=== PATIENT | female | born 1935 | race Caucasian/White ===

== ENCOUNTER → 2018-04-09 13:43 | Outpatient (REF) | payer MEDICARE, OTHER, SELFPAY | LOC: LAB 13:43 | PROVIDERS: Visit Provider Otolaryngology Facial Plastic Surgery | DX: J32.4 Chronic pansinusitis (principal); J32.0 Chronic maxillary sinusitis | CPT/HCPCS: 87070; 87077; 87147; 87186; 87205 ==

== ENCOUNTER → 2018-06-09 14:46 | Outpatient (CLI) | payer MEDICARE, OTHER, SELFPAY ==
[2018-06-09 15:33] LABS: Erythrocyte Sedimentation Rate 18 MM/HR (0-20)
[2018-06-09 15:55] LABS: C-Reactive Protein Quant < 0.5 mg/dL (<1.0)
== END ==
PROVIDERS: PCP Physician Assistant Medical; Visit Provider Specialist
DX: M31.6 Other giant cell arteritis (principal)
CPT/HCPCS: 36415; 85651; 86140

== ENCOUNTER → 2018-07-04 17:54 | Outpatient (REF) | payer MEDICARE, OTHER, SELFPAY | LOC: LAB 17:54 | PROVIDERS: PCP Physician Assistant Medical; Visit Provider Otolaryngology Facial Plastic Surgery | DX: R51 Headache (principal); J32.0 Chronic maxillary sinusitis | CPT/HCPCS: 87070; 87075; 87077; 87147; 87186; 87205 ==

== ENCOUNTER → 2019-07-16 15:57 | Outpatient (CLI) | payer MEDICARE, OTHER, SELFPAY ==
--- NOTE | 2019-07-16 15:59 | DI.MG.S_ITS ---
BILATERAL DIGITAL SCREENING MAMMOGRAM 3D/2D WITH CAD: 07/16/2019 CLINICAL: Routine screening. Family history of breast cancer. Comparison is made to exam dated: 08/29/2017 mammogram - [facility]. There are scattered fibroglandular elements in both breasts. Current study was also evaluated with a Computer Aided Detection (CAD) system. There are benign calcifications in both breasts. No significant masses, calcifications, or other findings are seen in either breast. There has been no significant interval change. IMPRESSION: There is no mammographic evidence of malignancy. A 1 year screening mammogram is recommended. This exam was interpreted at Station ID: [id number]. NOTE: For mammograms, a report in lay terms will be sent to the patient. Approximately 15% of breast malignancies will not be visualized mammographically. In the management of a palpable breast mass, a negative mammogram must not discourage biopsy of a clinically suspicious lesion. Electronically Signed By: Vicente Spangler M.D. aty/ami:07/16/2019 16:52:44 letter sent: Normal Exam ACR BI-RADS Category 2: Benign Finding(s) 3342F
== END ==
PROVIDERS: PCP Family Medicine; Visit Provider Family Medicine
DX: Z12.31 Encounter for screening mammogram for malignant neoplasm of breast (principal); Z80.3 Family history of malignant neoplasm of breast
CPT/HCPCS: 77063; 77067

== ENCOUNTER → 2019-08-13 08:16 | Outpatient (CLI) | payer MEDICARE, OTHER, SELFPAY ==
[2019-08-13 09:45] LABS: Alanine Aminotransferase 26 IU/L (9-52); Albumin 3.9 g/dL (3.5-5.0); Albumin Globulin Ratio 1.3 (1.0-2.8); Alkaline Phosphatase 56 U/L (38-126); Aspartate Aminotransferase 23 IU/L (14-36); BUN Creatinine Ratio 28.9 (6-22); Bilirubin Total 0.5 mg/dL (0.2-1.3); Blood Urea Nitrogen 26 mg/dL (7-17); Calcium 9.4 mg/dL (8.4-10.2); Carbon Dioxide 30 mmol/L (22-32); Chloride 100 mmol/L (98-107); Cholesterol 231 mg/dL (140-199); Estimated Glomerular Filt Rate 59.9 mL/min (>60); Glucose 101 mg/dL (80-110); HDL Cholesterol 78 mg/dL (40-60); HEMOLYSIS < 15 (0-50); LDL Cholesterol Calculated 131 mg/dL (<100); Potassium 4.4 mmol/L (3.4-5.1); Sodium 137 mmol/L (137-145); Total Protein 6.9 g/dL (6.3-8.2); Triglycerides 112 mg/dL (35-150)
== END ==
PROVIDERS: PCP Family Medicine; Visit Provider Family Medicine
DX: E78.5 Hyperlipidemia, unspecified (principal); R73.03 Prediabetes
CPT/HCPCS: 36415; 80053; 80061

== ENCOUNTER → 2020-03-28 12:32 | Outpatient (CLI) | payer MEDICARE, OTHER, SELFPAY | PROVIDERS: PCP Family Medicine; Referring Provider Family Medicine; Visit Provider Family Medicine | DX: M81.0 Age-related osteoporosis without current pathological fracture (principal); Z78.0 Asymptomatic menopausal state; Z82.62 Family history of osteoporosis | CPT/HCPCS: 77080 ==

== ENCOUNTER → 2020-04-17 10:25 | Outpatient (CLI) | payer MEDICARE, OTHER, SELFPAY ==
[2020-04-18 08:42] LABS: COVID19 Sendout Not Detected (Not Detect)
== END ==
PROVIDERS: PCP Family Medicine; Visit Provider Nurse Practitioner
DX: Z01.812 Encounter for preprocedural laboratory examination (principal)
CPT/HCPCS: 87635

== ENCOUNTER → 2020-05-16 08:36 | Outpatient (CLI) | payer MEDICARE, OTHER, SELFPAY ==
[2020-05-16 09:44] LABS: Alanine Aminotransferase 16 IU/L (<35); Albumin 4.1 g/dL (3.5-5.0); Albumin Globulin Ratio 1.3 (1.0-2.8); Alkaline Phosphatase 58 U/L (38-126); Aspartate Aminotransferase 29 IU/L (14-36); BUN Creatinine Ratio 25.9 (6-22); Bilirubin Total 0.6 mg/dL (0.2-1.3); Blood Urea Nitrogen 22 mg/dL (7-17); Calcium 9.9 mg/dL (8.4-10.2); Carbon Dioxide 30 mmol/L (22-32); Chloride 102 mmol/L (98-107); Cholesterol 211 mg/dL (140-199); Estimated Glomerular Filt Rate > 60.0 mL/min (>60); Globulin 3.2 g/dL (1.7-4.1); Glucose 119 mg/dL (80-110); HDL Cholesterol 62 mg/dL (40-60); HEMOLYSIS < 15 (0-50); LDL Cholesterol Calculated 130 mg/dL (<100); Potassium 4.6 mmol/L (3.4-5.1); Sodium 137 mmol/L (137-145); Total Protein 7.3 g/dL (6.3-8.2); Triglycerides 94 mg/dL (35-150); Uric Acid 5.7 mg/dL (2.5-6.2)
[2020-05-16 10:11] LABS: Vitamin D 25 Hydroxy (D3) 72.9 ng/mL (30.0-100.0)
== END ==
PROVIDERS: PCP Family Medicine; Referring Provider Family Medicine; Visit Provider Family Medicine
DX: E78.5 Hyperlipidemia, unspecified (principal); M81.0 Age-related osteoporosis without current pathological fracture; M10.9 Gout, unspecified
CPT/HCPCS: 36415; 80053; 80061; 82306; 84550

== ENCOUNTER 2020-05-21 09:32 | Emergency (ER) | payer MEDICARE, OTHER, SELFPAY ==
[2020-05-21 09:37] VITALS: BP 178/85; PULSE 82; RESP 14; TEMP 36.4; O2SAT 98; BMI 23.0
--- NOTE | 2020-05-21 09:40 | DI.RAD.S_ITS ---
PROCEDURE: XR WRIST LT MIN 3V INDICATIONS: wrist injuyr TECHNIQUE: Four views of the wrist were acquired. COMPARISON: None. FINDINGS: Bones: Decreased mineralization. Subtle cortical irregularity along the dorsum of the distal radius indicating an impaction fracture. Normal bone alignment.. No suspicious bony lesions. Scaphoid view: Intact scaphoid. Soft tissues: Mild dorsal soft tissue swelling. No suspicious soft tissue calcifications. IMPRESSION: Nondisplaced impaction fracture oriented transversely across the distal radius. Dictated by: Mildred Toussaint M.D. on 05/21/2020 at 9:10 Approved by: Mildred Toussaint M.D. on 05/21/2020 at 9:11
--- NOTE | 2020-05-21 12:05 | ED_ITS ---
HPI - Extremity Injury (Upper) <Sona WatkinsANUSHA jimenez - Last Filed: 05/21/20 14:02> General Chief Complaint: Extremity Injury, Upper Stated Complaint: GLF, possibly fractured left wrist Time Seen by Provider: 05/21/20 11:26 Source: patient Mode of arrival: Ambulatory Limitations: no limitations History of Present Illness HPI narrative: 84yo female presents to the ED for L wrist pain that started yesterday after a fall. Patient states she was trying to sit on a chair when she missed the chair and fell onto her left hand yesterday. She noticed some pain and later some bruising, she states this morning when she woke up she noticed it was swelling and thought she should have at x-rayed. Patient states she took Tylenol last night which relieved most pain. She states she is not allergic to Tylenol and is unsure why it is on her allergy list. She has taken it frequently in the past without any issues. Patient denies any other injuries such as head injury, elbow pain, shoulder pain , knee pain, hip pain, or any other concerns. She denies any fevers, chills, nausea, vomiting, diarrhea, or any other concerns. Related Data Home Medications Medication Instructions Recorded Confirmed loteprednol etabonate 0.5 % eye EYE-BOTH ONCE ml 02/02/19 05/11/20 drops,suspension Previous Rx's Medication Instructions Recorded ezetimibe 10 mg tablet 10 mg PO Q DAY #30 tab 12/02/19 fluticasone propionate 50 1 spray NASAL BID #6.6 gram 02/05/20 mcg/actuation nasal spray,suspension nadolol 80 mg tablet 80 mg PO DAILY #90 tab 02/05/20 ergotamine 1 mg-caffeine 100 mg 1 tab PO Q30M #30 tab MDD 3 04/06/20 tablet omeprazole 20 mg capsule,delayed 20 mg PO BID #180 cap 04/06/20 release Allergies Allergy/AdvReac Type Severity Reaction Status Date / Time dichloralphenazone Allergy Mild unknown Verified 05/21/20 09:37 [From MIDRIN] erythromycin base Allergy Mild rash Verified 05/21/20 09:37 [From E-MYCIN] isometheptene [From MIDRIN] Allergy Mild unknown Verified 05/21/20 09:37 metronidazole [From FLAGYL] Allergy Mild unknown Verified 05/21/20 09:37 nitrofurantoin Allergy Mild rash Verified 05/21/20 09:37 [From MACRODANTIN] Sulfa (Sulfonamide Allergy Mild RASH/FEVER Verified 05/21/20 09:37 Antibiotics) [SULFA (SULFONAMIDE ANTIBIOTICS)] doxycycline Allergy Unknown Verified 05/21/20 09:37 Review of Systems <ANUSHA Briscoe - Last Filed: 05/21/20 14:02> Review of Systems Narrative: REVIEW OF SYSTEMS: GENERAL: Denies fever or chills. HENT: No head trauma. EYES: No vision changes. CARDIOVASCULAR: No chest pain or syncope. RESPIRATORY: No shortness of breath. GASTROINTESTINAL: No nausea, vomiting, diarrhea, or constipation. MUSCULOSKELETAL: Complains of left wrist pain, see HPI. INTEGUMENTARY: No rash, lesions, or pruritus. NEURO: No numbness, tingling. PSYCH: No behavior or mood changes. Patient History <ANUSHA Briscoe - Last Filed: 05/21/20 14:02> Medical History Actinic keratosis (Chronic) Chronic kidney disease (CKD) stage G3a/A1, moderately decreased glomerular filtration rate (GFR) between 45-59 mL/min/1.73 square meter and albuminuria creatinine ratio less than 30 mg/g (Acute) Endometriosis (Chronic) GERD (gastroesophageal reflux disease) (Chronic) Impaired fasting glucose (Acute) Migraine headache without aura (Chronic) Osteoporosis (Chronic) Recurrent sinusitis (Chronic) Rosacea (Chronic) Seasonal allergies (Chronic) Vertebral compression fracture (Acute) Surgical History Anesthesia (Resolved) History of colonoscopy (Resolved) History of esophagogastroduodenoscopy (EGD) (Resolved) History of sinus surgery (Resolved) Family History Father Cancer Mother Hypertension History of heart disease Brother Cancer Sister Cancer Grandmother Diabetes mellitus Grandmother No problems noted. Social History Smoking Status: Never smoker Smoking Status: Never smoker alcohol intake frequency: holidays/special occasions only Substance Use Type: does not use Exam <ANSUHA Briscoe - Last Filed: 05/21/20 14:02> Initial Vital Signs Initial Vital Signs: Vital Signs Temperature 97.6 F 05/21/20 09:37 Pulse Rate 82 05/21/20 09:37 Respiratory Rate 14 05/21/20 09:37 Blood Pressure 178/85 H 05/21/20 09:37 Pulse Oximetry 98 05/21/20 09:37 PHYSICAL EXAMINATION: GENERAL: Well groomed, alert, and cooperative. Answers questions promptly and appropriately. Vital signs noted. HENT: Normocephalic, atraumatic. EYES: Symmetrical, sclera white, no periorbital swelling. CARDIOVASCULAR: S1 and S2 sounds normal. Regular rate and rhythm, no murmurs, clicks, or bruits. No pedal edema. RESPIRATORY: Normal respiratory rate, trachea midline, airway patent. No stridor, nasal flaring or accessory muscle use. Lungs are clear in all whitaker. MUSCULOSKELETAL: Tenderness to left wrist, minor swelling, and a moderate amount of ecchymosis noted. Patient reports increased pain with supination and pronation. Patient is able to make a fist with her hand without worsening pain, no pain with palpation of hand, fingers, elbow, shoulder, or hip. Normal gait and coordination. Equal tone and mass bilaterally. EXTREMITIES: CMS intact. No pedal edema. Radial pulses 2+ and equal bilaterally. SKIN: Warm, dry, soft, appropriate color for ethnicity. No lesions, rashes, or wounds. NEURO: Alert and Oriented X 3. No sensory deficits. PSYCH: Appropriate affect and mood. <Yann Hoang MD - Last Filed: 05/21/20 17:17> Initial Vital Signs Initial Vital Signs: Vital Signs Temperature 97.6 F 05/21/20 09:37 Pulse Rate 82 05/21/20 09:37 Respiratory Rate 14 05/21/20 09:37 Blood Pressure 178/85 H 05/21/20 09:37 Pulse Oximetry 98 05/21/20 09:37 Procedures <ANUSHA Briscoe - Last Filed: 05/21/20 14:02> Orthopedic Splinting/Casting Injury #1: Side: left Upper Extremity Injury Location: wrist Upper Extremity Immobilizer: sling/shoulder immobilizer and sugar tong splint Post splinting neuro exam: intact Post splinting vascular exam: intact Placed by: Nursing Additional Comments: CMS intact pre and post splint application. Course <ANUSHA Briscoe - Last Filed: 05/21/20 14:02> Course Course Narrative: Patient given Tylenol prior to splinting for comfort. Denies need of any other stronger pain medication. Orders Ordered: ED Orders 05/21/20 09:40 XR wrist LT min 3V Stat Discontinued Medications Acetaminophen (Tylenol) 975 mg PO NOW ONE Stop: 05/21/20 11:53 Last Admin: 05/21/20 12:17 Dose: 975 mg Documented by: LYNNE Consultations Consultation #1: Patient staffed with Dr. Hoang discussed x-ray results and plan of care. Vital Signs Vital signs: Vital Signs - 8 hr 05/21/20 09:37 05/21/20 12:38 Temperature 97.6 F Pulse Rate 82 72 Respiratory Rate 14 16 Blood Pressure 178/85 H 173/78 H Pulse Oximetry 98 99 <Yann Hoang MD - Last Filed: 05/21/20 17:17> Orders Ordered: ED Orders 05/21/20 09:40 XR wrist LT min 3V Stat Discontinued Medications Acetaminophen (Tylenol) 975 mg PO NOW ONE Stop: 05/21/20 11:53 Last Admin: 05/21/20 12:17 Dose: 975 mg Documented by: LYNNE Vital Signs Vital signs: Vital Signs - 8 hr 05/21/20 09:37 05/21/20 12:38 Temperature 97.6 F Pulse Rate 82 72 Respiratory Rate 14 16 Blood Pressure 178/85 H 173/78 H Pulse Oximetry 98 99 MDM - Extremity Injury (Upper) <ANUSHA Briscoe - Last Filed: 05/21/20 14:02> Medical Records Attestation: I reviewed the patient's medical records. Lab Data Attestation: I reviewed the patient's lab results. Imaging Data Extremity x-ray #1: Radiologist's Impression: [address] [address] XRay Report Signed Patient: Emily Mathias MMR#: [id number] : 1936Acct:[id number] Age/Sex: 84 / FDate of Service: 08/08/20 Loc: ED Accession Number: [id number] Procedure: XR wrist LT min 3V Ordering Provider: Yann Hoang MD PROCEDURE: XR WRIST LT MIN 3V INDICATIONS: wrist injuyr TECHNIQUE: Four views of the wrist were acquired. COMPARISON: None. FINDINGS: Bones: Decreased mineralization. Subtle cortical irregularity along the dorsum of the distal radius indicating an impaction fracture. Normal bone alignment.. No suspicious bony lesions. Scaphoid view: Intact scaphoid. Soft tissues: Mild dorsal soft tissue swelling. No suspicious soft tissue calcifications. IMPRESSION: Nondisplaced impaction fracture oriented transversely across the distal radius. Dictated by: Mildred Toussaint M.D. on 05/21/2020 at 9:10 Approved by: Mildred Toussaint M.D. on 05/21/2020 at 9:11 [facility] Narrative Medical decision making narrative: 84-year-old female presents to the emergency department for left wrist pain after fall. Due to history, patient's fall seems clearly mechanical. Patient is alert and awake, no concerns for disorientation. X-ray reveals fracture to left radius, CMS intact, radial pulses equal bilaterally. Splint was applied, CMS intact pre and post splint application. Patient was referred to Ortho. Patient declined stronger pain medication, accepted Tylenol. Return precautions given for new or worsening symptoms. Patient agreed to plan of care verbalized understanding. Discharge Plan Departure Patient Disposition: Home Clinical Impression: Distal radial fracture Qualifiers: Encounter type: initial encounter Fracture type: closed Fracture morphology: o ther fracture Laterality: left Qualified Code(s): S52.592A - Other fractures of lower end of left radius, initial encounter for closed fracture Discharge Date/Time: 05/21/20 13:14 Instructions: DI for Wrist Fracture Activity Restrictions/Additional Instructions: Thank you for entrusting me with your care today. As discussed, your wrist is broken. We have applied a splint, please leave this in place until you are evaluated by an orthopedic. If the Micah wrap feels tight, you may loosen it. Use the sling as needed for comfort. You can take Tylenol as needed for pain. Please call the orthopedic listed below on Saturday to schedule appointment in the next few weeks. Return emergency department for any new or worsening symptoms such as severe pain, dizziness, syncope, numbness in your hand, or any other concerns. Prescriptions: No Action ezetimibe [Zetia] 10 mg tablet 10 mg PO Q DAY Qty: 30 RF: 0 fluticasone propionate 50 mcg/actuation spray,suspension 1 spray NASAL BID Qty: 6.6 RF: 0 nadolol 80 mg tablet 80 mg PO DAILY Qty: 90 RF: 3 ergotamine-caffeine [Cafergot] 1-100 mg tablet 1 tab PO Q30M MDD 3 Qty: 30 RF: 3 omeprazole 20 mg capsule,delayed release(DR/EC) 20 mg PO BID Qty: 180 RF: 0 Lotemax 0.5 % drops,suspension EYE-BOTH ONCE RF: 0 Referrals: Elmo Quezada MD [Physician] - Lin Grady DO [Primary Care Provider] -
[2020-05-21] MEDS: ACETAMINOPHEN 325 MG TABLET 975 MG PO (12:17)
[2020-05-21 12:38] VITALS: BP 173/78; PULSE 72; RESP 16; O2SAT 99
== END 2020-05-21 13:14 | disposition home or self-care (01) ==
PROVIDERS: Emergency Provider Nurse Practitioner; PCP Family Medicine
DX: S52.592A Other fractures of lower end of left radius, initial encounter for closed fracture (principal); W07.XXXA Fall from chair, initial encounter
CPT/HCPCS: 29125; 73110; 99283; 99284

== ENCOUNTER → 2020-07-16 13:11 | Outpatient (CLI) | payer MEDICARE, OTHER, SELFPAY ==
--- NOTE | 2020-07-16 13:59 | DI.MRI.S_ITS ---
PROCEDURE: MR SHOULDER RT WO CON INDICATIONS: right shoulder pain TECHNIQUE: Noncontrast oblique coronal T2 fast spin echo with fat saturation, oblique sagittal T1 spin echo and T2 fast spin echo with fat saturation, axial T1 spin echo and T2 fast spin echo with fat saturation through the shoulder. COMPARISON: None. FINDINGS: Image quality: Excellent. Rotator cuff: There is full-thickness rupture of distal supraspinatus at its insertion on the humeral head with up to 4 centimeter medial retraction of torn tendon fibers to the level of glenoid. Tendinosis and low-grade articular surface partial-thickness tear involving distal infraspinatus is seen. Distal subscapularis tendinosis and low-grade partial-thickness tear is also noted. Sagittal images demonstrate severe supraspinatus muscle atrophy. Bones and bursae: No bone marrow contusions or fractures. Moderate acromioclavicular joint and glenohumeral joint osteoarthritic changes are seen. Slight superior migration of humeral head in relation to glenoid is also noted. There is moderate amount of joint effusion and subacromial subdeltoid bursal fluid. Capsule and soft tissues: In the absence of intra-articular contrast, there is suggestion of superior anterior labral tear at 1 to 2 o'clock position. The glenohumeral ligaments appear intact. The long head of the biceps tendinosis and low-grade partial-thickness tear is seen. The rotator interval appears normal, without fibrosis. The coracohumeral ligament is normal in thickness. IMPRESSION: 1. Full-thickness rupture of distal supraspinatus at its insertion on the humeral head with up to 4 centimeter medial retraction of torn tendon fibers to the level of glenoid. Severe supraspinatus muscle atrophy. 2. Tendinosis and low-grade articular surface partial-thickness tear involving distal infraspinatus. Distal subscapularis tendinosis and low-grade partial-thickness tear. 3. Moderate acromioclavicular joint and glenohumeral joint osteoarthritis. Moderate amount of joint effusion and subacromial subdeltoid bursal fluid. No gross loose body. 4. Suggestion of focal superior anterior labral tear at 1 to 2 o'clock position. 5. Proximal intra-articular portion of long head of biceps tendinosis and low-grade partial-thickness tear. Dictated by: Yannick Valenzuela M.D. on 07/18/2020 at 9:46 Approved by: Yannick Valenzuela M.D. on 07/18/2020 at 9:50
== END ==
PROVIDERS: PCP Family Medicine; Referring Provider Family Medicine; Visit Provider Family Medicine
DX: M25.511 Pain in right shoulder (principal); M75.121 Complete rotator cuff tear or rupture of right shoulder, not specified as traumatic; S46.111A Strain of muscle, fascia and tendon of long head of biceps, right arm, initial encounter; M19.011 Primary osteoarthritis, right shoulder; M25.411 Effusion, right shoulder
CPT/HCPCS: 73221

== ENCOUNTER → 2020-07-19 11:30 | Outpatient (CLI) | payer MEDICARE, OTHER, SELFPAY ==
--- NOTE | 2020-07-19 | DI.MG.S_ITS ---
BILATERAL DIGITAL SCREENING MAMMOGRAM 3D/2D WITH CAD: 07/19/2020 CLINICAL: Routine screening. Family history of breast cancer. Comparison is made to exams dated: 07/16/2019 mammogram - [facility] and 08/29/2017 mammogram - [facility]. There are scattered fibroglandular elements in both breasts. Current study was also evaluated with a Computer Aided Detection (CAD) system. There are benign calcifications in both breasts. No significant masses, calcifications, or other findings are seen in either breast. There has been no significant interval change. IMPRESSION: BENIGN There is no mammographic evidence of malignancy. A 1 year screening mammogram is recommended. This exam was interpreted at Station ID: [id number]. NOTE: For mammograms, a report in lay terms will be sent to the patient. Approximately 15% of breast malignancies will not be visualized mammographically. In the management of a palpable breast mass, a negative mammogram must not discourage biopsy of a clinically suspicious lesion. Electronically Signed By: Robin roman/ami:07/19/2020 14:40:15 letter sent: Normal Exam ACR BI-RADS Category 2: Benign Finding(s) 3342F
== END ==
PROVIDERS: PCP Family Medicine; Referring Provider Family Medicine; Visit Provider Family Medicine
DX: Z12.31 Encounter for screening mammogram for malignant neoplasm of breast (principal); Z80.3 Family history of malignant neoplasm of breast
CPT/HCPCS: 77063; 77067

== ENCOUNTER → 2021-02-27 10:09 | Outpatient (CLI) | payer MEDICARE, OTHER, SELFPAY ==
[2021-02-27 11:06] LABS: Add Manual Diff / Slide Review NO; Basophils Absolute Auto 0 /uL (0-100); Basophils Percent Auto 0.8 % (0-2); Eosinophils Absolute Auto 200 /uL (0-450); Eosinophils Percent Auto 3.7 % (2-4); Hemoglobin 14.8 g/dL (12.0-16.0); Lymphocytes Absolute Auto 1500 /uL (1100-4500); Lymphocytes Percent Auto 27.5 % (25-40); Mean Corpuscular HGB Conc 33.5 % (30-36); Mean Corpuscular Hemoglobin 32.7 PG (26-34); Mean Corpuscular Volume 97.4 fL (80-100); Monocytes Absolute Auto 800 /uL (0-900); Monocytes Percent Auto 14.1 % (3-14); Neutrophils Absolute Auto 3000 /uL (1500-7000); Neutrophils Percent Auto 53.9 % (50-75); Platelet Count 195 X10^3/uL (150-400); Red Blood Cell Count 4.52 X10^6/uL (4.0-5.2); Red Cell Distribution Width 12.9 % (11.6-14.8); White Blood Cell Count 5.6 X10^3/uL (4.5-11.0)
[2021-02-27 12:04] LABS: Vitamin D 25 Hydroxy (D3) 80.6 ng/mL (30.0-100.0)
[2021-02-27 12:14] LABS: TSH w/ Reflex to FT4 0.54 uIU/mL (0.47-4.68)
[2021-02-27 12:35] LABS: Vitamin B12 733 pg/mL (239-931)
[2021-02-28 05:11] LABS: Homocysteine 9.3 umol/L (0.0-21.3)
[2021-03-01 00:08] LABS: Methylmalonic Acid,Serum 212 nmol/L (0-378)
== END ==
PROVIDERS: Family Provider Family Medicine; PCP Family Medicine; Referring Provider Family Medicine; Visit Provider Family Medicine
DX: G31.84 Mild cognitive impairment of uncertain or unknown etiology (principal); M85.80 Other specified disorders of bone density and structure, unspecified site; Z78.0 Asymptomatic menopausal state
CPT/HCPCS: 36415; 82306; 82607; 83090; 83921; 84443; 85025

== ENCOUNTER → 2021-03-27 08:17 | Outpatient (CLI) | payer MEDICARE, OTHER, SELFPAY ==
[2021-03-27 09:37] LABS: Alanine Aminotransferase 17 IU/L (<35); Albumin 3.8 g/dL (3.5-5.0); Albumin Globulin Ratio 1.2 (1.0-2.8); Alkaline Phosphatase 58 U/L (38-126); Aspartate Aminotransferase 29 IU/L (14-36); BUN Creatinine Ratio 23.2 (6-22); Bilirubin Total 0.4 mg/dL (0.2-1.3); Blood Urea Nitrogen 22 mg/dL (7-17); Calcium 9.6 mg/dL (8.4-10.2); Carbon Dioxide 31 mmol/L (22-32); Chloride 103 mmol/L (98-107); Cholesterol 200 mg/dL (140-199); Globulin 3.2 g/dL (1.7-4.1); Glucose 110 mg/dL (80-110); HDL Cholesterol 62 mg/dL (40-60); HEMOLYSIS < 15 (0-50); LDL Cholesterol Calculated 117 mg/dL (<100); Potassium 4.5 mmol/L (3.4-5.1); Sodium 140 mmol/L (137-145); Triglycerides 106 mg/dL (35-150)
== END ==
PROVIDERS: Family Provider Family Medicine; PCP Family Medicine; Referring Provider Family Medicine; Visit Provider Family Medicine
DX: E78.5 Hyperlipidemia, unspecified (principal); R73.01 Impaired fasting glucose
CPT/HCPCS: 36415; 80053; 80061

== ENCOUNTER 2021-04-19 13:30 | Outpatient (RCR) | payer MEDICARE, OTHER, SELFPAY ==
--- NOTE | 2021-02-13 15:36 | ST.OPIE ---
Visit Care Team Role Provider Type Lin Grady DO Attending Provider Physician Family Provider Primary Care Provider Referring Provider Specialty: Family Practice Address: [address] [place] [address], [address], [place], [facility] Email: [email or web address] Speech-Language Pathology Initial Evaluation [employer] Adult Cognitive Linguistic Eval Start: 02/13/21 10:30 Freq: Status: Active Protocol: Document 02/13/21 10:30 RIOS (Rec: 02/13/21 10:52 RIOS [email or web address]) Adult Cognitive Linguistic Evaluation Session Time Visit Start Time 10:30 Visit Stop Time 11:30 Total Visit Minutes 60 Visit Information Visit Number Initial Eval Plan of Care Dates 02/13/21 - 05/16/21 Insurance Information Medicare Referral Referring Provider Dr. Bhatia Reason for Referral Cognitive decline Setting Assessment Location Outpatient Care Visit Type Note Type Initial evaluation Next Note Type Next Note Type Treatment Note Patient Information Identification Type Name,ID Card Medical History The pt is an 85-yr-old right- handed female who c/o memory decline over the last year, primarily since fall 2019. She was evaluated by Dr. Maria Del Rosario Henriquez, Clinical Psychologist , on 01/03/21 with follow-up discussion of evaluation results on 01/25/21. Neuropsychological evaluation revealed minor neurocognitive impairment with deficits in areas of Camden Testing (Camden B), list learning, story recall, visual-spatial abilities, complex visual attention, and non- contextualized verbal learning . She tested at low average/ normal levels in areas of list and figure recall, contextualized verbal learning and recall, and visual recall . Alzheimer's disease in its early stages was unable to be ruled out. The pt c/o WFDs, although none was observed by Dr. Henriquez during evaluation. The pt is (27 yrs) and lives alone. She does not have children but has 2 nephews. She reports memory challenges common to individuals of her age, including WFDs, difficulty tracking dates, forgetting why she came into a room, etc. She has experienced significant decline in social activity since the COVID-19 pandemic. 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 The pt reported forgetting things like yesterday's events, date, and where she gerber. No problem with medication or bill paying. She uses services such as automatic bill payments and organizes physical bill in order of due dates. The pt did report difficulty sleeping well d/t nighttime need to urinate and headaches. Socially, the pt engages with a couple of girlfriends, lunch 1x/wk and daily conversations . Since onset of the pandemic, she has not been meeting with her islam group, playing cards at the [employer], or getting together with another weekly social group. She is, however, reading more and does variety of word puzzles daily. Assessment Oral Motor Examination Completed No Informal Assessment Receptive Language Normal Yes Expressive Language Normal Yes Pragmatic Language Normal Yes Speech Normal Yes Cognition Normal No: Mild impairment in memory and attention Formal Assessment Standardized Test/Screener Type Scales of Cognitive and Communicative Ability (SCCAN) Administration Complete Results Raw Score: 77 Percentile Rank: <1 SCCAN Index: 50 Degree of Severity: Mild Impairment SCCAN Scale Performance: Oral Expression: 95% Orientation: 100% Memory: 53% Speech Comprehension: 85% Reading Comprehension: 92% Writin% Attention: 63% Problem Solvin% Findings/Results Language Function Within normal limits Cognitive Function Mildly impaired Findings The pt presents with mild cognitive impairment likely associated with age and reduced social engagement d/t COVID-19 restrictions. Findings were consistent with the pt's expressed concerns. Cognitive Communication Deficits Self-awareness of Cognitive- Predictive awareness (able to Communication Deficits predict problem; impact of impairments) Concomitant Factors Concomitant Factors Hearing loss Impact on Functioning Activity Limits/Particip.Rest. Mild: General Tasks and Demands Household Tasks Interpersonal Interactions Prognosis Prognosis Good Based on Duration of symptoms/severity, Time since onset Plan of Care Speech-Language Treatment Yes Frequency 1x/wk Duration up to 12 wks Patient/Caregiver Education Described results of evaluation,Patient expressed understanding of evaluation, Patient expressed agreement with goals and treatment plans Short Term Goals 1. The pt will establish environmental modifications and routines to support memory and attention skills. 2. The pt will demonstrate understanding of internal memory strategies by recalling short messages/stories and lists of 5 items with 80% accuracy. 3. The pt will demonstrate ability to perform a variety of games to increase neural stimulation and improve memory , attention, and problem solving skills. Halfway Goals 1. The pt will use external memory supports as needed in 80% of opportunities to increase/maintain highest level of independence. 2. The pt will recall functional information WNL, using memory strategies and external supports as needed. 3. The pt will demonstrate compliance with varied HEP tasks increase cognitive challenge and promote wide transference of skills.
--- NOTE | 2021-02-22 13:11 | ST.OPTN ---
Visit Care Team Role Provider Type Lin Grady DO Attending Provider Physician Family Provider Primary Care Provider Referring Provider Address: [address] [place] [address], [address], [place], [address] BATTER OUT Treatment Note BATTER OUT Treatment Note Start: 02/13/21 10:30 Freq: Status: Active Protocol: Document 02/22/21 13:00 RIOS (Rec: 02/22/21 13:01 RIOS [email or web address]) Speech Pathology Treatment Note Session Time Visit Start Time 09:30 Visit Stop Time 10:20 Total Visit Minutes 50 Visit Information Visit Number 10/[id number] Plan of Care Dates 02/13/21 - 05/16/21 Insurance Information Medicare Setting Treatment Setting Outpatient Care Visit Type Note Type Treatment Note Next Note Type Next Note Type Treatment Note General Information General Information The pt is an 85-yr-old right- handed female who c/o memory decline over the last year, primarily since fall 2019. She was evaluated by Dr. Maria Del Rosario Henriquez, Clinical Psychologist , on 01/03/21 with follow-up discussion of evaluation results on 01/25/21. Neuropsychological evaluation revealed minor neurocognitive impairment with deficits in areas of [place] Testing ([place] B), list learning, story recall, visual-spatial abilities, complex visual attention, and non- contextualized verbal learning . She tested at low average/ normal levels in areas of list and figure recall, contextualized verbal learning and recall, and visual recall . Alzheimer's disease in its early stages was unable to be ruled out. The pt c/o WFDs, although none was observed by Dr. Henriquez during evaluation. The pt is (27 yrs) and lives alone. She does not have children but has 2 nephews. She reports memory challenges common to individuals of her age, including WFDs, difficulty tracking dates, forgetting why she came into a room, etc. She has experienced significant decline in social activity since the COVID-19 pandemic. Subjective Others Present Additional Therapist Observations/Patient Presentation Pt arrived on time. No new complaints. Student BATTER OUT was present throughout the session with the pt's verbal permission. Chief Complaint(s) Language,Cognitive Patient Knowledge/Awareness of BATTER OUT Role Good in Treatment Objective Short Term Goals 1. The pt will establish environmental modifications and routines to support memory and attention skills. 2. The pt will demonstrate understanding of internal memory strategies by recalling short messages/stories and lists of 5 items with 80% accuracy. 3. The pt will demonstrate ability to perform a variety of games to increase neural stimulation and improve memory , attention, and problem solving skills. Integrity Consultant Goals 1. The pt will use external memory supports as needed in 80% of opportunities to increase/maintain highest level of independence. 2. The pt will recall functional information WNL, using memory strategies and external supports as needed. 3. The pt will demonstrate compliance with varied HEP tasks increase cognitive challenge and promote wide transference of skills. Treatment Activities Educated pt on results of assessment. Initiated education RE external and internal memory and attention tools/strategies. Initiated development of external tools based on pt's identification of functional needs, including reusable card used to identify pt's destinations when driving. Instructed pt to observe her functional activities during the coming weeks until next session and choose 3 areas around which to increase attention. Pt verbalized agreement. Instructions provided in writing for recall and carryover. Assessment Patient Response to Treatment Good Rehab Potential Good Impairments Identified Cognitive-Linguistic Skills, Expressive Language,Memory - Short Term,Memory - Working Assessment of Improvement Pt was receptive to education and initial training. She was participatory in identifying trouble areas and developing external memory tools. Asked good questions, demonstrating understanding. Reviewed with Patient Goals,Progress Being Made,Home Exercise Program Patient/Caregiver Understanding Good Plan Amount of Therapy Recommended 2-3 Months Frequency of Treatment Once a Week Length of Session 45 Minutes Treatment Emphasis Next Session External memory tools; target tracking driving around community Therapeutic Contents Client Education,Cognitive- Linguistic Training,Home Exercise Program Provided Patient/Caregiver Instruction Home Exercise Program,Plan of Care,Questions/Concerns Therapy Recommendations Continue with Current Program
--- NOTE | 2021-03-06 16:05 | ST.OPTN ---
Visit Care Team Role Provider Type Lin Grady DO Attending Provider Physician Family Provider Primary Care Provider Referring Provider Address: [address] [place] [address], [address], [place], [address] CRIMINAL PSYCHOLOGIST Treatment Note CRIMINAL PSYCHOLOGIST Treatment Note Start: 02/13/21 10:30 Freq: Status: Active Protocol: Document 03/06/21 14:18 RIOS (Rec: 03/06/21 14:27 RIOS [email or web address]) Speech Pathology Treatment Note Session Time Visit Start Time 10:30 Visit Stop Time 11:20 Total Visit Minutes 50 Visit Information Visit Number 11/23 Plan of Care Dates 02/13/21 - 05/16/21 Insurance Information Medicare Setting Treatment Setting Outpatient Care Visit Type Note Type Treatment Note Next Note Type Next Note Type Treatment Note General Information General Information The pt is an 85-yr-old right- handed female who c/o memory decline over the last year, primarily since fall 2019. She was evaluated by Dr. Maria Del Rosario Henriquez, Clinical Psychologist , on 01/03/21 with follow-up discussion of evaluation results on 01/25/21. Neuropsychological evaluation revealed minor neurocognitive impairment with deficits in areas of [place] Testing ([place] B), list learning, story recall, visual-spatial abilities, complex visual attention, and non- contextualized verbal learning . She tested at low average/ normal levels in areas of list and figure recall, contextualized verbal learning and recall, and visual recall . Alzheimer's disease in its early stages was unable to be ruled out. The pt c/o WFDs, although none was observed by Dr. Henriquez during evaluation. The pt is (27 yrs) and lives alone. She does not have children but has 2 nephews. She reports memory challenges common to individuals of her age, including WFDs, difficulty tracking dates, forgetting why she came into a room, etc. She has experienced significant decline in social activity since the COVID-19 pandemic. Subjective Others Present Additional Therapist Observations/Patient Presentation Pt arrived on time. No new complaints. Pt reported repeating destinations to herself frequently when driving around town, which eliminated episodes of disorientation or memory lapses. Chief Complaint(s) Language,Cognitive Patient Knowledge/Awareness of CRIMINAL PSYCHOLOGIST Role Good in Treatment Patient/Caregiver Compliance with Home Excellent Exercise Program Objective Short Term Goals 1. The pt will establish environmental modifications and routines to support memory and attention skills. 2. The pt will demonstrate understanding of internal memory strategies by recalling short messages/stories and lists of 5 items with 80% accuracy. 3. The pt will demonstrate ability to perform a variety of games to increase neural stimulation and improve memory , attention, and problem solving skills. Trust Administrative Assistant Goals 1. The pt will use external memory supports as needed in 80% of opportunities to increase/maintain highest level of independence. 2. The pt will recall functional information WNL, using memory strategies and external supports as needed. 3. The pt will demonstrate compliance with varied HEP tasks increase cognitive challenge and promote wide transference of skills. Treatment Activities Provided pt with external memory tool to be posted in her car to assist in recall of destinations when driving. Pt was appreciative. Continued training pt in internal memory strategies around recalling daily events, word/information recall when under pressure, and recalling names. Pt agreed to establish new routine of checking the calendar every morning and evening to review daily events . At the end of the day, will note abdi words that indicate primary activities accomplished during the day and review these notes the following morning. Educated and trained pt to pause and take a deep breath when she feels pressure in conversation ([id number] feelings) in order to reduce pressure/stress and to give herself time to think before responding. Recommended use of a go-to statement, such as, That's a good question. Let me think about that... to further reduce pressure and provide additional time that will promote language flow. Educated and trained pt in use of association strategies for name recall. The pt identified persons in her functional environment and, with clinician assistance, identified useful associations to assist in recalling their names. The pt was highly participatory and receptive to all education and training. Recommendations were provided in writing to promote home practice and carryover. Assessment Patient Response to Treatment Good Rehab Potential Good Impairments Identified Cognitive-Linguistic Skills, Expressive Language,Memory - Short Term,Memory - Working Progress Towards Goals Good Progress Assessment of Overall Progress Improving Assessment of Improvement Pt was receptive to education and initial training. She was participatory in identifying associations between target items, demonstrating understanding. She has made good progress implementing targets from last session and experienced improvement as a result. Reviewed with Patient Goals,Progress Being Made,Home Exercise Program Patient/Caregiver Understanding Good Plan Amount of Therapy Recommended 2-3 Months Frequency of Treatment Once a Week Length of Session 45 Minutes Treatment Emphasis Next Session External memory tools; target tracking driving around community Therapeutic Contents Client Education,Cognitive- Linguistic Training,Home Exercise Program Provided Patient/Caregiver Instruction Home Exercise Program,Plan of Care,Questions/Concerns Therapy Recommendations Continue with Current Program
--- NOTE | 2021-03-14 15:14 | ST.OPTN ---
Visit Care Team Role Provider Type Lin Grady DO Attending Provider Physician Family Provider Primary Care Provider Referring Provider Address: [address] [place] [address], [address], [place], [address] NEEDLE LOOM OPERATOR HELPER Treatment Note NEEDLE LOOM OPERATOR HELPER Treatment Note Start: 02/13/21 10:30 Freq: Status: Active Protocol: Document 03/14/21 15:04 RIOS (Rec: 03/14/21 15:14 RIOS [email or web address]) Speech Pathology Treatment Note Session Time Visit Start Time 13:30 Visit Stop Time 14:15 Total Visit Minutes 45 Visit Information Visit Number 12/21 Plan of Care Dates 02/13/21 - 05/16/21 Insurance Information Medicare Setting Treatment Setting Outpatient Care Visit Type Note Type Treatment Note Next Note Type Next Note Type Treatment Note General Information General Information The pt is an 85-yr-old right- handed female who c/o memory decline over the last year, primarily since fall 2019. She was evaluated by Dr. Maria Del Rosario Henriquez, Clinical Psychologist , on 01/03/21 with follow-up discussion of evaluation results on 01/25/21. Neuropsychological evaluation revealed minor neurocognitive impairment with deficits in areas of [place] Testing ([place] B), list learning, story recall, visual-spatial abilities, complex visual attention, and non- contextualized verbal learning . She tested at low average/ normal levels in areas of list and figure recall, contextualized verbal learning and recall, and visual recall . Alzheimer's disease in its early stages was unable to be ruled out. The pt c/o WFDs, although none was observed by Dr. Henriquez during evaluation. The pt is (27 yrs) and lives alone. She does not have children but has 2 nephews. She reports memory challenges common to individuals of her age, including WFDs, difficulty tracking dates, forgetting why she came into a room, etc. She has experienced significant decline in social activity since the COVID-19 pandemic. Subjective Others Present Additional Therapist Observations/Patient Presentation Pt arrived on time. No new complaints. Pt reported repeating use of written destinations list in car is a helpful reminder. Pt has been employing routine of recording daily events in calendar and reviewing calendar at morning and evening, which she reported is helpful in tracking daily events. Chief Complaint(s) Language,Cognitive Patient Knowledge/Awareness of NEEDLE LOOM OPERATOR HELPER Role Good in Treatment Patient/Caregiver Compliance with Home Excellent Exercise Program Objective Short Term Goals 1. The pt will establish environmental modifications and routines to support memory and attention skills. 2. The pt will demonstrate understanding of internal memory strategies by recalling short messages/stories and lists of 5 items with 80% accuracy. 3. The pt will demonstrate ability to perform a variety of games to increase neural stimulation and improve memory , attention, and problem solving skills. Power Shear Operator Goals 1. The pt will use external memory supports as needed in 80% of opportunities to increase/maintain highest level of independence. 2. The pt will recall functional information WNL, using memory strategies and external supports as needed. 3. The pt will demonstrate compliance with varied HEP tasks increase cognitive challenge and promote wide transference of skills. Treatment Activities Continued training pt in internal memory strategies around recalling daily events, word/information recall when under pressure, and recalling names. Pt recalled 2 names and the strategies trained last week to recall them. Continued training name recall strategies using pictures/ names unfamiliar to the pt. Pt collaborated with NEEDLE LOOM OPERATOR HELPER to identify strategies for recall . Given pictures without names , the pt identified 1/5 names independently, 3 additional names with prompts, and she was unable to name 1 person. Skilled feedback provided RE strength and nature of strategies. HEP tasks provided for additional practice. Continued training of strategies to reduce stress and WFDs resulting from feeling pressure to respond in the moment. Examples provided . Needs reinforcement. Assessment Patient Response to Treatment Good Rehab Potential Good Impairments Identified Cognitive-Linguistic Skills, Expressive Language,Memory - Short Term,Memory - Working Progress Towards Goals Good Progress Assessment of Overall Progress Improving Assessment of Improvement Pt was receptive to education and training. She was participatory in identifying associations between target items, demonstrating understanding of strategies. Several of the pt's associations for names were repetitive (i.e., I went to school with someone with that name), which reduced name recall. The pt was receptive to feedback and provided home practice task for reinforcement. She has made good progress implementing targets from last session and experienced improvement as a result. Reviewed with Patient Goals,Progress Being Made,Home Exercise Program Patient/Caregiver Understanding Good Plan Amount of Therapy Recommended 2-3 Months Frequency of Treatment Once a Week Length of Session 45 Minutes Treatment Emphasis Next Session Internal memory strategies for name recall Therapeutic Contents Client Education,Cognitive- Linguistic Training,Home Exercise Program Provided Patient/Caregiver Instruction Home Exercise Program,Plan of Care,Questions/Concerns Therapy Recommendations Continue with Current Program
--- NOTE | 2021-03-20 12:17 | ST.OPTN ---
Visit Care Team Role Provider Type Lin Grady DO Attending Provider Physician Family Provider Primary Care Provider Referring Provider Address: [address] [place] [address], [address], [place], [address] PEGGER DOBBY LOOMS Treatment Note PEGGER DOBBY LOOMS Treatment Note Start: 02/13/21 10:30 Freq: Status: Active Protocol: Document 03/20/21 12:10 RIOS (Rec: 03/20/21 12:17 RIOS [email or web address]) Speech Pathology Treatment Note Session Time Visit Start Time 10:35 Visit Stop Time 11:20 Total Visit Minutes 45 Visit Information Visit Number 01/21 Plan of Care Dates 02/13/21 - 05/16/21 Insurance Information Medicare Setting Treatment Setting Outpatient Care Visit Type Note Type Treatment Note Next Note Type Next Note Type Treatment Note General Information General Information The pt is an 85-yr-old right- handed female who c/o memory decline over the last year, primarily since fall 2019. She was evaluated by Dr. Maria Del Rosario Henriquez, Clinical Psychologist , on 01/03/21 with follow-up discussion of evaluation results on 01/25/21. Neuropsychological evaluation revealed minor neurocognitive impairment with deficits in areas of [place] Testing ([place] B), list learning, story recall, visual-spatial abilities, complex visual attention, and non- contextualized verbal learning . She tested at low average/ normal levels in areas of list and figure recall, contextualized verbal learning and recall, and visual recall . Alzheimer's disease in its early stages was unable to be ruled out. The pt c/o WFDs, although none was observed by Dr. Henriquez during evaluation. The pt is (27 yrs) and lives alone. She does not have children but has 2 nephews. She reports memory challenges common to individuals of her age, including WFDs, difficulty tracking dates, forgetting why she came into a room, etc. She has experienced significant decline in social activity since the COVID-19 pandemic. Subjective Others Present Additional Therapist Observations/Patient Presentation Pt arrived on time. No new complaints. Has been compliant with HEP. Chief Complaint(s) Language,Cognitive Patient Knowledge/Awareness of PEGGER DOBBY LOOMS Role Good in Treatment Patient/Caregiver Compliance with Home Excellent Exercise Program Objective Short Term Goals 1. The pt will establish environmental modifications and routines to support memory and attention skills. 2. The pt will demonstrate understanding of internal memory strategies by recalling short messages/stories and lists of 5 items with 80% accuracy. 3. The pt will demonstrate ability to perform a variety of games to increase neural stimulation and improve memory , attention, and problem solving skills. Heel Turner Goals 1. The pt will use external memory supports as needed in 80% of opportunities to increase/maintain highest level of independence. 2. The pt will recall functional information WNL, using memory strategies and external supports as needed. 3. The pt will demonstrate compliance with varied HEP tasks increase cognitive challenge and promote wide transference of skills. Treatment Activities Continued training pt in internal memory strategies around recalling names and making associations between various items. Initiated training in word recall strategies. Memory: Pt recalled names of persons introduced in last week's session indendently at start of session (pt had been rehearsing prior to start) and again with 90% accuracy at end of session, 1 name was incorrect and when asked again , the pt correctly named the person. Given 5 people/object pairs, the pt recalled 3/5 pairs independently + 2 when given item presented visually. At end of session, the pt demonstrated 100% recall. Word Recall: Initiated training using semantic features analysis. Given a target object and verbal instruction, the pt identified category, usage, location, properties, etc., about objects across 2 trials and restated instructions, demonstrating understanding of task. Discussed POC and agreen to continue with weekly sessions for 4 more weeks to continue word recall training. Assessment Patient Response to Treatment Excellent Rehab Potential Excellent Impairments Identified Cognitive-Linguistic Skills, Expressive Language,Memory - Short Term,Memory - Working Progress Towards Goals Good Progress Assessment of Overall Progress Improving Assessment of Improvement Pt is making excellent progress toward goals. She is highly compliant with HEP and is applying strategies in functional tasks with positive results. Reviewed with Patient Goals,Progress Being Made,Home Exercise Program Patient/Caregiver Understanding Good Plan Amount of Therapy Recommended 2-3 Months Frequency of Treatment Once a Week Length of Session 45 Minutes Treatment Emphasis Next Session Compensatory strategies for word recall Therapeutic Contents Client Education,Cognitive- Linguistic Training,Home Exercise Program Provided Patient/Caregiver Instruction Home Exercise Program,Plan of Care,Questions/Concerns Therapy Recommendations Continue with Current Program
--- NOTE | 2021-03-29 16:10 | ST.OPTN ---
Visit Care Team Role Provider Type Lin Grady DO Attending Provider Physician Family Provider Primary Care Provider Referring Provider Address: [address] [place] [address], [address], [place], [address] PACKING AND FINAL ASSEMBLY SUPERVISOR Treatment Note PACKING AND FINAL ASSEMBLY SUPERVISOR Treatment Note Start: 02/13/21 10:30 Freq: Status: Active Protocol: Document 03/29/21 16:03 RIOS (Rec: 03/29/21 16:10 RIOS [email or web address]) Speech Pathology Treatment Note Session Time Visit Start Time 08:30 Visit Stop Time 09:20 Total Visit Minutes 50 Visit Information Visit Number 02/20 Plan of Care Dates 02/13/21 - 05/16/21 Insurance Information Medicare Setting Treatment Setting Outpatient Care Visit Type Note Type Treatment Note Next Note Type Next Note Type Treatment Note General Information General Information The pt is an 85-yr-old right- handed female who c/o memory decline over the last year, primarily since fall 2019. She was evaluated by Dr. Maria Del Rosario Henriquez, Clinical Psychologist , on 01/03/21 with follow-up discussion of evaluation results on 01/25/21. Neuropsychological evaluation revealed minor neurocognitive impairment with deficits in areas of [place] Testing ([place] B), list learning, story recall, visual-spatial abilities, complex visual attention, and non- contextualized verbal learning . She tested at low average/ normal levels in areas of list and figure recall, contextualized verbal learning and recall, and visual recall . Alzheimer's disease in its early stages was unable to be ruled out. The pt c/o WFDs, although none was observed by Dr. Henriquez during evaluation. The pt is (27 yrs) and lives alone. She does not have children but has 2 nephews. She reports memory challenges common to individuals of her age, including WFDs, difficulty tracking dates, forgetting why she came into a room, etc. She has experienced significant decline in social activity since the COVID-19 pandemic. Subjective Others Present Additional Therapist Observations/Patient Presentation Pt arrived on time. No new complaints. Has been compliant with HEP. Reported incident of WFD that was resolved using semantic features strategy, resulting in pt's conversation partner identifying the lost word. Chief Complaint(s) Language,Cognitive Patient Knowledge/Awareness of PACKING AND FINAL ASSEMBLY SUPERVISOR Role Good in Treatment Patient/Caregiver Compliance with Home Excellent Exercise Program Objective Short Term Goals 1. The pt will establish environmental modifications and routines to support memory and attention skills. 2. The pt will demonstrate understanding of internal memory strategies by recalling short messages/stories and lists of 5 items with 80% accuracy. 3. The pt will demonstrate ability to perform a variety of games to increase neural stimulation and improve memory , attention, and problem solving skills. Staffing Consultant Goals 1. The pt will use external memory supports as needed in 80% of opportunities to increase/maintain highest level of independence. 2. The pt will recall functional information WNL, using memory strategies and external supports as needed. 3. The pt will demonstrate compliance with varied HEP tasks increase cognitive challenge and promote wide transference of skills. Treatment Activities Ongoing education and feedback was provided RE use of semantic features strategy for word recall, as well as neuroplasticity and impacts of aging and increased isolation on memory and general cognitive function. The pt had many quesitons related to this, all of which were answered to the best of the PACKING AND FINAL ASSEMBLY SUPERVISOR's ability. Pt completed semantic features analysis task, providing descriptions of known target words, then describing objects hidden from clinician's view. The pt provided appropriate descriptions sufficient for the clinician to guess each object correctly. Assessment Patient Response to Treatment Excellent Rehab Potential Excellent Impairments Identified Cognitive-Linguistic Skills, Expressive Language,Memory - Short Term,Memory - Working Progress Towards Goals Good Progress Assessment of Overall Progress Improving Assessment of Improvement The pt continues to make good progress toward goals and to implement both external tools and internal strategies successfully in her functional activities. She continues to ask excellent questions and be highly invested in and proactive about rehab. Reviewed with Patient Goals,Progress Being Made,Home Exercise Program Patient/Caregiver Understanding Good Plan Amount of Therapy Recommended 2-3 Months Frequency of Treatment Once a Week Length of Session 45 Minutes Treatment Emphasis Next Session Compensatory strategies for word recall Therapeutic Contents Client Education,Cognitive- Linguistic Training,Home Exercise Program Provided Patient/Caregiver Instruction Home Exercise Program,Plan of Care,Questions/Concerns Therapy Recommendations Continue with Current Program
--- NOTE | 2021-04-05 15:54 | ST.OPTN ---
Visit Care Team Role Provider Type Lin Grady DO Attending Provider Physician Family Provider Primary Care Provider Referring Provider Address: [address] [place] [address], [address], [place], [address] TELEMARKETING SUPERVISOR Treatment Note TELEMARKETING SUPERVISOR Treatment Note Start: 02/13/21 10:30 Freq: Status: Active Protocol: Document 04/05/21 15:49 RIOS (Rec: 04/05/21 15:54 RIOS [email or web address]) Speech Pathology Treatment Note Session Time Visit Start Time 13:30 Visit Stop Time 14:20 Total Visit Minutes 50 Visit Information Visit Number 03/23 Plan of Care Dates 02/13/21 - 05/16/21 Insurance Information Medicare Setting Treatment Setting Outpatient Care Visit Type Note Type Treatment Note Next Note Type Next Note Type Treatment Note General Information General Information The pt is an 85-yr-old right- handed female who c/o memory decline over the last year, primarily since fall 2019. She was evaluated by Dr. Maria Del Rosario Henriquez, Clinical Psychologist , on 01/03/21 with follow-up discussion of evaluation results on 01/25/21. Neuropsychological evaluation revealed minor neurocognitive impairment with deficits in areas of [place] Testing ([place] B), list learning, story recall, visual-spatial abilities, complex visual attention, and non- contextualized verbal learning . She tested at low average/ normal levels in areas of list and figure recall, contextualized verbal learning and recall, and visual recall . Alzheimer's disease in its early stages was unable to be ruled out. The pt c/o WFDs, although none was observed by Dr. Henriquez during evaluation. The pt is (27 yrs) and lives alone. She does not have children but has 2 nephews. She reports memory challenges common to individuals of her age, including WFDs, difficulty tracking dates, forgetting why she came into a room, etc. She has experienced significant decline in social activity since the COVID-19 pandemic. Subjective Others Present Additional Therapist Observations/Patient Presentation Pt arrived on time. No new complaints. Has been compliant with HEP. Chief Complaint(s) Language,Cognitive Patient Knowledge/Awareness of TELEMARKETING SUPERVISOR Role Good in Treatment Patient/Caregiver Compliance with Home Excellent Exercise Program Objective Short Term Goals 1. The pt will establish environmental modifications and routines to support memory and attention skills. 2. The pt will demonstrate understanding of internal memory strategies by recalling short messages/stories and lists of 5 items with 80% accuracy. 3. The pt will demonstrate ability to perform a variety of games to increase neural stimulation and improve memory , attention, and problem solving skills. Cuff Setter Goals 1. The pt will use external memory supports as needed in 80% of opportunities to increase/maintain highest level of independence. 2. The pt will recall functional information WNL, using memory strategies and external supports as needed. 3. The pt will demonstrate compliance with varied HEP tasks increase cognitive challenge and promote wide transference of skills. Treatment Activities Ongoing education and feedback was provided RE use of semantic features strategy for word recall. Targeted instruction on describing properties of items, as the pt stated this was the hardest aspect of the strategy for her . With demonstration and verbal prompts, the pt described physical features including similarities and differences when objects were compared to others. Pt both described and named objects from description through use of Password game. The pt independently followed semantic features cuing sequence, beginning with naming categories of item for increased specificity. No WFDs were observed during structured tasks or spontaneous conversation. Assessment Patient Response to Treatment Excellent Rehab Potential Excellent Impairments Identified Cognitive-Linguistic Skills, Expressive Language,Memory - Short Term,Memory - Working Progress Towards Goals Good Progress Assessment of Overall Progress Improving Assessment of Improvement The pt continues to make good progress toward goals and to implement both external tools and internal strategies successfully in her functional activities. She continues to ask excellent questions and be highly invested in and proactive about rehab. Reviewed with Patient Goals,Progress Being Made,Home Exercise Program Patient/Caregiver Understanding Good Plan Amount of Therapy Recommended 2-3 Months Frequency of Treatment Once a Week Length of Session 45 Minutes Treatment Emphasis Next Session Compensatory strategies for word recall Therapeutic Contents Client Education,Cognitive- Linguistic Training,Home Exercise Program Provided Patient/Caregiver Instruction Home Exercise Program,Plan of Care,Questions/Concerns Therapy Recommendations Continue with Current Program
--- NOTE | 2021-04-10 17:33 | ST.OPTN ---
Visit Care Team Role Provider Type Lin Grady DO Attending Provider Physician Family Provider Primary Care Provider Referring Provider Address: [address] [place] [address], [address], [place], [address] COBBLER APPRENTICE Treatment Note COBBLER APPRENTICE Treatment Note Start: 02/13/21 10:30 Freq: Status: Active Protocol: Document 04/10/21 17:27 RIOS (Rec: 04/10/21 17:31 RIOS [email or web address]) Speech Pathology Treatment Note Session Time Visit Start Time 15:30 Visit Stop Time 16:15 Total Visit Minutes 45 Visit Information Visit Number 04/22 Plan of Care Dates 02/13/21 - 05/16/21 Insurance Information Medicare Setting Treatment Setting Outpatient Care Visit Type Note Type Treatment Note Next Note Type Next Note Type Discharge Summary General Information General Information The pt is an 85-yr-old right- handed female who c/o memory decline over the last year, primarily since fall 2019. She was evaluated by Dr. Maria Del Rosario Henriquez, Clinical Psychologist , on 01/03/21 with follow-up discussion of evaluation results on 01/25/21. Neuropsychological evaluation revealed minor neurocognitive impairment with deficits in areas of Waves Testing (Waves B), list learning, story recall, visual-spatial abilities, complex visual attention, and non- contextualized verbal learning . She tested at low average/ normal levels in areas of list and figure recall, contextualized verbal learning and recall, and visual recall . Alzheimer's disease in its early stages was unable to be ruled out. The pt c/o WFDs, although none was observed by Dr. Henriquez during evaluation. The pt is (27 yrs) and lives alone. She does not have children but has 2 nephews. She reports memory challenges common to individuals of her age, including WFDs, difficulty tracking dates, forgetting why she came into a room, etc. She has experienced significant decline in social activity since the COVID-19 pandemic. Subjective Others Present Additional Therapist Observations/Patient Presentation Pt arrived on time. No new complaints. Has been compliant with HEP. Expressed difficulty remembering names of restaurants and other businesses in her home town. Chief Complaint(s) Language,Cognitive Patient Knowledge/Awareness of COBBLER APPRENTICE Role Good in Treatment Patient/Caregiver Compliance with Home Excellent Exercise Program Objective Short Term Goals 1. The pt will establish environmental modifications and routines to support memory and attention skills. 2. The pt will demonstrate understanding of internal memory strategies by recalling short messages/stories and lists of 5 items with 80% accuracy. 3. The pt will demonstrate ability to perform a variety of games to increase neural stimulation and improve memory , attention, and problem solving skills. Correction Goals 1. The pt will use external memory supports as needed in 80% of opportunities to increase/maintain highest level of independence. 2. The pt will recall functional information WNL, using memory strategies and external supports as needed. 3. The pt will demonstrate compliance with varied HEP tasks increase cognitive challenge and promote wide transference of skills. Treatment Activities Continued training of internal memory skills targeting recall of local businesses. The pt exhibited recall difficulties in naming a business. Upon describing the location and describing the place (semantic features strategy), she recalled the name. The pt generated a list of 9 local businesses and collaborated with COBBLER APPRENTICE to determine associations that would enhance recall. At the end of the session, the pt was able to name 8/9 businesses independently. Assessment Patient Response to Treatment Excellent Rehab Potential Excellent Impairments Identified Cognitive-Linguistic Skills, Expressive Language,Memory - Short Term,Memory - Working Progress Towards Goals Good Progress Assessment of Overall Progress Improving Assessment of Improvement The pt continues to make good progress toward goals and to implement both external tools and internal strategies successfully in her functional activities. She continues to ask excellent questions and be highly invested in and proactive about rehab. Reviewed with Patient Goals,Progress Being Made,Home Exercise Program Patient/Caregiver Understanding Good Plan Frequency of Treatment Once a Week Length of Session 45 Minutes Treatment Emphasis Next Session Review of all strategies & POC . Anticipate D/C at next session Therapeutic Contents Client Education,Cognitive- Linguistic Training,Home Exercise Program Provided Patient/Caregiver Instruction Home Exercise Program,Plan of Care,Questions/Concerns Therapy Recommendations Continue with Current Program
--- NOTE | 2021-04-19 14:32 | ST.OPDS ---
Visit Care Team Role Provider Type Lin Grady DO Attending Provider Physician Family Provider Primary Care Provider Referring Provider Address: [address] [place] [address], [address], [place], [address] TRACK LAYING EQUIPMENT OPERATOR Treatment Note TRACK LAYING EQUIPMENT OPERATOR Treatment Note Start: 02/13/21 10:30 Freq: Status: Active Protocol: Document 04/19/21 17:51 RIOS (Rec: 04/19/21 17:53 RIOS [email or web address]) Speech Pathology Treatment Note Session Time Visit Start Time 13:30 Visit Stop Time 14:15 Total Visit Minutes 45 Visit Information Visit Number 05/23 Plan of Care Dates 02/13/21 - 05/16/21 Insurance Information Medicare Setting Treatment Setting Outpatient Care Visit Type Note Type Discharge Summary General Information General Information The pt is an 85-yr-old right- handed female who c/o memory decline over the last year, primarily since fall 2019. She was evaluated by Dr. Maria Del Rosario Henriquez, Clinical Psychologist , on 01/03/21 with follow-up discussion of evaluation results on 01/25/21. Neuropsychological evaluation revealed minor neurocognitive impairment with deficits in areas of [place] Testing ([place] B), list learning, story recall, visual-spatial abilities, complex visual attention, and non- contextualized verbal learning . She tested at low average/ normal levels in areas of list and figure recall, contextualized verbal learning and recall, and visual recall . Alzheimer's disease in its early stages was unable to be ruled out. The pt c/o WFDs, although none was observed by Dr. Henriquez during evaluation. The pt is (27 yrs) and lives alone. She does not have children but has 2 nephews. She reports memory challenges common to individuals of her age, including WFDs, difficulty tracking dates, forgetting why she came into a room, etc. She has experienced significant decline in social activity since the COVID-19 pandemic. Subjective Others Present Additional Therapist Observations/Patient Presentation Pt arrived on time. No new complaints. Has been compliant with HEP and use of strategies. Chief Complaint(s) Language,Cognitive Patient Knowledge/Awareness of TRACK LAYING EQUIPMENT OPERATOR Role Good in Treatment Patient/Caregiver Compliance with Home Excellent Exercise Program Objective Short Term Goals ALL GOALS MET 1. The pt will establish environmental modifications and routines to support memory and attention skills. 2. The pt will demonstrate understanding of internal memory strategies by recalling short messages/stories and lists of 5 items with 80% accuracy. 3. The pt will demonstrate ability to perform a variety of games to increase neural stimulation and improve memory , attention, and problem solving skills. Senior Care Goals ALL GOALS MET 1. The pt will use external memory supports as needed in 80% of opportunities to increase/maintain highest level of independence. 2. The pt will recall functional information WNL, using memory strategies and external supports as needed. 3. The pt will demonstrate compliance with varied HEP tasks increase cognitive challenge and promote wide transference of skills. Treatment Activities Continued training of internal memory strategies using associations, visualization, and repetition and targeting street name recall. Pt collaborated in making associations between street names on a route within her town. After development of associations and repetition, the pt independently recalled list of [address] across 4 trials. Discussed progress to date and POC. Agreed to discharge at this time. Assessment Patient Response to Treatment Excellent Rehab Potential Excellent Impairments Identified Cognitive-Linguistic Skills, Expressive Language,Memory - Short Term,Memory - Working Progress Towards Goals Good Progress Assessment of Overall Progress Rehabilitated Assessment of Improvement The pt has met all goals of therapy, has demonstrated consistent use of external memory tools and internal memory strategies, and reports improved ability to track functional information and complete tasks with improved recall in ADLs. She is appropriate for discharge at this time. Reviewed with Patient Goals,Progress Being Made,Home Exercise Program Patient/Caregiver Understanding Excellent Plan Frequency of Treatment No Further Therapy Therapeutic Contents Client Education,Cognitive- Linguistic Training,Home Exercise Program Provided Patient/Caregiver Instruction Home Exercise Program,Plan of Care,Questions/Concerns Therapy Recommendations Discharge from Speech Therapy
== END 2021-04-24 08:17 | disposition home or self-care (01) ==
LOC: SP 13:30
PROVIDERS: Family Provider Family Medicine; PCP Family Medicine; Referring Provider Family Medicine; Visit Provider Family Medicine
DX: R41.89 Other symptoms and signs involving cognitive functions and awareness (principal)
CPT/HCPCS: 92507; 96125; 97129; 97130

== ENCOUNTER → 2021-06-02 09:33 | Outpatient (CLI) | payer MEDICARE, OTHER, SELFPAY ==
[2021-06-02 11:36] LABS: COVID19 -Nasal RAPID Negative (Negative)
== END ==
PROVIDERS: Family Provider Family Medicine; PCP Family Medicine; Visit Provider Surgery
DX: Z20.822 Contact with and (suspected) exposure to COVID-19 (principal); Z01.812 Encounter for preprocedural laboratory examination
CPT/HCPCS: 87635; C9803

== ENCOUNTER 2021-06-05 07:24 | Day surgery (SDC) | payer MEDICARE, OTHER, SELFPAY ==
[2021-06-05] VITALS (8 sets, daily range): BP systolic 126–152; BP diastolic 64–119; PULSE 62–67; RESP 11–19; TEMP 36.2–36.7; O2SAT 94–99; BMI 22.4
--- NOTE | 2021-06-05 | PATH_ITS ---
[facility] Accession Number: [id number] . 01 Material submitted: . esophagus, E-G Junction - GE JUNCTION . 02 Diagnosis: GE Junction: Squamocolumnar junctional mucosa with no diagnostic abnormality. Negative for intestinal metaplasia by alcian blue stain. Negative for dysplasia and malignancy. . MRV 06/08/2021 1412 Local . 02 Electronically signed: . Ramonita Mejia MD, Pathologist NPI- [id number] . 01 Gross description: . GE JUNCTION: Received in formalin are multiple fragment(s) of lindsay, soft tissue measuring 2.1 x 0.3 x 0.1 cm in aggregate submitted entirely in 1 cassette(s) /HORTENSIA 06/06/2021 0449 Local . 02 Pathologist provided ICD-10: R13.10 . 02 CPT . 599890, [id number] Performed at: 01 [facility] [address] Suite [facility], [place], [place] [id number] MD Alejo Hopkins MD Phone: [phone] Performed at: [address] [facility] [address] [place], [place] [id number] MD Nupur Alex MD Phone: [phone]
[2021-06-05] MEDS: LACTATED RINGERS 1,000 ML 200 ML IV (08:04)
--- NOTE | 2021-06-05 08:23 | PM.HP.1 ---
History of Present Illness History of Present Illness Date Patient Seen: 06/05/21 Time Patient Seen: 08: Chief complaint: EGD Narrative: 85-year-old woman with history of GERD and new esophageal dysphagia here for diagnostic esophagoduodenoscopy. Please refer to the H& P from April 2021 for further detail. No interval changes in health. Patient History Medical History Actinic keratosis Chronic kidney disease (CKD) stage G3a/A1, moderately decreased glomerular filtration rate (GFR) between 45-59 mL/min/1.73 square meter and albuminuria creatinine ratio less than 30 mg/g Endometriosis GERD (gastroesophageal reflux disease) House dust mite allergy Impaired fasting glucose Migraine headache without aura Mild cognitive impairment Osteoporosis Recurrent sinusitis Rosacea Seasonal allergies Supraspinatus tendon tear Vertebral compression fracture Surgical History Anesthesia History of colonoscopy History of esophagogastroduodenoscopy (EGD) History of sinus surgery Family & Social History Family History Father Cancer Mother Hypertension History of heart disease Brother Cancer Sister Cancer Grandmother Diabetes mellitus Grandmother No problems noted. Social History: household members friend(s) Tobacco & Substance use: Smoking Status Never smoker alcohol intake frequency holiday/special occasion Substance Use Type does not use Meds Home Medications and Allergies Home Medications Medication Instructions Recorded Confirmed Type loteprednol etabonate 0.5 % eye EYE-BOTH ONCE ml 02/02/19 05/04/21 History drops,suspension (Lotemax) ezetimibe 10 mg tablet (Zetia) 10 mg PO Q DAY #90 tab 08/15/20 05/04/21 Rx nadolol 80 mg tablet See Rx Instructions .ROUTE 01/30/21 05/04/21 Rx .COMPLEX #90 tab ergotamine 1 mg-caffeine 100 mg 1 tab PO Q30M #15 tab MDD 3 03/08/21 06/05/21 Rx tablet (Cafergot) fluticasone propionate 50 1 spray NASAL BID #19.2 g 03/29/21 06/05/21 Rx mcg/actuation nasal spray,suspension omeprazole 20 mg capsule,delayed 20 mg PO DAILY #90 cap 03/29/21 05/04/21 Rx release calcium PO 05/04/21 05/04/21 History cholecalciferol (vitamin D3) 10 10 mcg PO DAILY 05/04/21 05/04/21 History mcg (400 unit) capsule coenzyme Q10 100 mg capsule (Co 100 mg PO DAILY 05/04/21 05/04/21 History Q-10) multivitamin (One-A-Day Essential) 1 tab PO DAILY 05/04/21 05/04/21 History Allergies Allergy/AdvReac Type Severity Reaction Status Date / Time dichloralphenazone Allergy Mild unknown Verified 06/05/21 07:46 [From MIDRIN] erythromycin base Allergy Mild rash Verified 06/05/21 07:46 [From E-MYCIN] isometheptene [From MIDRIN] Allergy Mild unknown Verified 06/05/21 07:46 metronidazole [From FLAGYL] Allergy Mild unknown Verified 06/05/21 07:46 nitrofurantoin Allergy Mild rash Verified 06/05/21 07:46 [From MACRODANTIN] Sulfa (Sulfonamide Allergy Mild RASH/FEVER Verified 06/05/21 07:46 Antibiotics) [SULFA (SULFONAMIDE ANTIBIOTICS)] doxycycline Allergy Unknown Verified 06/05/21 07:46 fexofenadine [From Nerga] AdvReac Intermediate worsens Verified 06/05/21 07:46 migraine loratadine [From Claritin] AdvReac Intermediate worsens Verified 06/05/21 07:46 migraine aspirin AdvReac upset Verified 06/05/21 07:46 stomach Review of Systems Review of Systems ROS: Yes All systems reviewed with the patient and are negative except as otherwise documented Exam Vital Signs (past 8 hours): - 06/05/21 08:05 Temperature 97.5 F L Pulse Rate 65 Respiratory Rate 16 Blood Pressure 149/81 H Pulse Oximetry 99 Oxygen Delivery Method Room Air Narrative Exam Narrative: Constitutional-She is oriented to person, place and time. No apparent distress Cardiovascular- regular rate, no peripheral edema Pulmonary-unlabored respiratory effort, no audible wheezing Abdominal-soft, non-tender, non-distended Musculoskeletal-no cyanosis or clubbing Neurological-nonfocal, normal strength throughout, normal gait. Skin-warm and dry Assessment & Plan Assessment and plan (1) Esophageal dysphagia: Status: Acute Assessment & Plan narrative: 85-year-old woman with GERD and new esophageal dysphagia here for diagnostic esophagoduodenoscopy. Procedure again discussed with the patient. Possible dilation and biopsy. Procedural risks discussed again including perioperative complications, bleeding, infection, esophageal perforation. Her questions been answered and she is in agreement with this plan.
[2021-06-05] MEDS: MIDAZOLAM 5 MG/5 ML VIAL IV (08:32)
[2021-06-05] MEDS: LIDOCAINE 4% SOLN 50 ML 20 ML TOP (08:32)
[2021-06-05] MEDS: fentaNYL 250 MCG/5 ML INJ IV (08:32)
--- NOTE | 2021-06-05 08:47 | PM.OP.ENDO ---
Operative Date/Time/Diagnoses Date of procedure: 06/05/21 Time of procedure: 08:47 Pre-op diagnosis: Esophageal dysphagia Post-op diagnosis: other (Esophagitis) Procedure & Clinicians Study performed: Esophagoduodenoscopy Same procedure as scheduled: Yes Indications: Esophageal dysphagia Surgeon: Fei López Procedure Notes Procedure in detail: Patient placed in left lateral decubitus position. Time out was performed. Procedural sedation was administered with Versed and Fentanyl. A bite block was placed. the scope was inserted into the mouth and advanced through the esophagus and into the stomach which was notable for mild gastritis. The pylorus was intubated and the duodenum was normal to the 2nd portion. The scope was retroflexed within the stomach and there was a moderate-size hiatal hernia. The scope was withdrawn into the esophagus the Z line was seen at 40 cm from the incisions. There was no esophageal stricture there was esophagitis without hemorrhage. Biopsies of the GE junction were performed with the biopsy forceps.. Stomach was desufflated and scope removed. Patient tolerated procedure well. Specimen(s): other (GE junction) Complications: none Impression: Esophagitis and gastritis Post-procedure Plan for aftercare: Increase omeprazole to 20 mg twice daily Disposition: same day surgery
--- NOTE | 2021-06-05 08:55 | SUR.PHASEI ---
0897 Pt to PACU with Arelis MANCILLA after conscious sedation. Pt able to open eye to voice and touch. Back to sleep. Reg respirations.
== END 2021-06-05 09:27 | disposition home or self-care (01) ==
PROVIDERS: Family Provider Family Medicine; PCP Family Medicine; Referring Provider Surgery; Visit Provider Surgery
PROC: 0DJ08ZZ Inspection of Upper Intestinal Tract, Via Natural or Artificial Opening Endoscopic (ICD-10-PCS; CPT 43235; principal; 2021-06-05 08:30)
DX: K21.00 Gastro-esophageal reflux disease with esophagitis, without bleeding (principal); N18.31 Chronic kidney disease, stage 3a; K44.9 Diaphragmatic hernia without obstruction or gangrene; K29.70 Gastritis, unspecified, without bleeding
CPT/HCPCS: 43239; J2250; J3010

== ENCOUNTER → 2021-08-02 14:52 | Outpatient (CLI) | payer MEDICARE, OTHER, SELFPAY ==
--- NOTE | 2021-08-02 14:53 | DI.MG.S_ITS ---
BILATERAL DIGITAL SCREENING MAMMOGRAM 3D/2D WITH CAD: 08/02/2021 CLINICAL: Routine screening. Family history of breast cancer. Comparison is made to exams dated: 07/19/2020 mammogram, 07/16/2019 mammogram - [facility], and 08/29/2017 mammogram - [facility]. There are scattered fibroglandular elements in both breasts. Current study was also evaluated with a Computer Aided Detection (CAD) system. There are benign calcifications in both breasts. No significant masses, calcifications, or other findings are seen in either breast. There has been no significant interval change. IMPRESSION: BENIGN There is no mammographic evidence of malignancy. A 1 year screening mammogram is recommended. This exam was interpreted at Station ID: [id number]. NOTE: For mammograms, a report in lay terms will be sent to the patient. Approximately 15% of breast malignancies will not be visualized mammographically. In the management of a palpable breast mass, a negative mammogram must not discourage biopsy of a clinically suspicious lesion. Electronically Signed By: Avila Anne acr/penrad:08/02/2021 16:33:36 letter sent: Normal Exam ACR BI-RADS Category 2: Benign Finding(s) [id number]
== END ==
PROVIDERS: Family Provider Family Medicine; PCP Family Medicine; Referring Provider Family Medicine; Visit Provider Family Medicine
DX: Z12.31 Encounter for screening mammogram for malignant neoplasm of breast (principal); Z80.3 Family history of malignant neoplasm of breast
CPT/HCPCS: 77063; 77067

== ENCOUNTER → 2022-02-20 07:45 | Outpatient (CLI) | payer MEDICARE, OTHER, SELFPAY ==
[2022-02-20 13:48] LABS: Thyroid Stimulating Hormone 1.27 uIU/mL (0.47-4.68)
[2022-02-23 13:17] LABS: Acetylcholine Blocking AB 13 % (0-25); Acetylcholine Receptor Bind AB <0.03 nmol/L (0.00-0.24)
[2022-02-24 22:36] LABS: MuSK Antibodies <1.0 U/mL (.)
== END ==
PROVIDERS: Family Provider Family Medicine; PCP Family Medicine; Referring Provider Ophthalmology; Visit Provider Ophthalmology
DX: H16.201 Unspecified keratoconjunctivitis, right eye (principal)
CPT/HCPCS: 36415; 83519; 84443; 87070; 87205

== ENCOUNTER → 2022-02-26 14:12 | Outpatient (CLI) | payer MEDICARE, OTHER, SELFPAY ==
[2022-02-26 14:45] LABS: Add Manual Diff / Slide Review NO; Basophils Absolute Auto 100 /uL (0-100); Basophils Percent Auto 0.9 % (0-2); Eosinophils Absolute Auto 200 /uL (0-450); Eosinophils Percent Auto 2.7 % (2-4); Hematocrit 42.3 % (36-46); Hemoglobin 14.3 g/dL (12.0-16.0); Lymphocytes Absolute Auto 1700 /uL (1100-4500); Lymphocytes Percent Auto 23.7 % (25-40); Mean Corpuscular HGB Conc 33.9 % (30-36); Mean Corpuscular Hemoglobin 32.1 PG (26-34); Mean Corpuscular Volume 94.5 fL (80-100); Monocytes Absolute Auto 1000 /uL (0-900); Monocytes Percent Auto 13.5 % (3-14); Neutrophils Absolute Auto 4200 /uL (1500-7000); Neutrophils Percent Auto 59.2 % (50-75); Platelet Count 218 X10^3/uL (150-400); Red Blood Cell Count 4.47 X10^6/uL (4.0-5.2); Red Cell Distribution Width 14.2 % (11.6-14.8)
[2022-02-26 15:05] LABS: Erythrocyte Sedimentation Rate 19 MM/HR (0-20)
[2022-02-26 15:13] LABS: Alanine Aminotransferase 19 IU/L (<35); Albumin 3.9 g/dL (3.5-5.0); Albumin Globulin Ratio 1.1 (1.0-2.8); Alkaline Phosphatase 94 U/L (38-126); Aspartate Aminotransferase 27 IU/L (14-36); BUN Creatinine Ratio 55.4 (6-22); Bilirubin Total 0.2 mg/dL (0.2-1.3); Blood Urea Nitrogen 46 mg/dL (7-17); Calcium 9.6 mg/dL (8.4-10.2); Carbon Dioxide 26 mmol/L (22-32); Chloride 106 mmol/L (98-107); Estimated Glomerular Filt Rate > 60 mL/min (>60); Globulin 3.6 g/dL (1.7-4.1); Glucose 114 mg/dL (80-110); HEMOLYSIS < 15 (0-50); Potassium 4.4 mmol/L (3.4-5.1); Sodium 139 mmol/L (137-145); Total Protein 7.5 g/dL (6.3-8.2)
[2022-02-26 15:17] LABS: High Sensitivity CRP - Cardiac 2.6 mg/L (1.0-3.0)
[2022-02-26 15:18] LABS: Rheumatoid Factor < 8.6 IU/mL (<12.0)
[2022-02-27 17:31] LABS: SS A Ro Sjogrens Antibody < 0.2 AI (0.0-0.9); SS B La Sjogrens Antibody < 0.2 AI (0.0-0.9)
[2022-02-28 18:42] LABS: ANA Screen, IFA Positive (.)
== END ==
PROVIDERS: Family Provider Family Medicine; PCP Family Medicine; Referring Provider Ophthalmology; Visit Provider Ophthalmology
DX: M35.00 Sjogren syndrome, unspecified (principal)
CPT/HCPCS: 36415; 80053; 84550; 85025; 85651; 86038; 86140; 86235; 86430

== ENCOUNTER → 2022-03-01 11:50 | Outpatient (CLI) | payer MEDICARE, OTHER, SELFPAY ==
--- NOTE | 2022-03-01 11:54 | DI.CT.S_ITS ---
PROCEDURE: CT HEAD/BRAIN WO CON INDICATIONS: Ocular pain, right eye Other acute sinusitis TECHNIQUE: Noncontrast 4.5 mm thick angled axial sections acquired from the foramen magnum to the vertex, with coronal and sagittal reformats. For radiation dose reduction, the following was used: automated exposure control, adjustment of mA and/or kV according to patient size. COMPARISON: [facility], CT, SINUS W/O CONTRAST, 02/01/2012, 14:17. FINDINGS: Image quality: Excellent. CSF spaces: Basal cisterns are patent. No extra-axial fluid collections. The ventricles are symmetric in size and shape. Brain: No intracranial bleeds or masses. Possible 9 millimeter aneurysm involving the terminal right internal carotid artery. There is cerebral volume loss for age, with resultant ventricular and sulcal prominence. There are periventricular and deep white matter chronic small vessel ischemic changes. There is intracranial internal carotid artery atherosclerosis. Skull and face: Calvarium and visualized facial bones appear intact, without suspicious lesions. Sinuses: Visualized sinuses and mastoids are clear. Postsurgical changes compatible functional endoscopic sinus surgery. IMPRESSION: 1. No acute intracranial disease process. 2. 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 Recommend CT angiogram of the head for additional evaluation. Findings discussed with Dr. Moses who was covering for the ordering physician Dr. Arellano on March 01, 2022 at 2:59 p.m.. Dictated by: Janneth Bardales MD, PhD on 03/01/2022 at 14:53 Approved by: Janneth Bardales MD, PhD on 03/01/2022 at 15:00
--- NOTE | 2022-03-01 11:55 | DI.CT.S_ITS ---
PROCEDURE: CT SINUS SCREEN WO CON INDICATIONS: Ocular pain, right eye Other acute sinusitis TECHNIQUE: Noncontrast 3.0 mm axial images acquired from the frontal sinuses to the mid-sella, with coronal and sagittal reformats. For radiation dose reduction, the following was used: automated exposure control, adjustment of mA and/or kV according to patient size. COMPARISON: None. FINDINGS: Image quality: Excellent. Postsurgical changes compatible with prior functional endoscopic sinus surgery. 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 Jupf-ys-tqyohgzv mucosal thickening noted in the maxillary sinuses. Nasal septum is midline. Diffuse osseous thickening noted in the maxillary sinus mcgee. No osseous remodeling or osseous erosive changes. Possible 9-10 millimeter cerebral aneurysm involving the terminal right internal carotid artery. IMPRESSION: 1. Prior functional Skopic sinus surgery. 2. Ighe-qy-qndgtluw chronic bilateral maxillary sinusitis. 3. 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 Findings of cerebral aneurysm discussed with Dr. Moses (please see dedicated CT scan of the head). Dictated by: Janneth Bardales MD, PhD on 03/01/2022 at 15:39 Approved by: Janneth Bardales MD, PhD on 03/01/2022 at 15:42
== END ==
PROVIDERS: Family Provider Family Medicine; PCP Family Medicine; Referring Provider Ophthalmology; Visit Provider Ophthalmology
DX: H57.11 Ocular pain, right eye (principal); J01.80 Other acute sinusitis; J32.0 Chronic maxillary sinusitis
CPT/HCPCS: 70450; 70486

== ENCOUNTER 2022-03-01 15:50 | Emergency (ER) | payer MEDICARE, OTHER, SELFPAY ==
[2022-03-01] VITALS (16 sets, daily range): BP systolic 134–204; BP diastolic 63–110; PULSE 69–92; RESP 16; TEMP 36.6; O2SAT 94–99; BMI 21.2
[2022-03-01 19:03] LABS: INR 1.1 (0.9-1.3); Prothrombin Time 11.9 SECONDS (10.1-12.7)
[2022-03-01 19:06] LABS: Add Manual Diff / Slide Review NO; Basophils Absolute Auto 100 /uL (0-100); Eosinophils Absolute Auto 100 /uL (0-450); Eosinophils Percent Auto 2.1 % (2-4); Hematocrit 42.4 % (36-46); Hemoglobin 14.4 g/dL (12.0-16.0); Lymphocytes Absolute Auto 1700 /uL (1100-4500); Lymphocytes Percent Auto 24.2 % (25-40); Mean Corpuscular Hemoglobin 32.3 PG (26-34); Mean Corpuscular Volume 94.8 fL (80-100); Monocytes Absolute Auto 800 /uL (0-900); Monocytes Percent Auto 12.3 % (3-14); Neutrophils Absolute Auto 4100 /uL (1500-7000); Neutrophils Percent Auto 60.4 % (50-75); PTT Partial Thromboplastin Tim 34 SECONDS (26.4-36.2); Platelet Count 225 X10^3/uL (150-400); Red Blood Cell Count 4.48 X10^6/uL (4.0-5.2); White Blood Cell Count 6.8 X10^3/uL (4.5-11.0)
[2022-03-01 19:07] LABS: BUN Creatinine Ratio 45.2 (6-22); Blood Urea Nitrogen 38 mg/dL (7-17); Calcium 9.7 mg/dL (8.4-10.2); Carbon Dioxide 30 mmol/L (22-32); Chloride 103 mmol/L (98-107); Estimated Glomerular Filt Rate > 60 mL/min (>60); Glucose 119 mg/dL (80-110); HEMOLYSIS < 15 (0-50); Potassium 4.4 mmol/L (3.4-5.1); Sodium 138 mmol/L (137-145)
[2022-03-01 19:20] LABS: COVID19 -Nasal RAPID Negative (Negative)
--- NOTE | 2022-03-01 19:31 | DI.CT.S_ITS ---
PROCEDURE: CT ANGIO HEAD AND NECK INDICATIONS: 9mm terminal right internal carotid artery TECHNIQUE: After the administration of intravenous contrast, 1 mm thick sections acquired from the aortic arch through the [place] of [place]. Post-contrast 4.5 mm thick sections then re-acquired from the foramen magnum to the vertex. 3-dimensional louefbx-hhsjhupfh-ymdqyqdjpi (MIP) and/or volume rendering reformats were acquired of the central intracranial vasculature and neck separately. For radiation dose reduction, the following was used: automated exposure control, adjustment of mA and/or kV according to patient size. COMPARISON: [facility], CT, CT HEAD/BRAIN WO CON, 03/01/2022, 12:08. FINDINGS: Image quality: Excellent. BRAIN: CSF spaces: Basal cisterns are patent. No extra-axial fluid collections. Ventricles are normal in size and shape. Brain: No intracranial hemorrhage, mass, or mass effect. Angela-white matter interface appears preserved. There are few subcortical and periventricular white matter hypodensities consistent with mild chronic small vessel ischemic changes. No abnormal intracranial enhancement. Skull and face: Calvarium and facial bones appear intact, without suspicious lesions. Orbits appear normal. Sinuses: There is evidence of prior sinus surgery. Mild mucosal thickening demonstrated within the ethmoid, maxillary, and sphenoid sinuses with small air-fluid levels in the maxillary and sphenoid sinuses suggestive of mild acute sinusitis. Mastoid air cells are clear. HEAD CT ANGIOGRAPHY: Anterior circulation: Intracranial internal carotid arteries appear patent bilaterally. There is mild atherosclerotic calcification along the cavernous segments of the internal carotid arteries. There is a saccular aneurysm arising superiorly from the supraclinoid ophthalmic segment of the right internal carotid artery approximately 0.2 cm distal to the ophthalmic artery. This measures up to 1.0 x 0.9 x 0.8 cm in dimension and the aneurysm neck measures up to 0.6 x 0.5 cm in dimension. This demonstrates mass effect on the right aspect of the optic chiasm. The paired anterior cerebral arteries appear patent bilaterally. The anterior communicating artery also appears patent. The middle cerebral arteries appear patent bilaterally. No high-grade stenosis, occlusion, or filling defects. Posterior circulation: The visualized portions of the vertebral arteries demonstrate a left dominant vertebrobasilar system . The vertebral arteries join to form a patent basilar artery. The posterior cerebral arteries appears patent bilaterally. No high-grade stenosis, occlusion, or filling defects. No cerebral aneurysms identified in the posterior circulation. NECK CT ANGIOGRAPHY: Carotid system: The great vessels demonstrate a conventional anatomy as they arise from the aortic arch. The origins of the common carotid arteries appear patent. The common carotid arteries demonstrate normal caliber and courses. The bifurcation regions are both widely patent. The internal carotid arteries demonstrate normal calibers and courses. Posterior circulation: The origins of the vertebral arteries both appear patent. The more superior extracranial portions of both vertebral arteries also demonstrate normal courses and calibers. They join to form a patent basilar artery. Soft tissues: Visualized neck soft tissues demonstrate multiple small hypoattenuating nodules within the thyroid bilaterally, measuring up to 0.6 cm in the left lobe. There is scarring within the visualized lung apices. Bones: No suspicious bony lesions. Visualized cervical spine demonstrates mild to moderate multilevel degenerative disc disease in the mid and lower cervical spine. There is also moderate multilevel facet arthropathy.. IMPRESSION: 1. 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 There is associated mass effect on the right aspect of the optic chiasm. 2. No definite evidence of intracranial hemorrhage on the recent CT or evidence of hematoma collections on the current study. 3. No high-grade stenosis or occlusion of the central intracranial arteries or head and neck arteries. Any quantitative measurements of stenosis were performed using NASCET criteria. Dictated by: Alejo Jenkins M.D. on 03/01/2022 at 20:06 Approved by: Alejo Jenkins M.D. on 03/01/2022 at 20:24
--- NOTE | 2022-03-01 19:31 | ED.HA ---
HPI - Headache General Chief Complaint: Headache Stated Complaint: sent for anneurysm rt eye Time Seen by Provider: 03/01/22 17:55 Mode of arrival: Ambulatory History of Present Illness HPI Narrative: 86-year-old woman with history of hypertension, migraine headaches, hyperlipidemia and reflux disease was seen by ophthalmology for headache and CT of the sinuses and head were ordered. 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 She notes that over the last number of weeks she has been having increasing migraine headaches, migraine headaches have been a lifelong problem for her. She describes him as affecting both eyes and going from side to side. She typically uses ergotamine. 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 She has had chronic sinus problems was recently on prednisone eyedrops for irritation in the right eye and is continuing to take Sudafed most recent dose around noon today. She does not note acute visual changes, she has not noticed any cognitive dysfunction, no dysarthria or word-finding difficulties, no weakness or paresthesias otherwise. Comes to the emergency room for further evaluation. CT scans ordered by the [employer] truck driver do show [id number] chronic bilateral maxillary sinusitis and the internal carotid aneurysm as described above. Related Data Home Medications Medication Instructions Recorded Confirmed loteprednol etabonate 0.5 % eye EYE-BOTH ONCE ml 02/02/19 01/15/22 drops,suspension (Lotemax) calcium PO 05/04/21 01/15/22 cholecalciferol (vitamin D3) 10 10 mcg PO DAILY 05/04/21 01/15/22 mcg (400 unit) capsule coenzyme Q10 100 mg capsule (Co 100 mg PO DAILY 05/04/21 01/15/22 Q-10) multivitamin (One-A-Day Essential) 1 tab PO DAILY 05/04/21 01/15/22 Previous Rx's Medication Instructions Recorded ezetimibe 10 mg tablet (Zetia) 10 mg PO Q DAY #90 tab 08/10/21 fluticasone propionate 50 1 spray NASAL BID #19.2 g 09/14/21 mcg/actuation nasal spray,suspension omeprazole 20 mg capsule,delayed 20 mg PO BID #180 cap 12/21/21 release nadolol 80 mg tablet See Rx Instructions .ROUTE 01/25/22 .COMPLEX #90 tab ergotamine 1 mg-caffeine 100 mg 1 tab PO Q30M #15 tab MDD 3 01/30/22 tablet Allergies Allergy/AdvReac Type Severity Reaction Status Date / Time dichloralphenazone Allergy Mild unknown Verified 03/01/22 16:09 [From MIDRIN] erythromycin base Allergy Mild rash Verified 03/01/22 16:09 [From E-MYCIN] isometheptene [From MIDRIN] Allergy Mild unknown Verified 03/01/22 16:09 metronidazole [From FLAGYL] Allergy Mild unknown Verified 03/01/22 16:09 nitrofurantoin Allergy Mild rash Verified 03/01/22 16:09 [From MACRODANTIN] Sulfa (Sulfonamide Allergy Mild RASH/FEVER Verified 03/01/22 16:09 Antibiotics) [SULFA (SULFONAMIDE ANTIBIOTICS)] doxycycline Allergy Unknown Verified 03/01/22 16:09 fexofenadine [From Negra] AdvReac Intermediate worsens Verified 03/01/22 16:09 migraine loratadine [From Claritin] AdvReac Intermediate worsens Verified 03/01/22 16:09 migraine aspirin AdvReac upset Verified 03/01/22 16:09 stomach Review of Systems Review of Systems Narrative: Remainder of complete review of systems is otherwise unremarkable except for that included in the HPI. Patient History Medical History Actinic keratosis Chronic kidney disease (CKD) stage G3a/A1, moderately decreased glomerular filtration rate (GFR) between 45-59 mL/min/1.73 square meter and albuminuria creatinine ratio less than 30 mg/g Endometriosis GERD (gastroesophageal reflux disease) Hip fracture (~11/07/21) House dust mite allergy Impaired fasting glucose Lactose intolerance Migraine headache without aura Mild cognitive impairment Osteoporosis Recurrent sinusitis Rosacea Seasonal allergies Supraspinatus tendon tear Vertebral compression fracture Surgical History Anesthesia History of colonoscopy History of esophagogastroduodenoscopy (EGD) History of sinus surgery Family History Father Cancer Mother Hypertension History of heart disease Brother Cancer Sister Cancer Grandmother Diabetes mellitus Grandmother No problems noted. Social History household members: friend(s) Smoking Status: Never smoker Smoking Status: Never smoker alcohol intake frequency: holidays/special occasions only Substance Use Type: does not use Exam Initial Vital Signs Initial Vital Signs: Vital Signs Temperature 97.9 F 03/01/22 16:05 Pulse Rate 81 03/01/22 16:05 Respiratory Rate 16 03/01/22 16:05 Blood Pressure 185/88 H 03/01/22 16:05 Pulse Oximetry 97 03/01/22 16:05 General: Healthy appearing, in no acute distress. Able to give a complete and coherent history. Well-nourished well-developed HEENT: Moist mucous membranes, normal sclera with reactive pupils, mild scleral injection to the right eye. Extraocular eye movement is intact. Neck: No JVD, supple, no carotid bruits are appreciated Respiratory: Lungs are clear to auscultation, no wheezing no rales no rhonchi. Full and symmetrical air movement Cardiac: Regular rate and rhythm no murmurs no bruits Abdomen: Soft, nontender, good bowel tones, no flank pain Skin: Warm and dry, no rashes Neurologic: Grossly neurologically intact with no obvious asymmetries or abnormalities, no visual acuity changes, NIH score is 0 Extremities: No trauma, well perfused Psych: Cooperative, appropriate insight and affect Course Orders Ordered: ED Orders 03/01/22 18:30 BMP [Basic Metabolic Panel] Stat CBC Auto Diff [Complete Blood Count AUTO DIFF] Stat COVID19 -Nasal RAPID/Pre-Proc Stat PTT [Partial Thromboplastin Time] Stat Prothrombin Time INR Stat 03/01/22 19:31 CT angio head and neck Stat Discontinued Medications Dexamethasone (Dexamethasone 10 Mg/Ml Vial) 10 mg IV NOW ONE Stop: 03/01/22 19:45 Last Admin: 03/01/22 20:21 Dose: 10 mg Documented by: SONIA Metoclopramide HCl (Metoclopramide 10 Mg/2 Ml Inj) 10 mg IV NOW ONE Stop: 03/01/22 19:45 Last Admin: 03/01/22 20:21 Dose: 10 mg Documented by: SONIA Vital Signs Vital signs: Vital Signs - 8 hr 03/01/22 18:39 03/01/22 18:40 03/01/22 19:00 Pulse Rate 69 69 70 Blood Pressure 176/79 H 167/110 H Pulse Oximetry 98 98 99 03/01/22 19:06 03/01/22 19:30 03/01/22 20:02 Pulse Rate 75 80 83 Blood Pressure 204/98 H 171/90 H Pulse Oximetry 97 99 94 03/01/22 20:30 03/01/22 21:00 03/01/22 21:30 Pulse Rate 79 78 92 H Blood Pressure 149/68 H 142/73 H Pulse Oximetry 99 97 97 03/01/22 21:31 03/01/22 22:00 03/01/22 22:30 Pulse Rate 85 76 75 Blood Pressure 202/88 H 144/67 H 134/63 Pulse Oximetry 96 94 94 03/01/22 23:00 03/01/22 23:49 03/01/22 23:51 Pulse Rate 78 84 82 Blood Pressure 178/84 H Pulse Oximetry 95 97 96 03/02/22 00:00 03/02/22 00:30 03/02/22 01:00 Pulse Rate 77 73 76 Blood Pressure Pulse Oximetry 94 94 94 MDM - Headache Lab Data Result diagrams: 03/01/22 18:30 03/01/22 18:30 Labs: Lab Results 03/01/22 03/01/22 03/01/22 Range/Units 18:30 18:30 18:30 WBC 6.8 (4.5-11.0) X10^3/uL RBC 4.48 (4.0-5.2) X10^6/uL Hgb 14.4 (12.0-16.0) g/dL Hct 42.4 (36-46) % MCV 94.8 (80-100) fL MCH 32.3 (26-34) PG MCHC 34.0 (30-36) % RDW 14.0 (11.6-14.8) % Plt Count 225 (150-400) X10^3/uL Neut % (Auto) 60.4 (50-75) % Lymph % (Auto) 24.2 L (25-40) % [place] % (Auto) 12.3 (3-14) % Eos % (Auto) 2.1 (2-4) % Baso % (Auto) 1.0 (0-2) % Neut # (Auto) 4100 (6938-3747) /uL Lymph # (Auto) 1700 (8444-2437) /uL [place] # (Auto) 800 (0-900) /uL Eos # (Auto) 100 (0-450) /uL Baso # (Auto) 100 (0-100) /uL PT 11.9 (10.1-12.7) SECONDS INR 1.1 (0.9-1.3) APTT 34 (26.4-36.2) SECONDS Sodium 138 (137-145) mmol/L Potassium 4.4 (3.4-5.1) mmol/L Chloride 103 (98-107) mmol/L Carbon Dioxide 30 (22-32) mmol/L BUN 38 H (7-17) mg/dL Creatinine 0.84 (0.52-1.04) mg/dL Estimated GFR > 60 (>60) mL/min BUN/Creatinine Ratio 45.2 H (6-22) Glucose 119 H (80-110) mg/dL Calcium 9.7 (8.4-10.2) mg/dL SARS-CoV-2 (PCR) (Negative) 03/01/22 Range/Units 18:30 WBC (4.5-11.0) X10^3/uL RBC (4.0-5.2) X10^6/uL Hgb (12.0-16.0) g/dL Hct (36-46) % MCV (80-100) fL MCH (26-34) PG MCHC (30-36) % RDW (11.6-14.8) % Plt Count (150-400) X10^3/uL Neut % (Auto) (50-75) % Lymph % (Auto) (25-40) % [place] % (Auto) (3-14) % Eos % (Auto) (2-4) % Baso % (Auto) (0-2) % Neut # (Auto) (7595-7591) /uL Lymph # (Auto) (7644-1289) /uL Seneca # (Auto) (0-900) /uL Eos # (Auto) (0-450) /uL Baso # (Auto) (0-100) /uL PT (10.1-12.7) SECONDS INR (0.9-1.3) APTT (26.4-36.2) SECONDS Sodium (137-145) mmol/L Potassium (3.4-5.1) mmol/L Chloride (98-107) mmol/L Carbon Dioxide (22-32) mmol/L BUN (7-17) mg/dL Creatinine (0.52-1.04) mg/dL Estimated GFR (>60) mL/min BUN/Creatinine Ratio (6-22) Glucose (80-110) mg/dL Calcium (8.4-10.2) mg/dL SARS-CoV-2 (PCR) Negative (Negative) Imaging Data CT scan - head: Radiologist's Impression: FINDINGS:? Image quality:? Excellent.? ? CSF spaces:? Basal cisterns are patent.? No extra-axial fluid collections.? The ventricles are symmetric in size and shape.? ? Brain:? No intracranial bleeds or masses.? Possible 9 millimeter aneurysm involving the terminal right internal carotid artery.? There is cerebral volume loss for age, with resultant ventricular and sulcal prominence.? There are periventricular and deep white matter chronic small vessel ischemic changes.? There is intracranial internal carotid artery atherosclerosis.? ? Skull and face:? Calvarium and visualized facial bones appear intact, without suspicious lesions.? ? Sinuses:? Visualized sinuses and mastoids are clear.? Postsurgical changes compatible functional endoscopic sinus surgery.? ? IMPRESSION:? ? 1. No acute intracranial disease process. ? 2. 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 Recommend CT angiogram of the head for additional evaluation. ? Findings discussed with Dr. Moses who was covering for the ordering physician Dr. Arellano on March 01, 2022 at 2:59 p.m..? ? ? Dictated by: Janneth Bardales MD, PhD on 03/01/2022 at 14:53? ?? sinus Ct: Radiologist's Impression: FINDINGS:? Image quality:? Excellent.? ? Postsurgical changes compatible with prior functional endoscopic sinus surgery.? 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 Rcjv-bl-zlcinvjo mucosal thickening noted in the maxillary sinuses.? Nasal septum is midline.? Diffuse osseous thickening noted in the maxillary sinus mcgee.? No osseous remodeling or osseous erosive changes.? Possible 9-10 millimeter cerebral aneurysm involving the terminal right internal carotid artery. ? ? IMPRESSION:? ? 1. Prior functional Skopic sinus surgery.? ? 2. [id number]-[id number] chronic bilateral maxillary sinusitis. ? 3. 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 ? Findings of cerebral aneurysm discussed with Dr. Moses (please see dedicated CT scan of the head).? Dictated by: Janneth Bardales MD, PhD on 03/01/2022 at 15:39? ?? CT angio head/brain: Radiologist's Impression: FINDINGS:? Image quality:? Excellent.? ? BRAIN:? CSF spaces:? Basal cisterns are patent.? No extra-axial fluid collections.? Ventricles are normal in size and shape.? ? Brain:? No intracranial hemorrhage, mass, or mass effect.? Angela-white matter interface appears preserved.? There are few subcortical and periventricular white matter hypodensities consistent with mild chronic small vessel ischemic changes.? No abnormal intracranial enhancement.? ? Skull and face:? Calvarium and facial bones appear intact, without suspicious lesions.? Orbits appear normal.? ? Sinuses:? There is evidence of prior sinus surgery.? Mild mucosal thickening demonstrated within the ethmoid, maxillary, and sphenoid sinuses with small air-fluid levels in the maxillary and sphenoid sinuses suggestive of mild acute sinusitis.? Mastoid air cells are clear. ? HEAD CT ANGIOGRAPHY:? Anterior circulation:? Intracranial internal carotid arteries appear patent bilaterally.? There is mild atherosclerotic calcification along the cavernous segments of the internal carotid arteries.? There is a saccular aneurysm arising superiorly from the supraclinoid ophthalmic segment of the right internal carotid artery approximately 0.2 cm distal to the ophthalmic artery.? This measures up to 1.0 x 0.9 x 0.8 cm in dimension and the aneurysm neck measures up to 0.6 x 0.5 cm in dimension.? This demonstrates mass effect on the right aspect of the optic chiasm.? ? The paired anterior cerebral arteries appear patent bilaterally.? The anterior communicating artery also appears patent. The middle cerebral arteries appear patent bilaterally.? No high-grade stenosis, occlusion, or filling defects.? ? Posterior circulation:? The visualized portions of the vertebral arteries demonstrate a left dominant vertebrobasilar system .? The vertebral arteries join to form a patent basilar artery.? The posterior cerebral arteries appears patent bilaterally.? No high-grade stenosis, occlusion, or filling defects.? No cerebral aneurysms identified in the posterior circulation. ? NECK CT ANGIOGRAPHY:? Carotid system:? The great vessels demonstrate a conventional anatomy as they arise from the aortic arch.? The origins of the common carotid arteries appear patent.? The common carotid arteries demonstrate normal caliber and courses.? The bifurcation regions are both widely patent.? The internal carotid arteries demonstrate normal calibers and courses.? ? Posterior circulation:? The origins of the vertebral arteries both appear patent.? The more superior extracranial portions of both vertebral arteries also demonstrate normal courses and calibers.? They join to form a patent basilar artery.? ? Soft tissues:? Visualized neck soft tissues demonstrate multiple small hypoattenuating nodules within the thyroid bilaterally, measuring up to 0.6 cm in the left lobe.? There is scarring within the visualized lung apices. ? Bones:? No suspicious bony lesions.? Visualized cervical spine demonstrates mild to moderate multilevel degenerative disc disease in the mid and lower cervical spine.? There is also moderate multilevel facet arthropathy..? ? IMPRESSION:? ? 1. 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 There is associated mass effect on the right aspect of the optic chiasm. ? 2. No definite evidence of intracranial hemorrhage on the recent CT or evidence of hematoma collections on the current study. ? 3. No high-grade stenosis or occlusion of the central intracranial arteries or head and neck arteries.? ? Any quantitative measurements of stenosis were performed using NASCET criteria.? ? ? Dictated by: Alejo Jenkins M.D. on 03/01/2022 at 20:06? ?? [facility] Narrative Medical decision making narrative: 86-year-old woman with chronic migraines intermittent eye abnormalities incidental aneurysm appreciated on CT scan ordered by Ophthalmology. 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 There is associated mass effect on the right aspect of the optic chiasm. With her main complaint tonight being eye pain, CT findings will be reviewed with neurosurgery. Images have been pushed to [facility]. Pain since headache has resolved nicely and she is not currently complaining of ophthalmic abnormalities 115am extensive difficulty in getting of a neurosurgeon to see if her aneurysm needs urgent follow-up or outpatient care. [facility] currently has no beds and their neurosurgeons are not talking to outside providers for new patients. We have contacted [facility] and have had over a 43 minute wait with no on answering the phone. Will try the [facility] group directly. 1:30 am [facility] message left with clincial details Neurosurgeon at [facility] has suggested contacting neurovascular surgery at [facility]. Images are pushed and phone call to transfer center is made. 2:[address] care [address] Dr Aguillon, neurosurgeon. He suggested that she did need urgent outpatient follow-up but does not need further hospitalization or urgent inpatient transfer. Her name and contact information are given to him in his office will contact her tomorrow by phone and set up an appointment for early next week for consultation and discussion of treatment for her aneurysm. She is safe for home discharge Discharge Plan Departure Patient Disposition: Home Clinical Impression: Aneurysm, carotid artery, internal, Chronic sinusitis of both maxillary sinuses Instructions: DI for Brain Aneurysm Activity Restrictions/Additional Instructions: Thank you for coming in today I know it is been along day for you and it took a long time to get to the correct answers but I think we have a good plan in place at this point. You do have an aneurysm behind your right eye. It likely will need to be fixed but you do not need to be admitted to the hospital this evening or transferred to a facility where this can be done emergently. I spoke with Dr. Aguillon, your surgeon with [facility] in [place]. His office will contact you tomorrow to schedule urgent appointment with him early next week for full consultation and discussion of treatment from that point forward. If you have worsening eye pain, visual changes or developed severe headache beyond your usual baseline sinus or migraine headache please make sure you turn to the emergency department. I wish you the best Prescriptions: No Action ezetimibe [Zetia] 10 mg tablet 10 mg PO Q DAY Qty: 90 3RF fluticasone propionate 50 mcg/actuation spray,suspension 1 spray NASAL BID Qty: 19.2 3RF omeprazole 20 mg capsule,delayed release(DR/EC) 20 mg PO BID Qty: 180 0RF nadolol 80 mg tablet See Rx Instructions .ROUTE .COMPLEX Qty: 90 0RF Dose Instruction: TAKE 1 TABLET DAILY Rx Instructions: TAKE 1 TABLET DAILY ergotamine-caffeine 1-100 mg tablet 1 tab PO Q30M MDD 3 Qty: 15 0RF Rx Instructions: do not exceed 3 mg per day or 5 mg per wk Lotemax 0.5 % drops,suspension EYE-BOTH ONCE 0RF cholecalciferol (vitamin D3) 10 mcg (400 unit) capsule 10 mcg PO DAILY 0RF multivitamin [One-A-Day Essential] Tablet 1 tab PO DAILY 0RF coenzyme Q10 [Co Q-10] 100 mg capsule 100 mg PO DAILY 0RF calcium PO 0RF Referrals: Ginny Arellano MD [Physician] - Marlin Godwin MD [Primary Care Provider] -
[2022-03-01] MEDS: METOCLOPRAMIDE 10 MG/2 ML INJ IV (20:21)
[2022-03-01] MEDS: DEXAMETHASONE 10 MG/ML VIAL IV (20:21)
[2022-03-02] VITALS (7 sets, daily range): BP systolic 135; BP diastolic 73; PULSE 73–84; O2SAT 92–95
== END 2022-03-02 03:00 | disposition home or self-care (01) ==
PROVIDERS: Emergency Medicine; Emergency Provider Emergency Medicine; Family Provider Family Medicine; PCP Family Medicine
DX: I67.1 Cerebral aneurysm, nonruptured (principal); J32.0 Chronic maxillary sinusitis; Z20.822 Contact with and (suspected) exposure to COVID-19; H57.11 Ocular pain, right eye; J01.80 Other acute sinusitis
CPT/HCPCS: 36415; 70450; 70486; 70496; 70498; 80048; 85025; 85610; 85730; 87635; 96374; 96375; 99284; C9803; J1100; J2765; Q9967

== ENCOUNTER → 2022-03-09 09:22 | Outpatient (CLI) | payer MEDICARE, OTHER, SELFPAY ==
[2022-03-09 11:22] LABS: Erythrocyte Sedimentation Rate 16 MM/HR (0-20)
== END ==
PROVIDERS: Family Provider Family Medicine; PCP Family Medicine
DX: I67.1 Cerebral aneurysm, nonruptured (principal)
CPT/HCPCS: 36415; 85651

== ENCOUNTER → 2022-04-03 07:51 | Outpatient (CLI) | payer MEDICARE, OTHER, SELFPAY ==
--- NOTE | 2022-04-03 07:54 | DI.RAD.S_ITS ---
PROCEDURE: XR CHEST 2V INDICATIONS: Preoperative risk assessment and clearance TECHNIQUE: 2 views of the chest were acquired. COMPARISON: None. FINDINGS: Surgical changes and devices: None. Lungs and pleura: Lungs are clear. No pleural effusions or pneumothorax. Mediastinum: Mediastinal contours are normal. Heart size is normal. Bones and chest wall: Remote right posterolateral rib fractures. Remote midthoracic wedge compression deformity. No suspicious bony abnormalities. Soft tissues appear unremarkable. IMPRESSION: No acute cardiopulmonary process demonstrated radiographically. Dictated by: Ryan Carmona M.D. on 04/03/2022 at 9:05 Approved by: Ryan Carmona M.D. on 04/03/2022 at 9:06
[2022-04-03 09:21] LABS: Add Manual Diff / Slide Review NO; Basophils Absolute Auto 100 /uL (0-100); Basophils Percent Auto 1.8 % (0-2); Eosinophils Absolute Auto 200 /uL (0-450); Eosinophils Percent Auto 3.5 % (2-4); Hematocrit 43.8 % (36-46); Hemoglobin 14.6 g/dL (12.0-16.0); Lymphocytes Absolute Auto 1600 /uL (1100-4500); Lymphocytes Percent Auto 31.6 % (25-40); Mean Corpuscular HGB Conc 33.3 % (30-36); Mean Corpuscular Hemoglobin 32.3 PG (26-34); Mean Corpuscular Volume 96.8 fL (80-100); Monocytes Absolute Auto 600 /uL (0-900); Monocytes Percent Auto 12.4 % (3-14); Neutrophils Absolute Auto 2600 /uL (1500-7000); Neutrophils Percent Auto 50.7 % (50-75); Platelet Count 192 X10^3/uL (150-400); Red Blood Cell Count 4.53 X10^6/uL (4.0-5.2); White Blood Cell Count 5.1 X10^3/uL (4.5-11.0)
[2022-04-03 09:27] LABS: Appearance Urine UA CLEAR; Bilirubin Urine UA NEGATIVE (NEGATIVE); Color Urine UA YELLOW; Glucose Urine UA NEGATIVE (Negative); Ketones Urine UA NEGATIVE (NEGATIVE); Leukocyte Esterase Urine UA NEGATIVE (NEGATIVE); Nitrite Urine UA NEGATIVE (Negative); Occult Blood Urine UA TRACE-INTACT (Negative); Protein Urine UA NEGATIVE (Negative); Specific Gravity Urine UA 1.015 (1.000-1.035); Urobilinogen Urine UA 0.2 E.U./dL (0.2)
[2022-04-03 09:30] LABS: Prothrombin Time 10.8 SECONDS (10.1-12.7)
[2022-04-03 09:32] LABS: Hemoglobin A1C% w Est Avg Glu 6.3 % (4.0-6.0)
[2022-04-03 09:33] LABS: Amorphous Sediment Urine 2+; Bacteria Urine None Seen; Culture Indicated Urine Cult Not Indicated; RBC Urine 1-5/HPF (0-5/HPF); WBC Urine None Seen (0-5/HPF)
[2022-04-03 09:56] LABS: Blood Urea Nitrogen 32 mg/dL (7-17); Calcium 8.9 mg/dL (8.4-10.2); Carbon Dioxide 29 mmol/L (22-32); Chloride 103 mmol/L (98-107); Estimated Glomerular Filt Rate 59 mL/min (>60); Glucose 110 mg/dL (80-110); HEMOLYSIS < 15 (0-50); Potassium 4.3 mmol/L (3.4-5.1); Sodium 141 mmol/L (137-145)
== END ==
PROVIDERS: Family Provider Family Medicine; PCP Pediatrics; Referring Provider Pediatrics; Visit Provider Pediatrics
DX: E78.2 Mixed hyperlipidemia (principal); I71.9 Aortic aneurysm of unspecified site, without rupture; N18.31 Chronic kidney disease, stage 3a; R76.8 Other specified abnormal immunological findings in serum; Z01.810 Encounter for preprocedural cardiovascular examination; Z01.812 Encounter for preprocedural laboratory examination
CPT/HCPCS: 36415; 71046; 80048; 81001; 82040; 83036; 85025; 85610

== ENCOUNTER → 2022-04-06 14:02 | Outpatient (CLI) | payer MEDICARE, OTHER, SELFPAY | PROVIDERS: Family Provider Family Medicine; PCP Pediatrics; Visit Provider Pediatrics | DX: Z01.812 Encounter for preprocedural laboratory examination (principal) | CPT/HCPCS: 87797 ==

== ENCOUNTER → 2022-04-10 09:51 | Outpatient (CLI) | payer MEDICARE, OTHER, SELFPAY | PROVIDERS: Family Provider Family Medicine; PCP Pediatrics; Referring Provider Pediatrics; Visit Provider Pediatrics | DX: Z01.812 Encounter for preprocedural laboratory examination (principal); Z01.810 Encounter for preprocedural cardiovascular examination | CPT/HCPCS: 93005; 93010 ==

== ENCOUNTER 2022-05-02 13:30 | Emergency (ER) | payer MEDICARE, OTHER, SELFPAY ==
[2022-05-02 14:00] VITALS: BP 169/77; PULSE 71; RESP 16; TEMP 36.6; O2SAT 98; BMI 20.9
[2022-05-02 14:29] VITALS: PULSE 71; RESP 19; O2SAT 98
[2022-05-02 14:30] VITALS: PULSE 71; O2SAT 98
[2022-05-02 14:33] LABS: Add Manual Diff / Slide Review NO; Basophils Absolute Auto 100 /uL (0-100); Basophils Percent Auto 0.9 % (0-2); Eosinophils Absolute Auto 200 /uL (0-450); Eosinophils Percent Auto 2.2 % (2-4); Hematocrit 44.2 % (36-46); Hemoglobin 15.2 g/dL (12.0-16.0); Lymphocytes Absolute Auto 1600 /uL (1100-4500); Lymphocytes Percent Auto 21.6 % (25-40); Mean Corpuscular HGB Conc 34.4 % (30-36); Monocytes Absolute Auto 900 /uL (0-900); Monocytes Percent Auto 11.7 % (3-14); Neutrophils Absolute Auto 4800 /uL (1500-7000); Neutrophils Percent Auto 63.6 % (50-75); Platelet Count 206 X10^3/uL (150-400); Red Blood Cell Count 4.61 X10^6/uL (4.0-5.2); Red Cell Distribution Width 13.4 % (11.6-14.8); White Blood Cell Count 7.5 X10^3/uL (4.5-11.0)
[2022-05-02 14:34] LABS: Prothrombin Time 10.9 SECONDS (10.1-12.7)
--- NOTE | 2022-05-02 14:35 | PC.NURSE ---
Pt reports tarry stool that began a couple weeks ago with increasing darkness in stool and abdominal cramping. Tender to palpation in URQ. Pt reports stopping plavix 2 weeks ago and stopping brilinta this morning. Pt reports hx of migraines and enlarged blood vessels behind my right eye. Pt denies SOB, chest pain, dizziness. Call light within reach. Encouraged to call for any new or worsening symptoms.
[2022-05-02 14:41] LABS: Alanine Aminotransferase 19 IU/L (<35); Albumin 4.1 g/dL (3.5-5.0); Albumin Globulin Ratio 1.2 (1.0-2.8); Alkaline Phosphatase 77 U/L (38-126); Aspartate Aminotransferase 30 IU/L (14-36); BUN Creatinine Ratio 38.5 (6-22); Bilirubin Total 0.3 mg/dL (0.2-1.3); Blood Urea Nitrogen 35 mg/dL (7-17); Calcium 9.2 mg/dL (8.4-10.2); Carbon Dioxide 26 mmol/L (22-32); Chloride 105 mmol/L (98-107); Estimated Glomerular Filt Rate > 60 mL/min (>60); Globulin 3.4 g/dL (1.7-4.1); Glucose 136 mg/dL (80-110); HEMOLYSIS 26 (0-50); Potassium 4.5 mmol/L (3.4-5.1); Sodium 137 mmol/L (137-145); Total Protein 7.5 g/dL (6.3-8.2)
[2022-05-02 15:00] VITALS: BP 140/73; PULSE 67; O2SAT 97
--- NOTE | 2022-05-02 15:07 | ED.GIBLEED ---
HPI - GI Bleed General Chief complaint: GI Bleed Stated complaint: Bleeding ulcer Time Seen by Provider: 05/02/22 14:26 Mode of arrival: Family Vehicle History of Present Illness HPI Narrative: 86-year-old woman with history of hypertension, migraine headaches, hyperlipidemia and reflux disease, presenting today with 2 weeks of black tarry stools. She says that she was previously on Plavix and then started on Brilinta. 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 There is associated mass effect on the right aspect of the optic chiasm.She is being followed at [facility] for this. Today she said she had 1 very large black bowel movement which scared her. She has chronic diffuse all-over abdominal cramping no nausea vomiting. She denies any chest pain shortness of breath dizziness or lightheadedness. Related Data Home Medications Medication Instructions Recorded Confirmed loteprednol etabonate 0.5 % eye EYE-BOTH ONCE 02/02/19 01/15/22 drops,suspension (Lotemax) calcium PO 05/04/21 01/15/22 cholecalciferol (vitamin D3) 10 10 mcg PO DAILY 05/04/21 01/15/22 mcg (400 unit) capsule coenzyme Q10 100 mg capsule (Co 100 mg PO DAILY 05/04/21 01/15/22 Q-10) multivitamin (One-A-Day Essential 1 tab PO DAILY 05/04/21 01/15/22 tablet) Previous Rx's Medication Instructions Recorded ezetimibe 10 mg tablet (Zetia) 10 mg PO Q DAY #90 tabs 08/10/21 omeprazole 20 mg capsule,delayed See Rx Instructions .Route 03/06/22 release .COMPLEX #180 caps ergotamine 1 mg-caffeine 100 mg 1 tab PO Q30M #15 tabs 03/15/22 tablet fluticasone propionate 50 1 spray intranasal BID #19.2 grams 03/24/22 mcg/actuation nasal spray,suspension nadolol 80 mg tablet See Rx Instructions .Route 04/26/22 .COMPLEX #90 tabs Allergies Allergy/AdvReac Type Severity Reaction Status Date / Time dichloralphenazone Allergy Mild unknown Verified 05/02/22 14:02 [From MIDRIN] erythromycin base Allergy Mild rash Verified 05/02/22 14:02 [From E-MYCIN] isometheptene [From MIDRIN] Allergy Mild unknown Verified 05/02/22 14:02 metronidazole [From FLAGYL] Allergy Mild unknown Verified 05/02/22 14:02 nitrofurantoin Allergy Mild rash Verified 05/02/22 14:02 [From MACRODANTIN] Sulfa (Sulfonamide Allergy Mild RASH/FEVER Verified 05/02/22 14:02 Antibiotics) [SULFA (SULFONAMIDE ANTIBIOTICS)] doxycycline Allergy Unknown Verified 05/02/22 14:02 fexofenadine [From Negra] AdvReac Intermediate worsens Verified 05/02/22 14:02 migraine loratadine [From Claritin] AdvReac Intermediate worsens Verified 05/02/22 14:02 migraine aspirin AdvReac upset Verified 05/02/22 14:02 stomach Review of Systems Review of Systems Narrative: GENERAL: Denies chills, fatigue, malaise, fever, sweats, travel HEENT: Denies sinus pain, ear pain, sore throat, difficulty swallowing, neck pain RESPIRATORY: Denies dyspnea, cough, wheezing, hemoptysis, sputum. CARDIOVASCULAR: Denies chest pain, palpitations, orthopnea, edema GASTROINTESTINAL: See HPI : Denies dysuria, frequency, incontinence, hematuria, urinary retention, flank pain. MUSCULOSKELETAL: Denies weakness, joint pain, or bony pain SKIN: No rash, no erythema, no pruritus NEUROLOGIC: Denies weakness, dizziness, headache, numbness, change in speech, confusion PSYCHIATRIC: No concerning psychosocial issues. 12 point review of systems is negative except for those stated above and HPI Patient History Medical History Actinic keratosis Chronic kidney disease (CKD) stage G3a/A1, moderately decreased glomerular filtration rate (GFR) between 45-59 mL/min/1.73 square meter and albuminuria creatinine ratio less than 30 mg/g Endometriosis GERD (gastroesophageal reflux disease) Hip fracture (~11/07/21) House dust mite allergy Impaired fasting glucose Lactose intolerance Migraine headache without aura Mild cognitive impairment Osteoporosis Recurrent sinusitis Rosacea Seasonal allergies Supraspinatus tendon tear Vertebral compression fracture Surgical History Anesthesia History of colonoscopy History of esophagogastroduodenoscopy (EGD) History of sinus surgery Family History Father Cancer Mother Hypertension History of heart disease Brother Cancer Sister Cancer Grandmother Diabetes mellitus Grandmother No problems noted. Social History household members: friend(s) Smoking Status: Never smoker Smoking Status: Never smoker alcohol intake frequency: holidays/special occasions only Substance Use Type: does not use Exam Initial Vital Signs Initial Vital Signs: Vital Signs Temperature 98 F 05/02/22 14:00 Pulse Rate 71 05/02/22 14:00 Respiratory Rate 16 05/02/22 14:00 Blood Pressure 169/77 H 05/02/22 14:00 Pulse Oximetry 98 05/02/22 14:00 Oxygen Delivery Method 05/02/22 14:00 GENERAL: Alert pleasant 86-year-old female and in no acute distress. HEENT: Head atraumatic,EOMI, pupils reactive, face symmetric, moist mucous membranes CARDIOVASCULAR: Regular rate and rhythm without murmurs, rubs or gallops. RESPIRATORY: Breath sounds equal bilaterally, no wheezes rales or rhonchi. ABDOMEN: Soft, nontender. Normoactive bowel sounds all 4 quadrants. No guarding or rebound. RECTAL: Hemoccult-negative, no hemorrhoids, nontender : No CVA tenderness EXTREMITIES: Normal range of motion, no clubbing or edema. Neurovascularly intact NEUROLOGICAL: Alert and oriented x4.Normal gait and speech. SKIN: Warm, dry, no laceration, no petechiae, no rashes or lesions. Course Orders Ordered: ED Orders 05/02/22 14:15 Complete Blood Count AUTO DIFF Stat Comprehensive Metabolic Panel Stat Lactate (Lactic Acid) Stat Prothrombin Time INR Stat 05/02/22 14:46 EKG-12 Lead Stat Discontinued Medications Pantoprazole Sodium (Pantoprazole 40 Mg Vial) 40 mg IV NOW ONE Stop: 05/02/22 15:19 Last Admin: 05/02/22 15:31 Dose: 40 mg Documented By: SB Vital Signs Vital signs: Vital Signs - 8 hr 05/02/22 14:00 05/02/22 15:45 05/02/22 14:29 Temperature 98 F Pulse Rate 71 66 71 Respiratory Rate 16 20 19 Blood Pressure 169/77 H 139/67 Pulse Oximetry 98 98 98 Oxygen Delivery Method Room Air Room Air 05/02/22 14:30 05/02/22 15:00 05/02/22 15:00 Temperature Pulse Rate 71 67 Respiratory Rate Blood Pressure 140/73 Pulse Oximetry 98 97 Oxygen Delivery Method 05/02/22 15:30 05/02/22 15:30 Temperature Pulse Rate 67 Respiratory Rate 20 Blood Pressure 139/67 Pulse Oximetry 99 Oxygen Delivery Method MDM - GI Bleed Lab Data Result diagrams: 05/02/22 14:15 05/02/22 14:15 Labs: Lab Results 05/02/22 05/02/22 05/02/22 Range/Units 14:15 14:15 14:15 WBC 7.5 (4.5-11.0) X10^3/uL RBC 4.61 (4.0-5.2) X10^6/uL Hgb 15.2 (12.0-16.0) g/dL Hct 44.2 (36-46) % MCV 96.0 (80-100) fL MCH 33.0 (26-34) PG MCHC 34.4 (30-36) % RDW 13.4 (11.6-14.8) % Plt Count 206 (150-400) X10^3/uL Neut % (Auto) 63.6 (50-75) % Lymph % (Auto) 21.6 L (25-40) % [place] % (Auto) 11.7 (3-14) % Eos % (Auto) 2.2 (2-4) % Baso % (Auto) 0.9 (0-2) % Neut # (Auto) 4800 (9592-4663) /uL Lymph # (Auto) 1600 (2870-8370) /uL [place] # (Auto) 900 (0-900) /uL Eos # (Auto) 200 (0-450) /uL Baso # (Auto) 100 (0-100) /uL PT 10.9 (10.1-12.7) SECONDS INR 1.0 (0.9-1.3) Sodium 137 (137-145) mmol/L Potassium 4.5 (3.4-5.1) mmol/L Chloride 105 (98-107) mmol/L Carbon Dioxide 26 (22-32) mmol/L BUN 35 H (7-17) mg/dL Creatinine 0.91 (0.52-1.04) mg/dL Estimated GFR > 60 (>60) mL/min BUN/Creatinine Ratio 38.5 H (6-22) Glucose 136 H (80-110) mg/dL Lactate (0.7-2.1) mmol/L Calcium 9.2 (8.4-10.2) mg/dL Total Bilirubin 0.3 (0.2-1.3) mg/dL AST 30 (14-36) IU/L ALT 19 (<35) IU/L Alkaline Phosphatase 77 (38-126) U/L Total Protein 7.5 (6.3-8.2) g/dL Albumin 4.1 (3.5-5.0) g/dL Globulin 3.4 (1.7-4.1) g/dL Albumin/Globulin Ratio 1.2 (1.0-2.8) / Range/Units 14:15 WBC (4.5-11.0) X10^3/uL RBC (4.0-5.2) X10^6/uL Hgb (12.0-16.0) g/dL Hct (36-46) % MCV (80-100) fL MCH (26-34) PG MCHC (30-36) % RDW (11.6-14.8) % Plt Count (150-400) X10^3/uL Neut % (Auto) (50-75) % Lymph % (Auto) (25-40) % [place] % (Auto) (3-14) % Eos % (Auto) (2-4) % Baso % (Auto) (0-2) % Neut # (Auto) (7265-1534) /uL Lymph # (Auto) (4015-9859) /uL [place] # (Auto) (0-900) /uL Eos # (Auto) (0-450) /uL Baso # (Auto) (0-100) /uL PT (10.1-12.7) SECONDS INR (0.9-1.3) Sodium (137-145) mmol/L Potassium (3.4-5.1) mmol/L Chloride (98-107) mmol/L Carbon Dioxide (22-32) mmol/L BUN (7-17) mg/dL Creatinine (0.52-1.04) mg/dL Estimated GFR (>60) mL/min BUN/Creatinine Ratio (6-22) Glucose (80-110) mg/dL Lactate 1.0 (0.7-2.1) mmol/L Calcium (8.4-10.2) mg/dL Total Bilirubin (0.2-1.3) mg/dL AST (14-36) IU/L ALT (<35) IU/L Alkaline Phosphatase (38-126) U/L Total Protein (6.3-8.2) g/dL Albumin (3.5-5.0) g/dL Globulin (1.7-4.1) g/dL Albumin/Globulin Ratio (1.0-2.8) ECG Data Interpretation: Sinus rhythm rate 69 [place] interval 156 QRS [address] changes or T-wave inversions MDM Narrative Medical decision making narrative: The patient has had black tarry stools ongoing for a number of weeks. She is not anemic hemoccult is negative. She is not taking Pepto-Bismol. She in fact is taking omeprazole 40 mg twice a day. She had an EGD all 1 year ago for esophageal dysphagia. She has spoken to [place] she was going to do her surgery and she is to stop her Brilinta. At this time I recommend outpatient follow-up. Blood work today is overall reassuring. Guaiac is in fact negative. No need for admission transfusion or any further workup today. Discharge Plan Departure Patient Disposition: Home Clinical Impression: Gastritis Instructions: DI for Gastric Ulcer, Gastrointestinal Bleeding Activity Restrictions/Additional Instructions: *You have been diagnosed with gastritis, ulcer *What to do: At this time I agree with [place] in stopping your medication. Please follow their instructions. *Continue to take medications as directed *Follow up with your primary care provider in 2-3 days or call [phone] López for outpatient follow-up, call this week *Return to ER if you should have increasing abdominal pain nausea vomiting bright red stool weakness dizziness, [or] any new, worsening or concerning symptoms Prescriptions: No Action ezetimibe [Zetia] 10 mg tablet 10 mg PO Q DAY Qty: 90 3RF omeprazole 20 mg capsule,delayed release(DR/EC) See Rx Instructions .ROUTE .COMPLEX Qty: 180 3RF Dose Instruction: TAKE 1 CAPSULE TWICE A DAY Rx Instructions: TAKE 1 CAPSULE TWICE A DAY ergotamine-caffeine 1-100 mg tablet 1 tab PO Q30M MDD 3 Qty: 15 0RF Rx Instructions: do not exceed 3 mg per day or 5 mg per wk fluticasone propionate 50 mcg/actuation spray,suspension 1 spray NASAL BID Qty: 19.2 3RF nadolol 80 mg tablet See Rx Instructions .ROUTE .COMPLEX Qty: 90 0RF Dose Instruction: TAKE 1 TABLET DAILY Rx Instructions: TAKE 1 TABLET DAILY Lotemax 0.5 % drops,suspension EYE-BOTH ONCE cholecalciferol (vitamin D3) 10 mcg (400 unit) capsule 10 mcg PO DAILY multivitamin [One-A-Day Essential] Tablet 1 tab PO DAILY coenzyme Q10 [Co Q-10] 100 mg capsule 100 mg PO DAILY calcium PO Referrals: Ilir Baez MD [Primary Care Provider] - Visit Report Forms: Patient Portal/API
[2022-05-02 15:30] VITALS: BP 139/67; PULSE 67; RESP 20; O2SAT 99
[2022-05-02] MEDS: PANTOPRAZOLE 40 MG VIAL IV (15:31)
[2022-05-02 15:45] VITALS: BP 139/67; PULSE 66; RESP 20; O2SAT 98
== END 2022-05-02 15:50 | disposition home or self-care (01) ==
PROVIDERS: Emergency Provider Emergency Medicine; Family Provider Family Medicine; PCP Pediatrics
DX: K29.01 Acute gastritis with bleeding (principal); I10 Essential (primary) hypertension
CPT/HCPCS: 36415; 80053; 83605; 85025; 85610; 93005; 93010; 96374; 99284; C9113

== ENCOUNTER → 2022-05-21 09:12 | Outpatient (CLI) | payer MEDICARE, OTHER, SELFPAY ==
[2022-05-21 11:29] LABS: COVID19 -Nasal RAPID Negative (Negative)
== END ==
PROVIDERS: Family Provider Family Medicine; PCP Pediatrics; Visit Provider Surgery
DX: Z20.822 Contact with and (suspected) exposure to COVID-19 (principal); Z01.812 Encounter for preprocedural laboratory examination
CPT/HCPCS: 87635; C9803

== ENCOUNTER 2022-05-22 11:07 | Day surgery (SDC) | payer MEDICARE, OTHER, SELFPAY ==
[2022-05-22] VITALS (7 sets, daily range): BP systolic 140–164; BP diastolic 72–79; PULSE 62–78; RESP 12–21; TEMP 36–37; O2SAT 95–100; BMI 20.2
--- NOTE | 2022-05-22 | PATH_ITS ---
[facility] [place] Accession Number: [id number] . 01 Material submitted: . gastrointestinal site - GASTRIC BIOPSIES . 01 Clinical history: . EGD . 01 Diagnosis: Stomach, Biopsies: Gastric body mucosa with minimal chronic inflammtion and proton pump inhibitor-like effect. Negative for Helicobacter organisms by immunohistochemistry. Negative for intestinal metaplasia. Negative for dysplasia or malignancy. MRV 05/25/2022 1351 Local . 01 Electronically signed: . Garrett Villeda MD, PhD, Pathologist NPI- [id number] . 01 Gross description: . GASTRIC BIOPSIES: Received in formalin are minute fragment(s) of lindsay, soft tissue measuring 0.2 x 0.2 x 0.1 cm in aggregate submitted entirely in 1 cassette(s) /CPE 05/23/2022 0853 Local . 01 Microscopic: . An immunohistochemical stain was performed to evaluate for Helicobacter organisms and is negative. The control stain showed appropriate reactivity. . * This test was developed and its performance characteristics determined by [employer]. It has not been cleared or approved by the U.S. Food and Drug Administration. The FDA has determined that such clearance or approval is not necessary. This test is used for clinical purposes. It should not be regarded as investigational or for research. . 01 Pathologist provided ICD-10: R13.10, K29.70 . 01 CPT . 727667, L90888 Specimen Comment: A courtesy copy of this report has been sent to [phone] Performed at: 01 [facility] [address] [place] [address], [place], [place] [id number] MD Alejo Hopkins MD Phone: [phone]
[2022-05-22] MEDS: LACTATED RINGERS 1,000 ML 200 ML IV (11:39)
--- NOTE | 2022-05-22 11:54 | PM.PREOP ---
Pre-operative Note Interval Note History & Physical reviewed/Exam performed by Physician: Yes Changes to H&P: No
--- NOTE | 2022-05-22 12:17 | PM.OP.EGD ---
Operative Date/Time/Diagnoses Date of procedure: 05/22/22 Time of procedure: 12:17 Pre-op diagnosis: Esophageal dysphagia Post-op diagnosis: other (Gastritis) Procedure & Clinicians Study performed: Esophagoduodenoscopy Same procedure as scheduled: Yes Indications: Esophageal dysphagia Surgeon: Fei López Procedure Notes Procedure in detail: Patient placed in left lateral decubitus position. Time out was performed. Procedural sedation was administered with Versed and Fentanyl. A bite block was placed. the scope was inserted into the mouth and advanced through the esophagus and into the stomach. There were no esophageal strictures in the scope easily passed into the stomach. Upon entry into the stomach there was noted flecks of clot within the stomach. No distinct ulceration although there was generalized gastritis. Biopsy of the gastritis was performed with the biopsy forceps. The pylorus was intubated and the duodenum was normal to the 2nd portion. The scope was retroflexed within the stomach and there was a moderate-sized hiatal hernia. The scope was withdrawn into the esophagus the Z line was seen at 40 cm from the incisions. There was no Barber's esophagitis or masses or strictures. Stomach was desufflated and scope removed. Patient tolerated procedure well. Specimen(s): other (Gastric biopsy) Complications: none Impression: Gastritis Post-procedure Recommendations: Start medication(s) (Pepcid) Plan for aftercare: Start famotidine in addition to chronic home omeprazole Disposition: same day surgery
[2022-05-22] MEDS: MIDAZOLAM 5 MG/5 ML VIAL IV (12:18)
[2022-05-22] MEDS: LIDOCAINE 4% SOLN 50 ML 20 ML TOP (12:18)
[2022-05-22] MEDS: fentaNYL 250 MCG/5 ML INJ IV (12:19)
--- NOTE | 2022-05-22 13:29 | SUR.PHASEII ---
1248 report from [place] MANCILLA. Pt alert, oriented. Complained of gas and stomach distention. Pt turned on left side. Expelled large amt of gas. Pt stated it made her feel better. Pt ride not available until at least 1:30pm.
== END 2022-05-22 13:48 | disposition home or self-care (01) ==
PROVIDERS: Family Provider Family Medicine; PCP Pediatrics; Referring Provider Surgery; Visit Provider Surgery
PROC: 0DJ08ZZ Inspection of Upper Intestinal Tract, Via Natural or Artificial Opening Endoscopic (ICD-10-PCS; CPT 43235; principal; 2022-05-22 12:30)
DX: R13.19 Other dysphagia (principal); K44.9 Diaphragmatic hernia without obstruction or gangrene; K29.50 Unspecified chronic gastritis without bleeding
CPT/HCPCS: 43239; J2250; J3010

== ENCOUNTER → 2022-08-06 09:05 | Outpatient (CLI) | payer MEDICARE, OTHER, SELFPAY ==
--- NOTE | 2022-08-06 | DI.MG.S_ITS ---
BILATERAL DIGITAL SCREENING MAMMOGRAM 3D/2D WITH CAD: 08/06/2022 CLINICAL: Routine screening. Family history of breast cancer. Comparison is made to exams dated: 08/02/2021 mammogram, 07/19/2020 mammogram, and 07/16/2019 mammogram - [facility]. There are scattered areas of fibroglandular density in both breasts (category b / 25%-50% glandular tissue). Current study was also evaluated with a Computer Aided Detection (CAD) system. There are benign calcifications in both breasts. No significant masses, calcifications, or other findings are seen in either breast. There has been no significant interval change. IMPRESSION: BENIGN There is no mammographic evidence of malignancy. A 1 year screening mammogram is recommended. This exam was interpreted at Station ID: [id number]. NOTE: For mammograms, a report in lay terms will be sent to the patient. Approximately 15% of breast malignancies will not be visualized mammographically. In the management of a palpable breast mass, a negative mammogram must not discourage biopsy of a clinically suspicious lesion. Electronically Signed By: Vicente salcedo/ami:08/06/2022 12:36:23 letter sent: Normal Exam ACR BI-RADS Category 2: Benign Finding(s) 3342F
== END ==
PROVIDERS: Family Provider Family Medicine; PCP Family Medicine; Referring Provider Pediatrics; Visit Provider Pediatrics
DX: Z12.31 Encounter for screening mammogram for malignant neoplasm of breast (principal); Z80.3 Family history of malignant neoplasm of breast
CPT/HCPCS: 77063; 77067

== ENCOUNTER → 2023-04-01 13:47 | Outpatient (CLI) | payer MEDICARE, OTHER, SELFPAY ==
[2023-04-01 16:56] LABS: Alanine Aminotransferase 21 IU/L (<35); Albumin 3.8 g/dL (3.5-5.0); Alkaline Phosphatase 74 U/L (38-126); Aspartate Aminotransferase 29 IU/L (14-36); BUN Creatinine Ratio 30.9 (6-22); Bilirubin Total 0.2 mg/dL (0.2-1.3); Blood Urea Nitrogen 30 mg/dL (7-17); Calcium 9.3 mg/dL (8.4-10.2); Carbon Dioxide 31 mmol/L (22-32); Chloride 98 mmol/L (98-107); Estimated Glomerular Filt Rate 57 mL/min (>60); Globulin 3.7 g/dL (1.7-4.1); Glucose 108 mg/dL (80-110); HEMOLYSIS < 15 (0-50); Potassium 4.1 mmol/L (3.4-5.1); Sodium 135 mmol/L (137-145); Total Protein 7.5 g/dL (6.3-8.2)
== END ==
PROVIDERS: Family Provider Family Medicine; PCP Family Medicine; Referring Provider Family Medicine; Visit Provider Family Medicine
DX: N18.31 Chronic kidney disease, stage 3a (principal)
CPT/HCPCS: 36415; 80053

== ENCOUNTER → 2023-04-02 14:07 | Outpatient (CLI) | payer MEDICARE, OTHER, SELFPAY ==
--- NOTE | 2023-04-02 14:08 | DI.CT.S_ITS ---
PROCEDURE: CT ANGIO HEAD AND NECK INDICATIONS: monitor right internal carotid aneurysm and optic chiasm TECHNIQUE: Pre-contrast 4.5 mm thick sections acquired from the foramen magnum to the vertex. After the administration of intravenous contrast, 1 mm thick sections acquired from the aortic arch through the [place] of [place]. Post-contrast 4.5 mm thick sections then re-acquired from the foramen magnum to the vertex. 3-dimensional ethznxc-lrkkcgpas-fgzdxizxmv (MIP) and/or volume rendering reformats were acquired of the central intracranial vasculature and neck separately. For radiation dose reduction, the following was used: automated exposure control, adjustment of mA and/or kV according to patient size. COMPARISON: [facility], CT, CT ANGIO HEAD AND NECK, 03/01/2022, 19:35. [facility], CT, CT HEAD/BRAIN WO CON, 03/01/2022, 12:08. FINDINGS: Image quality: Mild streak artifact can be seen through the skull base. BRAIN: CSF spaces: Ventricles are normal in size and shape. Basal cisterns are patent. No extra-axial fluid collections. Brain: No midline shift. No intracranial bleeds or masses. Angela-white matter interface appears intact. Skull and face: Calvarium and facial bones appear intact, without suspicious lesions. Orbits appear normal. Sinuses: Postoperative change can be seen, with removal of the medial mcgee of the maxillary sinuses and portions of the ethmoid air cells. The left inferior turbinate has been removed. Moderate mucosal thickening is seen within the left maxillary sinus. No significant underlying paranasal sinus disease can be seen elsewhere. HEAD CT ANGIOGRAPHY: Anterior circulation: Emanating from the right supraclinoid internal carotid artery, there is a focal aneurysm seen that measures 9 mm craniocaudal, with a greatest axial extent of 9 x 10 mm. The aneurysm neck is relatively wide mouth at 5 mm. Mild mass effect can be seen upon the adjacent right ventral forebrain and the right optic nerve, yet without mass effect upon the optic chiasm. Intracranial internal carotid arteries are normal in size and flow. The flow within the paired anterior cerebral arteries is normal and symmetric. The flow within the middle cerebral arteries is normal and symmetric. The anterior communicating artery is seen. Posterior circulation: Visualized portions of the vertebral arteries demonstrate normal caliber, and join to form a normal appearing basilar artery. Flow within the posterior cerebral arteries is normal and symmetric. No aneurysms are seen. NECK CT ANGIOGRAPHY: Carotid system: The great vessels demonstrate a conventional anatomy as they arise from the aortic arch. The origins of the common carotid arteries appear patent. The common carotid arteries demonstrate normal caliber and courses. The bifurcation regions are both widely patent. The internal carotid arteries demonstrate normal calibers and courses. Posterior circulation: The origins of the vertebral arteries both appear widely patent. The more superior extracranial portions of both vertebral arteries also demonstrate normal courses and calibers. They join to form a normal appearing basilar artery. Soft tissues: Visualized neck soft tissues demonstrate no suspicious abnormalities. Bones: No suspicious bony lesions. Visualized cervical spine appears normally aligned. Mseg-wd-youxeizf mucosal thickening is seen within the cervical spine. IMPRESSION: There is a stable right supraclinoid aneurysm emanating from the right internal auditory canal. No significant change in size can be seen compared to the prior. There is mass effect upon the optic nerve, as before. No hemodynamically significant stenosis can be seen within the intracranial circulation or within the arteries of the neck. Additional findings: Paranasal sinus surgery Focal moderate mucosal thickening within the left maxillary sinus Rmla-vf-fkpgxzns cervical spine degenerative change Any quantitative measurements of stenosis were performed using NASCET criteria. Dictated by: Maximo Coates M.D. on 04/02/2023 at 13:43 Approved by: Maximo Coates M.D. on 04/02/2023 at 13:50
== END ==
PROVIDERS: Family Provider Family Medicine; PCP Family Medicine; Referring Provider Family Medicine; Visit Provider Family Medicine
DX: I72.0 Aneurysm of carotid artery (principal); H53.141 Visual discomfort, right eye; M47.812 Spondylosis without myelopathy or radiculopathy, cervical region
CPT/HCPCS: 70496; 70498; Q9967

== ENCOUNTER 2023-07-24 08:20 | Day surgery (SDC) | payer MEDICARE, OTHER, SELFPAY ==
--- NOTE | 2023-07-24 | PATH_ITS ---
[facility] Accession Number: [id number] No. of containers..03 Tissue . 01 Material submitted: . PART A: stomach - ANTRAL PART B: stomach - FUNDUS POLYP PART C: esophagus - ESOPHAGUS . 01 Diagnosis: A. Gastric Antrum, Biopsy: Gastric antral mucosa with minimal chronic inflammation. Negative for Helicobacter organisms by immunohistochemistry. Negative for intestinal metaplasia. Negative for dysplasia or malignancy. . B. Gastric Fundus Polyp, Biopsy: Fundic gland polyp. No evidence of Helicobacter organisms on H/E stain. Negative for intestinal metaplasia. Negative for dysplasia and malignancy. . C. Esophagus, Biopsy: Squamous epithelium with no diagnostic abnormality. Intraepithelial eosinophils are not increased. Negative for dysplasia and malignancy. MRV 07/30/2023 1224 Local . 01 Electronically signed: . Garrett Villeda MD, PhD, Pathologist NPI- [id number] . 01 Gross description: . Part A: ANTRAL: Received in formalin is 2 fragment(s) of lindsay, soft tissue measuring 0.6 x 0.3 x 0.2 cm to 0.3 x 0.2 x 0.1 cm submitted entirely in 1 cassette(s) Part B: FUNDUS POLYP: Received in formalin is 1 fragment(s) of lindsay, soft tissue measuring 0.3 x 0.3 x 0.2 cm submitted entirely in 1 cassette(s) Part C: ESOPHAGUS: Received in formalin is 1 fragment(s) of lindsay, soft tissue measuring 0.3 x 0.2 x 0.1 cm submitted entirely in 1 cassette(s) /AA 07/26/2023 0228 Local . 01 Microscopic: . A. An immunohistochemical stain was performed to evaluate for Helicobacter organisms and is negative. The control stain showed appropriate reactivity. . * This test was developed and its performance characteristics determined by [employer]. It has not been cleared or approved by the U.S. Food and Drug Administration. The FDA has determined that such clearance or approval is not necessary. This test is used for clinical purposes. It should not be regarded as investigational or for research. . 01 Pathologist provided ICD-10: K29.70, K31.7, R13.10 . 01 CPT . 435947, 210689, 612479, B46016 Specimen Comment: A courtesy copy of this report has been sent to [phone] Performed at: 01 [facility] [address] [place] [address], [place], [place] [id number] MD Alejo Hopkins MD Phone: [phone]
[2023-07-24 08:30] VITALS: BP 142/77; PULSE 71; RESP 17; TEMP 36.6; O2SAT 97; BMI 21.0
[2023-07-24] MEDS: LACTATED RINGERS 1,000 ML 150 ML IV (08:46)
--- NOTE | 2023-07-24 09:04 | P.HP_ITS ---
History of Present Illness History of Present Illness Date Patient Seen: 07/24/23 Chief complaint: EGD Narrative: Cervical dysphagia and symptoms of reflux/dyspepsia. 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 Hip fracture (~11/07/21) Lactose intolerance Mild cognitive impairment House dust mite allergy Supraspinatus tendon tear Left wrist fracture Right shoulder pain Chronic kidney disease (CKD) stage G3a/A1, moderately decreased glomerular filtration rate (GFR) between 45-59 mL/min/1.73 square meter and albuminuria creatinine ratio less than 30 mg/g Impaired fasting glucose Rosacea Actinic keratosis Seasonal allergies Recurrent sinusitis Endometriosis GERD (gastroesophageal reflux disease) Osteoporosis Vertebral compression fracture Migraine headache without aura Surgical History Anesthesia History of esophagogastroduodenoscopy (EGD) History of colonoscopy History of sinus surgery Family History Father Cancer Mother Hypertension History of heart disease Brother Cancer Sister Cancer Grandmother Diabetes mellitus Grandmother No problems noted. Social History household members: none Smoking Status: Never smoker alcohol intake: current Meds Home Medications and Allergies Home Medications Medication Instructions Recorded Confirmed Type loteprednol etabonate 0.5 % eye See Rx Instructions .Route .COMPLEX 02/02/19 07/24/23 History drops,suspension (Lotemax) cholecalciferol (vitamin D3) 10 10 mcg PO DAILY 05/04/21 07/24/23 History mcg (400 unit) capsule coenzyme Q10 100 mg capsule (Co 100 mg PO DAILY 05/04/21 07/24/23 History Q-10) multivitamin (One-A-Day Essential 1 tab PO DAILY 05/04/21 07/24/23 History tablet) ezetimibe 10 mg tablet See Rx Instructions .Route 08/09/22 07/24/23 Rx .COMPLEX #90 tabs calcium acetate PO 01/21/23 01/21/23 History nadolol 40 mg tablet 40 mg PO DAILY #90 tabs 01/21/23 07/24/23 Rx ergotamine 1 mg-caffeine 100 mg See Rx Instructions .Route 02/27/23 07/24/23 Rx tablet .COMPLEX #15 tabs omeprazole 20 mg capsule,delayed See Rx Instructions .Route 03/15/23 07/24/23 Rx release .COMPLEX #180 caps fluticasone propionate 50 1 spray intranasal BID #19.2 grams 04/01/23 07/24/23 Rx mcg/actuation nasal spray,suspension Allergies Allergy/AdvReac Type Severity Reaction Status Date / Time dichloralphenazone Allergy Mild unknown Verified 01/21/23 10:56 [From MIDRIN] erythromycin base Allergy Mild rash Verified 01/21/23 10:56 [From E-MYCIN] isometheptene [From MIDRIN] Allergy Mild unknown Verified 01/21/23 10:56 metronidazole [From FLAGYL] Allergy Mild unknown Verified 01/21/23 10:56 nitrofurantoin Allergy Mild rash Verified 01/21/23 10:56 [From MACRODANTIN] Sulfa (Sulfonamide Allergy Mild RASH/FEVER Verified 01/21/23 10:56 Antibiotics) [SULFA (SULFONAMIDE ANTIBIOTICS)] doxycycline Allergy Unknown Verified 01/21/23 10:56 fexofenadine [From Negra] AdvReac Intermediate worsens Verified 01/21/23 10:56 migraine loratadine [From Claritin] AdvReac Intermediate worsens Verified 01/21/23 10:56 migraine aspirin AdvReac upset Verified 01/21/23 10:56 stomach Exam Vital Signs (past 8 hours): - 07/24/23 08:30 Temperature 97.8 F Pulse Rate 71 Respiratory Rate 17 Blood Pressure 142/77 H Pulse Oximetry 97 Oxygen Delivery Method Room Air Oxygen Delivery Method Room Air Narrative Exam Narrative: Oropharynx free of lesions Chest clear to auscultation percussion Cardiac exam reveals no S3 or murmur Assessment & Plan Assessment & Plan narrative: Cervical dysphagia and symptoms of reflux need for follow-up endoscopy. Risks, benefits, alternatives have been explained.
--- NOTE | 2023-07-24 09:05 | PM.OP.EGD ---
Operative Date/Time/Diagnoses Date of procedure: 07/24/23 Pre-op diagnosis: See indication and findings Procedure & Clinicians Study performed: EGD Indications: Cervical dysphagia and GE reflux Surgeon: Anju Rossi Procedure Notes Procedure in detail: After informed consent was obtained the patient was placed in left lateral decubitus position. The video upper scope was placed into the oropharynx and with the patient's help swallowed into the esophagus. The esophagus stomach and duodenum were carefully examined. On withdrawal, retroflexed view the GE junction was performed. The scope was removed. The patient tolerated the procedure well. Blood loss none Complications none Sedation mac Findings 1. Normal esophagus. Biopsies taken to rule out eosinophilic esophagitis 2. Three diminutive polyps in the fundus biopsy taken to rule out adenoma 3. Striped gastric erythema distally in the antrum and pre-pyloric regions. Biopsies taken to rule out Helicobacter 4. Normal duodenal bulb and sweep Will be in touch regarding biopsies. She will not need any routine follow-up unless adenomas are shown.
[2023-07-24 09:55] VITALS: BP 146/79; PULSE 67; RESP 20; TEMP 36.4; O2SAT 98
[2023-07-24 10:00] VITALS: BP 137/67; PULSE 68; RESP 19; TEMP 36.4; O2SAT 98
[2023-07-24 10:07] VITALS: BP 147/65; PULSE 66; RESP 17; O2SAT 98
[2023-07-24 10:17] VITALS: BP 143/69; PULSE 69; RESP 17; TEMP 36.3; O2SAT 98
== END 2023-07-24 10:24 | disposition home or self-care (01) ==
PROVIDERS: Family Provider Family Medicine; PCP Family Medicine; Referring Provider Internal Medicine Gastroenterology; Visit Provider Internal Medicine Gastroenterology
PROC: 0DJ08ZZ Inspection of Upper Intestinal Tract, Via Natural or Artificial Opening Endoscopic (ICD-10-PCS; CPT 43235; principal; 2023-07-24 09:30)
DX: R13.10 Dysphagia, unspecified (principal); K21.9 Gastro-esophageal reflux disease without esophagitis; K31.7 Polyp of stomach and duodenum; K29.50 Unspecified chronic gastritis without bleeding
CPT/HCPCS: 43239; J2704

== ENCOUNTER 2023-08-26 08:53 | Emergency (ER) | payer MEDICARE, OTHER, SELFPAY ==
[2023-08-26 09:13] VITALS: BP 133/73; PULSE 76; RESP 16; TEMP 37; O2SAT 98; BMI 21.0
--- NOTE | 2023-08-26 09:21 | DI.CT.S_ITS ---
PROCEDURE: CT ANGIO HEAD AND NECK INDICATIONS: Recent aneurysm surgery TECHNIQUE: After the administration of intravenous contrast, 1 mm thick sections acquired from the aortic arch through the [place] of [place]. 3-dimensional nrvkhsm-hzkiveric-pkokghzfoi (MIP) and/or volume rendering reformats were acquired of the central intracranial vasculature and neck separately. For radiation dose reduction, the following was used: automated exposure control, adjustment of mA and/or kV according to patient size. COMPARISON: [facility], CT, CT ANGIO HEAD AND NECK, 04/02/2023, 14:22. FINDINGS: Image quality: Diagnostic. BRAIN: CSF spaces: Ventricles are normal in size and shape. Basal cisterns are patent. No extra-axial fluid collections. Brain: No significant abnormality of the brain can be seen. Skull and face: Calvarium and facial bones appear intact, without suspicious lesions. Orbits appear normal. Sinuses: Prior sinus surgery as described on separate head CT. Mucosal thickening in both maxillary sinuses, left worse than right. HEAD CT ANGIOGRAPHY: Anterior circulation: Intracranial internal carotid arteries are normal in size and flow. There has been interval coiling of a prominent right supraclinoid ICA aneurysm. No new aneurysm. The flow within the paired anterior cerebral arteries is normal and symmetric. The flow within the middle cerebral arteries is normal and symmetric. The anterior communicating artery is seen. No aneurysms are seen. Posterior circulation: Visualized portions of the vertebral arteries demonstrate normal caliber, and join to form a normal appearing basilar artery. Right posterior communicating arteries patent. Flow within the posterior cerebral arteries is normal and symmetric. No aneurysms are seen. NECK CT ANGIOGRAPHY: Carotid system: The great vessels demonstrate a conventional anatomy as they arise from the aortic arch. The origins of the common carotid arteries appear patent. The common carotid arteries demonstrate normal caliber and courses. The bifurcation regions are both widely patent. The internal carotid arteries demonstrate normal calibers and courses. Posterior circulation: The origins of the vertebral arteries both appear widely patent. The more superior extracranial portions of both vertebral arteries also demonstrate normal courses and calibers. They join to form a normal appearing basilar artery. Soft tissues: Heterogeneous and mildly enlarged thyroid gland with a few left lobe punctate calcifications and hypodensities. Bones: No suspicious bony lesions. Mild multilevel degenerative disc changes in the cervical spine. Visualized cervical spine appears normally aligned. IMPRESSION: 1. 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 2. No evidence of acute arterial occlusion or new aneurysm. 3. No hemodynamically significant stenosis in carotid or vertebral arterial system in the neck. Any quantitative measurements of stenosis were performed using NASCET criteria. Dictated by: Mildred Toussaint M.D. on 08/26/2023 at 10:04 Approved by: Mildred Toussaint M.D. on 08/26/2023 at 10:14
--- NOTE | 2023-08-26 09:21 | DI.CT.S_ITS ---
PROCEDURE: CT HEAD/BRAIN WO CON INDICATIONS: recent aneurysm surgery TECHNIQUE: Noncontrast 4.5 mm thick angled axial sections acquired from the foramen magnum to the vertex, with coronal and sagittal reformats. For radiation dose reduction, the following was used: automated exposure control, adjustment of mA and/or kV according to patient size. COMPARISON: [facility], CT, CT HEAD/BRAIN WO CON, 03/01/2022, 12:08. FINDINGS: Image quality: Excellent. CSF spaces: Basal cisterns are patent. No extra-axial fluid collections. The ventricles are symmetric in size and shape. Brain: No intracranial bleeds or masses. There is cerebral volume loss for age, with resultant ventricular and sulcal prominence. Hyperdensity in beam hardening artifact in the right [id number]-[id number] from recent aneurysm coiling. There are periventricular and deep white matter chronic small vessel ischemic changes. There is intracranial internal carotid artery atherosclerosis. Skull and face: Calvarium and visualized facial bones appear intact, without suspicious lesions. Sinuses: Bilateral mastoid antrostomies and ethmoidectomy. Mild mucosal thickening in the bilateral maxillary sinuses. IMPRESSION: No CT evidence of acute intracranial process. Age-appropriate cerebral cortical volume loss and chronic microvascular ischemic changes. Surgical changes of aneurysm clipping without visible complication. Dictated by: Mildred Toussaint M.D. on 08/26/2023 at 9:54 Approved by: Mildred Toussaint M.D. on 08/26/2023 at 9:57
[2023-08-26 09:40] LABS: Add Manual Diff / Slide Review NO; Basophils Absolute Auto 0 /uL (0-100); Eosinophils Absolute Auto 200 /uL (0-450); Eosinophils Percent Auto 3.1 % (2-4); Hematocrit 42.4 % (36-46); Hemoglobin 14.3 g/dL (12.0-16.0); Lymphocytes Absolute Auto 1200 /uL (1100-4500); Lymphocytes Percent Auto 23.4 % (25-40); Mean Corpuscular HGB Conc 33.8 % (30-36); Mean Corpuscular Hemoglobin 33.6 PG (26-34); Mean Corpuscular Volume 99.6 fL (80-100); Monocytes Absolute Auto 600 /uL (0-900); Monocytes Percent Auto 12.6 % (3-14); Neutrophils Absolute Auto 2900 /uL (1500-7000); Neutrophils Percent Auto 59.9 % (50-75); Platelet Count 202 X10^3/uL (150-400); Red Blood Cell Count 4.26 X10^6/uL (4.0-5.2); Red Cell Distribution Width 13.1 % (11.6-14.8); White Blood Cell Count 4.9 X10^3/uL (4.5-11.0)
[2023-08-26 09:57] LABS: Alanine Aminotransferase 17 IU/L (<35); Albumin Globulin Ratio 1.1 (1.0-2.8); Alkaline Phosphatase 56 U/L (38-126); Aspartate Aminotransferase 30 IU/L (14-36); BUN Creatinine Ratio 37.8 (6-22); Bilirubin Total 0.6 mg/dL (0.2-1.3); Blood Urea Nitrogen 31 mg/dL (7-17); Calcium 9.8 mg/dL (8.4-10.2); Carbon Dioxide 28 mmol/L (22-32); Chloride 103 mmol/L (98-107); Estimated Glomerular Filt Rate > 60 mL/min (>60); Globulin 3.5 g/dL (1.7-4.1); Glucose 88 mg/dL (80-110); HEMOLYSIS 39 (0-50); Potassium 4.3 mmol/L (3.4-5.1); Sodium 138 mmol/L (137-145); Total Protein 7.5 g/dL (6.3-8.2)
[2023-08-26 12:50] VITALS: BP 177/81; PULSE 66; O2SAT 100
[2023-08-26 14:04] VITALS: BP 132/78; PULSE 64; RESP 16; O2SAT 99
--- NOTE | 2023-08-26 14:33 | ED.HA ---
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 presents to the ED with continued headaches. Patient states that she is experiencing almost daily headaches which seem to come on at about 4:00 p.m., she takes Cafergot with minimal relief. Patient also does take some Tylenol with no relief at all. Patient contacted her doctor who performed the aneurysm repair at [facility], he recommended she be evaluated in the ED and obtain CT scans. Patient states that her headaches are similar to the prior headaches she has had in the past. Patient denies any nausea or vomiting. Patient denies any vision changes. Related Data Home Medications Medication Instructions Recorded Confirmed loteprednol etabonate 0.5 % eye See Rx Instructions .Route .COMPLEX 02/02/19 07/24/23 drops,suspension (Lotemax) cholecalciferol (vitamin D3) 10 10 mcg PO DAILY 05/04/21 07/24/23 mcg (400 unit) capsule coenzyme Q10 100 mg capsule (Co 100 mg PO DAILY 05/04/21 07/24/23 Q-10) multivitamin (One-A-Day Essential 1 tab PO DAILY 05/04/21 07/24/23 tablet) calcium acetate PO 01/21/23 01/21/23 Previous Rx's Medication Instructions Recorded nadolol 40 mg tablet 40 mg PO DAILY #90 tabs 01/21/23 omeprazole 20 mg capsule,delayed See Rx Instructions .Route 03/15/23 release .COMPLEX #180 caps fluticasone propionate 50 1 spray intranasal BID #19.2 grams 04/01/23 mcg/actuation nasal spray,suspension ezetimibe 10 mg tablet See Rx Instructions .Route 07/31/23 .COMPLEX #90 tabs ergotamine 1 mg-caffeine 100 mg See Rx Instructions .Route 08/08/23 tablet .COMPLEX #15 tabs Allergies Allergy/AdvReac Type Severity Reaction Status Date / Time dichloralphenazone Allergy Mild unknown Verified 08/26/23 09:20 [From MIDRIN] erythromycin base Allergy Mild rash Verified 08/26/23 09:20 [From E-MYCIN] isometheptene [From MIDRIN] Allergy Mild unknown Verified 08/26/23 09:20 metronidazole [From FLAGYL] Allergy Mild unknown Verified 08/26/23 09:20 nitrofurantoin Allergy Mild rash Verified 08/26/23 09:20 [From MACRODANTIN] Sulfa (Sulfonamide Allergy Mild RASH/FEVER Verified 08/26/23 09:20 Antibiotics) [SULFA (SULFONAMIDE ANTIBIOTICS)] doxycycline Allergy Unknown Verified 08/26/23 09:20 fexofenadine [From Negra] AdvReac Intermediate worsens Verified 08/26/23 09:20 migraine loratadine [From Claritin] AdvReac Intermediate worsens Verified 08/26/23 09:20 migraine aspirin AdvReac upset Verified 08/26/23 09:20 stomach Review of Systems <Connie Crystal PA-C - Last Filed: 08/26/23 14:40> Constitutional Constitutional: Denies chills, Denies fatigue, Denies fever(s), Denies frequent falls, Reports headache(s), Denies lethargy and Denies weakness Eyes Eyes: Denies change in vision, Denies eye discharge, Denies irritation and Denies loss of vision ENT Ears, Nose, Mouth, and Throat: Denies change in voice, Denies dizziness, Reports headache(s), Denies neck pain, Denies sore throat and Denies throat swelling Cardiovascular Cardiovascular: Denies chest pain, Denies irregular heart rhythm, Denies lightheadedness, Denies palpitations, Denies dyspnea, Denies dyspnea on exertion and Denies orthopnea Respiratory Respiratory: Denies cough, Denies dyspnea, Denies dyspnea on exertion and Denies wheezing Gastrointestinal Gastrointestinal: Denies abdominal pain, Denies change in bowel habits, Denies diarrhea, Denies nausea and Denies vomiting Musculoskeletal Musculoskeletal: Denies neck pain and Denies numbness Integumentary/Breasts Skin/Breast: Denies pruritus, Denies erythema, Denies rash and Denies wounds Neurologic Neurologic: Denies behavioral changes, Denies confusion, Denies dizziness, Denies frequent falls, Reports headache(s), Denies loss of vision, Denies numbness and Denies weakness Psychiatric Psychiatric: Denies anxiety, Denies behavioral changes, Denies confusion, Denies depression, Denies homicidal ideation and Denies suicidal ideation Endocrine Endocrine: Denies fatigue, Denies flushing and Denies palpitations Hematologic/Lymphatic Hematologic/Lymphatic: Denies easy bruising Allergic/Immunologic Allergic/Immunologic: Denies urticaria, Denies throat swelling and Denies wheezing Patient History <Connie Crystal PA-C - Last Filed: 08/26/23 14:40> Medical History (Updated 08/26/23 @ 15:28 by Margarita Sinclair RN) Hypertension Positive BRAULIO (antinuclear antibody) 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 Hip fracture (~11/07/21) Lactose intolerance Mild cognitive impairment House dust mite allergy Supraspinatus tendon tear Left wrist fracture Right shoulder pain Chronic kidney disease (CKD) stage G3a/A1, moderately decreased glomerular filtration rate (GFR) between 45-59 mL/min/1.73 square meter and albuminuria creatinine ratio less than 30 mg/g Impaired fasting glucose Rosacea Actinic keratosis Seasonal allergies Recurrent sinusitis Endometriosis GERD (gastroesophageal reflux disease) Osteoporosis Vertebral compression fracture Migraine headache without aura Surgical History Anesthesia History of esophagogastroduodenoscopy (EGD) History of colonoscopy History of sinus surgery Family History Father Cancer Mother Hypertension History of heart disease Brother Cancer Sister Cancer Grandmother Diabetes mellitus Grandmother No problems noted. Social History household members: none Smoking Status: Never smoker alcohol intake: current Smoking Status: Never smoker alcohol intake frequency: holidays/special occasions only Substance Use Type: does not use Exam <Connie Crystal PA-C - Last Filed: 08/26/23 14:40> Narrative Exam Narrative: Const General:?cooperative, healthy appearing and comfortable [facility] Head:?normal to inspection Ears:?hearing grossly normal bilaterally Nose:?external nose normal Face and sinus:?normal facial exam and sinuses nontender Mouth:?oral mucosae normal Throat:?posterior oropharynx normal Eyes General:?appearance normal, both eyes and all related structures Neck Neck:?normal visual inspection and no lymphadenopathy noted Resp Effort & Inspection:?normal respiratory effort Auscultation:?clear to auscultation bilaterally Cardio Rate:?regular rate Rhythm:?regular rhythm Neuro General:?patient alert, patient awake and patient oriented x3; PERRLA; CN 1 through 12 intact bilaterally; gait normal Initial Vital Signs Initial Vital Signs: Vital Signs Temperature 98.6 F 08/26/23 09:13 Pulse Rate 76 08/26/23 09:13 Respiratory Rate 16 08/26/23 09:13 Blood Pressure 133/73 08/26/23 09:13 Pulse Oximetry 98 08/26/23 09:13 Oxygen Delivery Method Room Air 08/26/23 09:13 <Aliyah Bruner DO - Last Filed: 08/26/23 18:50> Initial Vital Signs Initial Vital Signs: Vital Signs Temperature 98.6 F 08/26/23 09:13 Pulse Rate 76 08/26/23 09:13 Respiratory Rate 16 08/26/23 09:13 Blood Pressure 133/73 08/26/23 09:13 Pulse Oximetry 98 08/26/23 09:13 Oxygen Delivery Method Room Air 08/26/23 09:13 Course <Connie Crystal PA-C - Last Filed: 08/26/23 14:40> Orders Ordered: ED Orders 08/26/23 09:21 CT angio head and neck Stat CT head/brain wo con Stat 08/26/23 09:30 CBC Auto Diff [Complete Blood Count AUTO DIFF] Stat CMP [Comprehensive Metabolic Panel] Stat Vital Signs Vital signs: Vital Signs - 8 hr 08/26/23 12:50 08/26/23 14:04 Pulse Rate 66 64 Respiratory Rate 16 Blood Pressure 177/81 H 132/78 Pulse Oximetry 100 99 Oxygen Delivery Method Room Air Room Air <Aliyah Bruner DO - Last Filed: 08/26/23 18:50> Orders Ordered: ED Orders 08/26/23 09:21 CT angio head and neck Stat CT head/brain wo con Stat 08/26/23 09:30 CBC Auto Diff [Complete Blood Count AUTO DIFF] Stat CMP [Comprehensive Metabolic Panel] Stat Vital Signs Vital signs: Vital Signs - 8 hr 08/26/23 12:50 08/26/23 14:04 Pulse Rate 66 64 Respiratory Rate 16 Blood Pressure 177/81 H 132/78 Pulse Oximetry 100 99 Oxygen Delivery Method Room Air Room Air MDM - Headache <Connie Crystal PA-C - Last Filed: 08/26/23 14:40> Lab Data 08/26/23 09:30 08/26/23 09:30 Labs: Lab Results 08/26/23 Range/Units 09:30 WBC 4.9 (4.5-11.0) X10^3/uL RBC 4.26 (4.0-5.2) X10^6/uL Hgb 14.3 (12.0-16.0) g/dL Hct 42.4 (36-46) % MCV 99.6 (80-100) fL MCH 33.6 (26-34) PG MCHC 33.8 (30-36) % RDW 13.1 (11.6-14.8) % Plt Count 202 (150-400) X10^3/uL Neut % (Auto) 59.9 (50-75) % Lymph % (Auto) 23.4 L (25-40) % [place] % (Auto) 12.6 (3-14) % Eos % (Auto) 3.1 (2-4) % Baso % (Auto) 1.0 (0-2) % Neut # (Auto) 2900 (3422-5615) /uL Lymph # (Auto) 1200 (4217-6030) /uL [place] # (Auto) 600 (0-900) /uL Eos # (Auto) 200 (0-450) /uL Baso # (Auto) 0 (0-100) /uL Sodium 138 (137-145) mmol/L Potassium 4.3 (3.4-5.1) mmol/L Chloride 103 (98-107) mmol/L Carbon Dioxide 28 (22-32) mmol/L BUN 31 H (7-17) mg/dL Creatinine 0.82 (0.52-1.04) mg/dL Estimated GFR > 60 (>60) mL/min BUN/Creatinine Ratio 37.8 H (6-22) Glucose 88 (80-110) mg/dL Calcium 9.8 (8.4-10.2) mg/dL Total Bilirubin 0.6 (0.2-1.3) mg/dL AST 30 (14-36) IU/L ALT 17 (<35) IU/L Alkaline Phosphatase 56 (38-126) U/L Total Protein 7.5 (6.3-8.2) g/dL Albumin 4.0 (3.5-5.0) g/dL Globulin 3.5 (1.7-4.1) g/dL Albumin/Globulin Ratio 1.1 (1.0-2.8) MDM Narrative Medical decision making narrative: 87-year-old female with past medical history hypertension, migraines, hyperlipidemia, GERD, 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 presents to the ED with continued headaches. Obtained CT head and CTA head and neck with no acute findings today. Labs were within normal limits. It appears that patient's headache is most consistent with her usual migraines. In the ED, patient declined any medications since she does not have a headache currently. Recommend patient follow-up with her PCP Dr. Jimenez for further evaluation and treatment including migraine prophylaxis. Patient is also scheduled to see her neurosurgeon at [facility] on September 18. ED return precautions were discussed with patient. Patient verbalized understanding. Medical records reviewed: Yes <Aliyah Bruner, - Last Filed: 08/26/23 18:50> Lab Data Labs: Lab Results 08/26/23 Range/Units 09:30 WBC 4.9 (4.5-11.0) X10^3/uL RBC 4.26 (4.0-5.2) X10^6/uL Hgb 14.3 (12.0-16.0) g/dL Hct 42.4 (36-46) % MCV 99.6 (80-100) fL MCH 33.6 (26-34) PG MCHC 33.8 (30-36) % RDW 13.1 (11.6-14.8) % Plt Count 202 (150-400) X10^3/uL Neut % (Auto) 59.9 (50-75) % Lymph % (Auto) 23.4 L (25-40) % [place] % (Auto) 12.6 (3-14) % Eos % (Auto) 3.1 (2-4) % Baso % (Auto) 1.0 (0-2) % Neut # (Auto) 2900 (1660-4000) /uL Lymph # (Auto) 1200 (5334-1147) /uL [place] # (Auto) 600 (0-900) /uL Eos # (Auto) 200 (0-450) /uL Baso # (Auto) 0 (0-100) /uL Sodium 138 (137-145) mmol/L Potassium 4.3 (3.4-5.1) mmol/L Chloride 103 (98-107) mmol/L Carbon Dioxide 28 (22-32) mmol/L BUN 31 H (7-17) mg/dL Creatinine 0.82 (0.52-1.04) mg/dL Estimated GFR > 60 (>60) mL/min BUN/Creatinine Ratio 37.8 H (6-22) Glucose 88 (80-110) mg/dL Calcium 9.8 (8.4-10.2) mg/dL Total Bilirubin 0.6 (0.2-1.3) mg/dL AST 30 (14-36) IU/L ALT 17 (<35) IU/L Alkaline Phosphatase 56 (38-126) U/L Total Protein 7.5 (6.3-8.2) g/dL Albumin 4.0 (3.5-5.0) g/dL Globulin 3.5 (1.7-4.1) g/dL Albumin/Globulin Ratio 1.1 (1.0-2.8) Discharge Plan Departure Patient Disposition: Home Clinical Impression: Recurrent sinusitis Headache Qualifiers: Headache type: unspecified Headache chronicity pattern: episodic headache Intractability: not intractable Qualified Code(s): R51.9 - Headache, unspecified Instructions: DI for Headache Activity Restrictions/Additional Instructions: You were evaluated in the ED today for a headache. Your CT scans were without any acute findings today. It appears that your symptoms are likely due to a migraine. Please follow-up with your PCP Dr. Jimenez for further evaluation and migraine prophylaxis. Return to the ED if you have worsening symptoms, persistent vomiting. Prescriptions: No Action fluticasone propionate 50 mcg/actuation spray,suspension 1 spray NASAL BID Qty: 19.2 3RF ezetimibe 10 mg tablet See Rx Instructions .ROUTE .COMPLEX Qty: 90 0RF Dose Instruction: TAKE 1 TABLET DAILY Rx Instructions: TAKE 1 TABLET DAILY ergotamine-caffeine 1-100 mg tablet See Rx Instructions .ROUTE .COMPLEX Qty: 15 2RF Dose Instruction: TAKE 1 TABLET EVERY 30 MINUTES. MAXIMUM DAILY DOSE 3 TABLETS. DO NOT EXCEED 3 MG PER DAY OR 5 MG PER WEEK. Rx Instructions: TAKE 1 TABLET EVERY 30 MINUTES. MAXIMUM DAILY DOSE 3 TABLETS. DO NOT EXCEED 3 MG PER DAY OR 5 MG PER WEEK. omeprazole 20 mg capsule,delayed release(DR/EC) See Rx Instructions .ROUTE .COMPLEX Qty: 180 3RF Dose Instruction: TAKE 1 CAPSULE TWICE A DAY Rx Instructions: TAKE 1 CAPSULE TWICE A DAY Lotemax 0.5 % drops,suspension See Rx Instructions .ROUTE .COMPLEX Rx Instructions: does not know dosing calcium acetate PO nadolol 40 mg tablet 40 mg PO DAILY Qty: 90 3RF cholecalciferol (vitamin D3) 10 mcg (400 unit) capsule 10 mcg PO DAILY multivitamin [One-A-Day Essential] Tablet 1 tab PO DAILY coenzyme Q10 [Co Q-10] 100 mg capsule 100 mg PO DAILY Referrals: Cherie Jimenez DO [Primary Care Provider] - Stand Alone Forms: Patient Portal/API ED Sign-out <Aliyah Bruner DO - Last Filed: 08/26/23 18:50> Cosign ED Attending Gailature Attestation: I was immediately available in the department for consultation. Documentation has been reviewed.
== END 2023-08-26 14:43 | disposition home or self-care (01) ==
PROVIDERS: Emergency Medicine; Emergency Provider Student in an Organized Health Care Education/Training Program; PCP Family Medicine
DX: J32.9 Chronic sinusitis, unspecified (principal); R51.9 Headache, unspecified
CPT/HCPCS: 36415; 70450; 70496; 70498; 80053; 85025; 99284; Q9967

== ENCOUNTER → 2023-08-28 09:18 | Outpatient (CLI) | payer MEDICARE, OTHER, SELFPAY ==
--- NOTE | 2023-08-28 | DI.MG.S_ITS ---
BILATERAL DIGITAL SCREENING MAMMOGRAM 3D/2D WITH CAD: 08/28/2023 CLINICAL: Routine screening. Family history of breast cancer. Comparison is made to exams dated: 08/06/2022 mammogram, 08/02/2021 mammogram, 07/19/2020 mammogram, and 07/16/2019 mammogram - [facility]. Both breasts are heterogeneously dense, which may obscure small masses (category c / 51-75% glandular tissue). Current study was also evaluated with a Computer Aided Detection (CAD) system. There are benign calcifications in both breasts. No significant masses, calcifications, or other findings are seen in either breast. There has been no significant interval change. IMPRESSION: BENIGN There is no mammographic evidence of malignancy. A 1 year screening mammogram is recommended. This exam was interpreted at Station ID: [id number]. NOTE: For mammograms, a report in lay terms will be sent to the patient. Approximately 15% of breast malignancies will not be visualized mammographically. In the management of a palpable breast mass, a negative mammogram must not discourage biopsy of a clinically suspicious lesion. Electronically Signed By: Geronimo [email or web address]:08/28/2023 12:55:57 letter sent: Normal Exam ACR BI-RADS Category 2: Benign Finding(s) 3342F
== END ==
PROVIDERS: PCP Family Medicine; Referring Provider Family Medicine; Visit Provider Family Medicine
DX: Z12.31 Encounter for screening mammogram for malignant neoplasm of breast (principal); Z80.3 Family history of malignant neoplasm of breast
CPT/HCPCS: 77063; 77067

== ENCOUNTER 2023-11-23 09:07 | Emergency (ER) | payer MEDICARE, OTHER, SELFPAY ==
[2023-11-23 09:28] VITALS: PULSE 71; RESP 14; TEMP 36.7; O2SAT 99; BMI 20.3
[2023-11-23 11:24] VITALS: BP 138/76; RESP 18; TEMP 37; O2SAT 100
--- NOTE | 2023-11-23 11:39 | ED_ITS ---
HPI - Skin/Abscess/Foreign Bdy <Jaky Christian PA-C - Last Filed: 11/23/23 14:46> General Chief complaint: Skin/Abscess/Foreign Body Stated complaint: rash on face Time Seen by Provider: 11/23/23 09:22 Source: patient Mode of arrival: Ambulatory Limitations: no limitations History of Present Illness HPI narrative: Patient is an 88-year-old female who presents with 4 days of itching and rash to her face and scalp. She denies any new detergents, lotions, medications, shampoo or other products. She thinks the rash is slowly getting worse. It keeps her up at night because of the itching. It is worse over her bilateral cheeks and along the hairline just above her forehead. She has not tried any therapy aside from Neosporin, which did not help. She denies fever or chills, cough, fatigue, nausea or vomiting. Related Data Home Medications Medication Instructions Recorded Confirmed loteprednol etabonate 0.5 % eye See Rx Instructions .Route .COMPLEX 02/02/19 10/23/23 drops,suspension (Lotemax) cholecalciferol (vitamin D3) 10 10 mcg PO DAILY 05/04/21 10/23/23 mcg (400 unit) capsule coenzyme Q10 100 mg capsule (Co 100 mg PO DAILY 05/04/21 10/23/23 Q-10) multivitamin (One-A-Day Essential 1 tab PO DAILY 05/04/21 10/23/23 tablet) calcium acetate PO 01/21/23 10/23/23 Previous Rx's Medication Instructions Recorded nadolol 40 mg tablet 40 mg PO DAILY #90 tabs 01/21/23 omeprazole 20 mg capsule,delayed See Rx Instructions .Route 03/15/23 release .COMPLEX #180 caps fluticasone propionate 50 1 spray intranasal BID #19.2 grams 10/16/23 mcg/actuation nasal spray,suspension ergotamine tartrate 2 mg 2 mg sublingual ONCE PRN migraine 10/23/23 sublingual tablet headache #30 tabs food supplemt, lactose-reduced See Rx Instructions PO DAILY 10/23/23 (Ensure MAX Protein oral liquid) #55,440 mL mirtazapine 7.5 mg tablet 7.5 mg PO BEDTIME #30 tabs 10/23/23 ezetimibe 10 mg tablet See Rx Instructions .Route 10/30/23 .COMPLEX #90 tabs ergotamine 1 mg-caffeine 100 mg See Rx Instructions .Route 11/22/23 tablet .COMPLEX #15 tabs betamethasone valerate 0.1 % 1 applic topical BID #15 grams 11/23/23 topical cream Allergies Allergy/AdvReac Type Severity Reaction Status Date / Time dichloralphenazone Allergy Mild unknown Verified 11/23/23 09:30 [From MIDRIN] erythromycin base Allergy Mild rash Verified 11/23/23 09:30 [From E-MYCIN] isometheptene [From MIDRIN] Allergy Mild unknown Verified 11/23/23 09:30 metronidazole [From FLAGYL] Allergy Mild unknown Verified 11/23/23 09:30 nitrofurantoin Allergy Mild rash Verified 11/23/23 09:30 [From MACRODANTIN] Sulfa (Sulfonamide Allergy Mild RASH/FEVER Verified 11/23/23 09:30 Antibiotics) [SULFA (SULFONAMIDE ANTIBIOTICS)] doxycycline Allergy Unknown Verified 11/23/23 09:30 fexofenadine [From Negra] AdvReac Intermediate worsens Verified 11/23/23 09:30 migraine loratadine [From Claritin] AdvReac Intermediate worsens Verified 11/23/23 09:30 migraine aspirin AdvReac upset Verified 11/23/23 09:30 stomach Review of Systems <Jaky Christian PA-C - Last Filed: 11/23/23 14:46> Review of Systems ROS Unobtainable: All systems reviewed & are unremarkable except as noted in HPI and below Patient History <Jaky Christian PA-C - Last Filed: 11/23/23 14:46> Medical History History of fracture of left hip (~10/2021) Bloating Positive BRAULIO (antinuclear antibody) 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 Mild cognitive impairment House dust mite allergy Supraspinatus tendon tear Left wrist fracture Right shoulder pain Chronic kidney disease (CKD) stage G3a/A1, moderately decreased glomerular filtration rate (GFR) between 45-59 mL/min/1.73 square meter and albuminuria creatinine ratio less than 30 mg/g Impaired fasting glucose Rosacea Actinic keratosis Seasonal allergies Recurrent sinusitis Endometriosis GERD (gastroesophageal reflux disease) Osteoporosis Vertebral compression fracture Migraine headache without aura Surgical History Anesthesia History of esophagogastroduodenoscopy (EGD) History of colonoscopy History of sinus surgery Family History Father Cancer Mother Hypertension History of heart disease Brother Cancer Sister Cancer Grandmother Diabetes mellitus Grandmother No problems noted. Social History household members: none Smoking Status: Never smoker alcohol intake: current Smoking Status: Never smoker alcohol intake frequency: holidays/special occasions only Substance Use Type: does not use Exam <Jaky Christian PA-C - Last Filed: 11/23/23 14:46> Narrative Exam Narrative: GENERAL: 88 year old patient appears stated age. Well-developed patient, in no acute distress. NEURO: AOx3. HEAD: Atraumatic. Normocephalic. EYES: Pupils equal round and reactive. Extraocular motions intact. No scleral icterus. No injection or drainage. ENT: Nose without bleeding or purulent drainage. Airway patent. RESPIRATORY: No increased work of breathing SKIN: Dry erythematous maculopapular rash over bilateral cheeks. No visible rash under hair. No evidence of cellulitis, no drainage from the rash. Initial Vital Signs Initial Vital Signs: Vital Signs Temperature 98.1 F 11/23/23 09:28 Pulse Rate 71 11/23/23 09:28 Respiratory Rate 14 11/23/23 09:28 Pulse Oximetry 99 11/23/23 09:28 Oxygen Delivery Method Room Air 11/23/23 09:28 <Lily White MD - Last Filed: 11/23/23 17:42> Initial Vital Signs Initial Vital Signs: Vital Signs Temperature 98.1 F 11/23/23 09:28 Pulse Rate 71 11/23/23 09:28 Respiratory Rate 14 11/23/23 09:28 Pulse Oximetry 99 11/23/23 09:28 Oxygen Delivery Method Room Air 11/23/23 09:28 Course <Jaky Christian PA-C - Last Filed: 11/23/23 14:46> Vital Signs Vital signs: Vital Signs - 8 hr 11/23/23 11:24 Temperature 98.6 F Respiratory Rate 18 Blood Pressure 138/76 Pulse Oximetry 100 Oxygen Delivery Method Room Air <Lily White MD - Last Filed: 11/23/23 17:42> Vital Signs Vital signs: Vital Signs - 8 hr 11/23/23 11:24 Temperature 98.6 F Respiratory Rate 18 Blood Pressure 138/76 Pulse Oximetry 100 Oxygen Delivery Method Room Air MDM - Skin/Abscess/Foreign Bdy <Jaky Christian PA-C - Last Filed: 11/23/23 14:46> MDM Narrative Medical decision making narrative: Multiple etiologies for patient's symptoms considered including, but not limited to: Contact dermatitis, cellulitis No evidence of cellulitis or vesicular rash. Suspect contact dermatitis, unidentified source. Prescribed moderate potency topical steroid, not to be used more than 7 days. Patient has a follow up on Saturday with Dermatology and I advised her to address this at that time. Patient's symptoms improved over duration of stay with above-stated therapies. Findings and discharge diagnosis discussed with patient/family followed by verbalization of understanding Return precautions discussed with patient/family whom verbalize understanding of diagnosis and plan Discharge Plan Departure Patient Disposition: Home Clinical Impression: Pruritic rash Instructions: DI for Atopic Dermatitis-Adult Activity Restrictions/Additional Instructions: * I have prescribed a steroid cream for you to use twice daily on your face. Do not use this medication for more than 7 days. Please follow up with the dermatology PA during your scheduled appointment on Saturday to reassess if the steroid cream is helping. You can also take 1 Benadryl (25 mg) at bedtime which will help with itching and sleep. Please review your household products to make sure there are no new products such as detergent, soap, shampoo, lotion or other substances that could be causing this rash. *What to do: *Please continue to take your regular medications as directed. [x] New medication prescriptions sent to your pharmacy: [facility] [ ] New medication written as a paper prescription [ ] No new medications given *Please follow up with your primary care provider in 2-3 days, call for an appointment. Let them know you were seen in the Emergency Department and that we ask that you be seen in follow up. We will electronically transmit a record of today's note if your PCP is in our system *If you do not have a primary care provider please contact the [facility] Resource line at [phone]. They will ask some questions about your medical history and help get you set up with a doctor in the community. *Return to Emergency Department if you should have any new, worsening or concerning symptoms, such as [fever greater than 101 F, shaking chills, worsening pain, persistent vomiting or other concerning symptoms]. Prescriptions: New betamethasone valerate 0.1 % cream 1 applic topical BID Qty: 15 0RF Rx Instructions: apply thin layer over affected skin twice daily. do not use for more than 7 days. No Action fluticasone propionate 50 mcg/actuation spray,suspension 1 spray NASAL BID Qty: 19.2 3RF ezetimibe 10 mg tablet See Rx Instructions .ROUTE .COMPLEX Qty: 90 0RF Dose Instruction: TAKE 1 TABLET DAILY Rx Instructions: TAKE 1 TABLET DAILY ergotamine-caffeine 1-100 mg tablet See Rx Instructions .ROUTE .COMPLEX Qty: 15 2RF Dose Instruction: TAKE 1 TABLET EVERY 30 MINUTES. MAXIMUM DAILY DOSE 3 TABLETS. DO NOT EXCEED 3 MG PER DAY OR 5 MG PER WEEK. Rx Instructions: TAKE 1 TABLET EVERY 30 MINUTES. MAXIMUM DAILY DOSE 3 TABLETS. DO NOT EXCEED 3 MG PER DAY OR 5 MG PER WEEK. omeprazole 20 mg capsule,delayed release(DR/EC) See Rx Instructions .ROUTE .COMPLEX Qty: 180 3RF Dose Instruction: TAKE 1 CAPSULE TWICE A DAY Rx Instructions: TAKE 1 CAPSULE TWICE A DAY mirtazapine 7.5 mg tablet 7.5 mg PO BEDTIME Qty: 30 2RF Ensure MAX Protein Liquid See Rx Instructions PO DAILY Qty: 65723 3RF Rx Instructions: 1 (330mL) to 2 (660mL) orally daily; ergotamine tartrate 2 mg tablet, sublingual 2 mg sublingual ONCE MDD 4mg PRN (Reason: migraine headache) Qty: 30 2RF Rx Instructions: No not use same day as ergotamine w caffeine Lotemax 0.5 % drops,suspension See Rx Instructions .ROUTE .COMPLEX Rx Instructions: does not know dosing calcium acetate PO nadolol 40 mg tablet 40 mg PO DAILY Qty: 90 3RF cholecalciferol (vitamin D3) 10 mcg (400 unit) capsule 10 mcg PO DAILY multivitamin [One-A-Day Essential] Tablet 1 tab PO DAILY coenzyme Q10 [Co Q-10] 100 mg capsule 100 mg PO DAILY Referrals: Cherie Jimenez DO [Primary Care Provider] - Stand Alone Forms: Patient Portal/API ED Sign-out <Lily White MD - Last Filed: 11/23/23 17:42> Cosign ED Attending Cosignature Attestation: I did not see this patient. I was available all times for consultation.
== END 2023-11-23 11:47 | disposition home or self-care (01) ==
PROVIDERS: Emergency Provider Physician Assistant; PCP Family Medicine
DX: L28.2 Other prurigo (principal)
CPT/HCPCS: 99281

== ENCOUNTER → 2023-12-10 13:52 | Outpatient (CLI) | payer MEDICARE, OTHER, SELFPAY | PROVIDERS: PCP Family Medicine; Referring Provider Ophthalmology; Visit Provider Ophthalmology | DX: H00.15 Chalazion left lower eyelid (principal); H10.502 Unspecified blepharoconjunctivitis, left eye | CPT/HCPCS: 87070; 87077; 87147; 87186; 87205 ==

== ENCOUNTER 2024-01-15 12:41 | Emergency (ER) | payer MEDICARE, OTHER, SELFPAY ==
[2024-01-15] VITALS (11 sets, daily range): BP systolic 148–166; BP diastolic 70–79; PULSE 58–67; RESP 18; TEMP 36.2; O2SAT 97–100; BMI 20.3
--- NOTE | 2024-01-15 14:53 | DI.RAD.S_ITS ---
PROCEDURE: XR CERVICAL SPINE 2V OR 3V INDICATIONS: Left side pain TECHNIQUE: 4 view(s) of the cervical spine were acquired. COMPARISON: None. FINDINGS: Bones: No fractures or dislocations to the C7-T1 level. There are multilevel degenerative changes of the cervical spine with facet and uncovertebral arthropathy, disc height loss with degenerative endplate changes and spurring. This is most severe at C6-C7. The lateral masses of C1 appear intact on the odontoid view. No suspicious bony lesions. Diffusely decreased osseous mineralization. Soft tissues: No prevertebral soft tissue swelling. IMPRESSION: Multilevel degenerative changes of the cervical spine, most pronounced at C6-C7. Dictated by: Angelo Mensah M.D. on 01/15/2024 at 15:37 Approved by: Angelo Mensah M.D. on 01/15/2024 at 15:37
--- NOTE | 2024-01-15 14:59 | ED_ITS ---
HPI - Headache General Chief Complaint: Headache Stated Complaint: Migraine Time Seen by Provider: 01/15/24 14:45 Mode of arrival: Ambulatory History of Present Illness HPI Narrative: Patient here for left retro-orbital migraine headache for the past 1 week. It i s daily and constant. She is taking ergotamine for it. Headaches are not new migraines are not new. However patient developed left paracervical muscle pain for the past 1 week with this. No numbness tingling or weakness. No slurred speech or facial droop. Denies any injury to the neck or new activities or pillows or bedding. Increased pain with rotating her head to the right and increased pain with palpation Related Data Home Medications Medication Instructions Recorded Confirmed loteprednol etabonate 0.5 % eye See Rx Instructions .Route .COMPLEX 02/02/19 10/23/23 drops,suspension (Lotemax) cholecalciferol (vitamin D3) 10 10 mcg PO DAILY 05/04/21 10/23/23 mcg (400 unit) capsule coenzyme Q10 100 mg capsule (Co 100 mg PO DAILY 05/04/21 10/23/23 Q-10) multivitamin (One-A-Day Essential 1 tab PO DAILY 05/04/21 10/23/23 tablet) calcium acetate PO 01/21/23 10/23/23 Previous Rx's Medication Instructions Recorded omeprazole 20 mg capsule,delayed See Rx Instructions .Route 03/15/23 release .COMPLEX #180 caps fluticasone propionate 50 1 spray intranasal BID #19.2 grams 10/16/23 mcg/actuation nasal spray,suspension ergotamine tartrate 2 mg 2 mg sublingual ONCE PRN migraine 10/23/23 sublingual tablet headache #30 tabs food supplemt, lactose-reduced See Rx Instructions PO DAILY 10/23/23 (Ensure MAX Protein oral liquid) #55,440 mL mirtazapine 7.5 mg tablet 7.5 mg PO BEDTIME #30 tabs 10/23/23 ezetimibe 10 mg tablet See Rx Instructions .Route 10/30/23 .COMPLEX #90 tabs ergotamine 1 mg-caffeine 100 mg See Rx Instructions .Route 11/22/23 tablet .COMPLEX #15 tabs betamethasone valerate 0.1 % 1 applic topical BID #15 grams 11/23/23 topical cream nadolol 40 mg tablet 40 mg PO DAILY #30 tabs 01/07/24 baclofen 10 mg tablet 10 mg PO TID PRN muscle spasm #20 01/15/24 tabs Allergies Allergy/AdvReac Type Severity Reaction Status Date / Time dichloralphenazone Allergy Mild unknown Verified 01/15/24 12:54 [From MIDRIN] erythromycin base Allergy Mild rash Verified 01/15/24 12:54 [From E-MYCIN] isometheptene [From MIDRIN] Allergy Mild unknown Verified 01/15/24 12:54 metronidazole [From FLAGYL] Allergy Mild unknown Verified 01/15/24 12:54 nitrofurantoin Allergy Mild rash Verified 01/15/24 12:54 [From MACRODANTIN] Sulfa (Sulfonamide Allergy Mild RASH/FEVER Verified 01/15/24 12:54 Antibiotics) [SULFA (SULFONAMIDE ANTIBIOTICS)] doxycycline Allergy Unknown Verified 01/15/24 12:54 fexofenadine [From Negra] AdvReac Intermediate worsens Verified 01/15/24 12:54 migraine loratadine [From Claritin] AdvReac Intermediate worsens Verified 01/15/24 12:54 migraine aspirin AdvReac upset Verified 01/15/24 12:54 stomach Review of Systems Review of Systems Narrative: GENERAL: negative chills, fatigue, malaise, fever, sweats. HEENT: negative sinus pain, ear pain, sore throat RESPIRATORY: negative dyspnea, cough CARDIOVASCULAR: negative chest pain, palpitations GASTROINTESTINAL: negative nausea, vomiting, abdominal pain : negative dysuria, frequency, hematuria MUSCULOSKELETAL: Positive neck pain muscle or bony pain SKIN: negative rash, skin lesions NEUROLOGIC: negative weakness, numbness, positive headache ROS Unobtainable: All systems reviewed & are unremarkable except as noted in HPI and below Patient History Medical History History of fracture of left hip (~10/2021) Bloating Positive BRAULIO (antinuclear antibody) 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 Mild cognitive impairment House dust mite allergy Supraspinatus tendon tear Left wrist fracture Right shoulder pain Chronic kidney disease (CKD) stage G3a/A1, moderately decreased glomerular filtration rate (GFR) between 45-59 mL/min/1.73 square meter and albuminuria creatinine ratio less than 30 mg/g Impaired fasting glucose Rosacea Actinic keratosis Seasonal allergies Recurrent sinusitis Endometriosis GERD (gastroesophageal reflux disease) Osteoporosis Vertebral compression fracture Migraine headache without aura Surgical History Anesthesia History of esophagogastroduodenoscopy (EGD) History of colonoscopy History of sinus surgery Family History Father Cancer Mother Hypertension History of heart disease Brother Cancer Sister Cancer Grandmother Diabetes mellitus Grandmother No problems noted. Social History household members: none Smoking Status: Never smoker alcohol intake: current Smoking Status: Never smoker alcohol intake frequency: holidays/special occasions only Substance Use Type: does not use Exam Narrative Exam Narrative: GENERAL: in no distress, not toxic not dyspneic HEAD: Normocephalic. EYES: Pupils equal round ENT: Mucous membranes moist. NECK: Trachea midline. No midline tenderness or step-off of the cervical spine however there is reproducible left paracervical muscle tenderness and spasm with increased pain with rotating head to the right. CARDIOVASCULAR: Regular rate and rhythm RESPIRATORY: Clear to auscultation. Breath sounds equal bilaterally. No wheezes, rales, or rhonchi. EXTREMITIES: No gross deformities. BACK: No flank tenderness. NEURO: AOx4. 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 Fast exam is negativ e SKIN: Warm and dry PSYCH: Not anxious, is cooperative Initial Vital Signs Initial Vital Signs: Vital Signs Temperature 97.1 F L 01/15/24 12:54 Pulse Rate 65 01/15/24 12:54 Respiratory Rate 18 01/15/24 12:54 Blood Pressure 158/76 H 01/15/24 12:54 Pulse Oximetry 99 01/15/24 12:54 Oxygen Delivery Method Room Air 01/15/24 12:54 Course Orders Ordered: Discontinued Medications Acetaminophen (Acetaminophen 325 Mg Tablet) 975 mg PO NOW ONE Stop: 01/15/24 14:59 Last Admin: 01/15/24 15:18 Dose: 975 mg Documented By: RB Dexamethasone (Dexamethasone 4 Mg/Ml Vial) 4 mg IV NOW ONE Stop: 01/15/24 14:57 Last Admin: 01/15/24 15:18 Dose: 4 mg Documented By: RB Magnesium Sulfate (Magnesium Sulfate) 2 gm in 50 mls @ 25 mls/hr IV NOW ONE Stop: 01/15/24 16:55 Last Infusion: 01/15/24 16:57 Dose: Infused Documented By: EBEN Co-signed By: ANKITA Admin: 01/15/24 15:19 Dose: 25 mls/hr Documented By: RB Co-signed By: MLM Sodium Chloride (Normal Saline 0.9%) 1,000 mls @ 1,000 mls/hr IV BOLUS ONE Stop: 01/15/24 15:55 Last Infusion: 01/15/24 16:36 Dose: Infused Documented By: Admin: 01/15/24 15:18 Dose: 1,000 mls/hr Documented By: ANKITA Vital Signs Vital signs: Vital Signs - 8 hr 01/15/24 12:54 01/15/24 15:17 01/15/24 15:24 Temperature 97.1 F L Pulse Rate 65 65 61 Respiratory Rate 18 Blood Pressure 158/76 H Pulse Oximetry 99 97 99 Oxygen Delivery Method Room Air 01/15/24 15:24 01/15/24 15:30 01/15/24 15:30 Temperature Pulse Rate 62 Respiratory Rate Blood Pressure 164/77 H 155/76 H Pulse Oximetry 100 Oxygen Delivery Method 01/15/24 15:45 01/15/24 15:45 01/15/24 16:00 Temperature Pulse Rate 59 L 59 L Respiratory Rate Blood Pressure 151/70 H Pulse Oximetry 99 99 Oxygen Delivery Method 01/15/24 16:00 01/15/24 16:15 01/15/24 16:15 Temperature Pulse Rate 62 Respiratory Rate Blood Pressure 151/71 H 152/76 H Pulse Oximetry 99 Oxygen Delivery Method 01/15/24 16:30 01/15/24 16:30 Temperature Pulse Rate 58 L Respiratory Rate Blood Pressure 153/72 H Pulse Oximetry 98 Oxygen Delivery Method MDM - Headache Imaging Data X-ray cervical spine: Radiologist's Impression: [address] [address] XRay Report Signed Patient: Emily Mathias MR#: [id number] : 1935 Acct:[id number] Age/Sex: 88 / F Date of Service: 01/15/24 Loc: ED Accession Number: [id number] Procedure: XR cervical spine 2V or 3V Ordering Provider: Srinivasan Alanis MD PROCEDURE: XR CERVICAL SPINE 2V OR 3V INDICATIONS: Left side pain TECHNIQUE: 4 view(s) of the cervical spine were acquired. COMPARISON: None. FINDINGS: Bones: No fractures or dislocations to the C7-T1 level. There are multilevel degenerative changes of the cervical spine with facet and uncovertebral arthropathy, disc height loss with degenerative endplate changes and spurring. This is most severe at C6-C7. The lateral masses of C1 appear intact on the odontoid view. No suspicious bony lesions. Diffusely decreased osseous mineralization. Soft tissues: No prevertebral soft tissue swelling. IMPRESSION: Multilevel degenerative changes of the cervical spine, most pronounced at C6-C7. Dictated by: Angelo Mensah M.D. on 01/15/2024 at 15:37 Approved by: Angelo Mensah M.D. on 01/15/2024 at 15:37 [facility] Narrative Medical decision making narrative: Patient here for left retro-orbital migraine headache for the past 1 week. It is daily and constant. She is taking ergotamine for it. Headaches are not new migraines are not new. However patient developed left paracervical muscle pain for the past 1 week with this. No numbness tingling or weakness. No slurred s peech or facial droop. Denies any injury to the neck or new activities or pillows or bedding. Increased pain with rotating her head to the right and increased pain with palpation After history and exam magnesium normal saline Decadron x-ray cervical spine [facility] Medical records reviewed: No recent visit for this complaint Differential considered: Includes but not limited to cervical strain cervical radiculopathy migraine headache Lab Test results independently reviewed as above. Pertinent findings: None indicated Independently reviewed EKG none indicated Imaging studies independently reviewed: X-ray cervical spine degenerative disc disease noted Consultations: None indicated at this time Treatments: Decadron magnesium normal saline Re-evaluations: 5:15 p.m.. Headache has resolved. Patient feels much better. The left neck muscle pain is much better. She is able to rotate her head right and left with less pain. Especially to the right is improved. Reviewed results with patient. They are reassuring. Likely the persistent left retro-orbital headache likely causing discomfort to the left side of the neck. Prescription for baclofen has been provided. Return precautions reviewed. She desires discharge home Discussion: Appropriate for discharge home. Exam is reassuring. Headache resolved after conservative treatment as well as left neck muscle spasm has improved. Moving her neck much easier now. Prescription for baclofen and provided. Patient could not receive Toradol due to medication allergy. Patient is driving. 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 However feeling much better at time of discharge and desires discharge home. Return precautions reviewed. Patient does understand may need MRI of the cervical spine if not improving. At this time likely not aneurysm or intracranial bleed. No other images indicated. No CT head or angiogram indicated. This is patient's typical retro-orbital left- sided headache with likely muscle spasm of the left paracervical muscles. Return precautions reviewed. She desires discharge home Diagnosis: Migraine headache/cervical muscle spasm Discharge Plan Departure Patient Disposition: Home Clinical Impression: Cervical muscle pain Migraine Qualifiers: Migraine type: unspecified Status migrainosus presence: with status migrainosus Intractability: not intractable Qualified Code(s): G43.901 - Migraine, unspecified, not intractable, with status migrainosus Instructions: DI for Migraine, DI for Muscle Spasm Activity Restrictions/Additional Instructions: I am glad you are feeling better. We were able to relieve view of your migraine headache. The neck muscle pain likely caused by tension from the headache since this headache lasted longer than usual. Muscle relaxer has been prescribed and sent to your pharmacy to sweet pickle maker tonight. No driving or operating machinery when taking this medication. Please see your family doctor this week for re-evaluation. Your x-ray of your cervical spine looks reassuring however you may need MRI of the cervical spine/neck to evaluate for any pinched nerves. You can arrange this with your family doctor. Return if worse if any questions or concerns Prescriptions: New baclofen 10 mg tablet 10 mg PO TID PRN (Reason: muscle spasm) Qty: 20 0RF No Action fluticasone propionate 50 mcg/actuation spray,suspension 1 spray NASAL BID Qty: 19.2 3RF ezetimibe 10 mg tablet See Rx Instructions .ROUTE .COMPLEX Qty: 90 0RF Dose Instruction: TAKE 1 TABLET DAILY Rx Instructions: TAKE 1 TABLET DAILY ergotamine-caffeine 1-100 mg tablet See Rx Instructions .ROUTE .COMPLEX Qty: 15 2RF Dose Instruction: TAKE 1 TABLET EVERY 30 MINUTES. MAXIMUM DAILY DOSE 3 TABLETS. DO NOT EXCEED 3 MG PER DAY OR 5 MG PER WEEK. Rx Instructions: TAKE 1 TABLET EVERY 30 MINUTES. MAXIMUM DAILY DOSE 3 TABLETS. DO NOT EXCEED 3 MG PER DAY OR 5 MG PER WEEK. nadolol 40 mg tablet 40 mg PO DAILY Qty: 30 0RF omeprazole 20 mg capsule,delayed release(DR/EC) See Rx Instructions .ROUTE .COMPLEX Qty: 180 3RF Dose Instruction: TAKE 1 CAPSULE TWICE A DAY Rx Instructions: TAKE 1 CAPSULE TWICE A DAY mirtazapine 7.5 mg tablet 7.5 mg PO BEDTIME Qty: 30 2RF Ensure MAX Protein Liquid See Rx Instructions PO DAILY Qty: 16866 3RF Rx Instructions: 1 (330mL) to 2 (660mL) orally daily; ergotamine tartrate 2 mg tablet, sublingual 2 mg sublingual ONCE MDD 4mg PRN (Reason: migraine headache) Qty: 30 2RF Rx Instructions: No not use same day as ergotamine w caffeine Lotemax 0.5 % drops,suspension See Rx Instructions .ROUTE .COMPLEX Rx Instructions: does not know dosing calcium acetate PO cholecalciferol (vitamin D3) 10 mcg (400 unit) capsule 10 mcg PO DAILY multivitamin [One-A-Day Essential] Tablet 1 tab PO DAILY coenzyme Q10 [Co Q-10] 100 mg capsule 100 mg PO DAILY betamethasone valerate 0.1 % cream 1 applic topical BID Qty: 15 0RF Rx Instructions: apply thin layer over affected skin twice daily. do not use for more than 7 days. Referrals: Cherie Jimenez DO [Primary Care Provider] - Stand Alone Forms: Patient Portal/API
[2024-01-15] MEDS: SODIUM CHLORIDE 0.9% 1,000 ML 1000 ML IV (15:18)
[2024-01-15] MEDS: DEXAMETHASONE 4 MG/ML VIAL IV (15:18)
[2024-01-15] MEDS: ACETAMINOPHEN 325 MG TABLET 975 MG PO (15:18)
[2024-01-15] MEDS: MAGNESIUM SULFATE 2 GM/50 ML PIGGYBACK IV (15:19)
--- NOTE | 2024-01-15 16:36 | PC.NURSE ---
This RN performed a check on patient. This patient is currently sleeping as evidenced due to snoring and equal rise and fall of the chest. This RN assessed pain through FLACC scale and recorded it. Patient not disturbed and allowed to continue sleeping.
== END 2024-01-15 17:41 | disposition home or self-care (01) ==
PROVIDERS: Emergency Provider Emergency Medicine; PCP Family Medicine
DX: G43.901 Migraine, unspecified, not intractable, with status migrainosus (principal); M54.2 Cervicalgia
CPT/HCPCS: 36415; 72040; 96361; 96374; 99284; J1100; J3475

== ENCOUNTER → 2024-01-22 11:29 | Outpatient (CLI) | payer MEDICARE, OTHER, SELFPAY ==
[2024-01-22 13:48] LABS: Creatinine Urine Random 40.9 mg/dL
[2024-01-22 13:54] LABS: Microalbumin Urine Random < 0.6 mg/dL (0-1.6)
== END ==
PROVIDERS: PCP Family Medicine; Visit Provider Family Medicine
DX: I10 Essential (primary) hypertension (principal)
CPT/HCPCS: 82043; 82570

== ENCOUNTER → 2024-06-27 10:41 | Outpatient (CLI) | payer MEDICARE, OTHER, SELFPAY ==
--- NOTE | 2024-06-27 10:43 | DI.CT.S_ITS ---
PROCEDURE: CT SINUS SCREEN WO CON INDICATIONS: Recurrent sinus symptoms - no improvement w/antibiotics TECHNIQUE: Noncontrast 3.0 mm axial images acquired from the frontal sinuses to the mid-sella, with coronal and sagittal reformats. For radiation dose reduction, the following was used: automated exposure control, adjustment of mA and/or kV according to patient size. COMPARISON: [facility], CT, CT SINUS SCREEN WO CON, 03/01/2022, 12:08. FINDINGS: Image quality: Excellent. Sinuses: Postsurgical sinus changes are present. Maxillary antrectomies are clear. There has been resection of the inferior left nasal turbinates. Appearance of bilateral maxillary sinus mucosal thickening remains present although minimally decreased compared to prior exam notably on the right. No fluid levels are identified. Miscellaneous: Visualized intra-orbital contents are normal. No elvis bullosa or paradoxical turbinate curvature. No nasal septal deviation. IMPRESSION: Relatively stable appearance of postsurgical sinus changes with minimally decreased mucosal thickening within the right maxillary sinus. Dictated by: Susan Lyles M.D. on 06/29/2024 at 10:43 Approved by: Susan Lyles M.D. on 06/29/2024 at 10:45
== END ==
LOC: CT 10:42
PROVIDERS: PCP Family Medicine; Referring Provider Physician Assistant; Visit Provider Physician Assistant
DX: R51.9 Headache, unspecified (principal); J32.9 Chronic sinusitis, unspecified
CPT/HCPCS: 70486

== ENCOUNTER → 2024-07-20 09:57 | Outpatient (CLI) | payer MEDICARE, OTHER, SELFPAY ==
[2024-07-20 10:46] LABS: Influenza A - CEPHEID Flu A NEGATIVE (NEGATIVE); Influenza B - CEPHEID Flu B NEGATIVE (NEGATIVE); Respiratory Syncytial Virus Negative (Negative)
[2024-07-20 10:47] LABS: COVID-19 CEPHEID 4-PLEX PCR POSITIVE (Negative)
== END ==
PROVIDERS: PCP Family Medicine; Visit Provider Nurse Practitioner Family
DX: R05.1 Acute cough (principal)
CPT/HCPCS: 0241U

== ENCOUNTER → 2024-09-17 11:10 | Outpatient (CLI) | payer MEDICARE, OTHER, SELFPAY ==
--- NOTE | 2024-09-17 | DI.MG.S_ITS ---
BILATERAL DIGITAL SCREENING MAMMOGRAM 3D/2D WITH CAD: 09/17/2024 CLINICAL: Routine screening. Family history of breast cancer. Comparison is made to exams dated: 08/28/2023 mammogram, 08/06/2022 mammogram, and 08/02/2021 mammogram - [facility]. The breasts are heterogeneously dense, which may obscure small masses (category c / 51-75% glandular tissue). Current study was also evaluated with a Computer Aided Detection (CAD) system. No significant masses, calcifications, or other findings are seen in either breast. There has been no significant interval change. IMPRESSION: NEGATIVE There is no mammographic evidence of malignancy. A 1 year screening mammogram is recommended. This exam was interpreted at Station ID: [id number]. NOTE: For mammograms, a report in lay terms will be sent to the patient. Approximately 15% of breast malignancies will not be visualized mammographically. In the management of a palpable breast mass, a negative mammogram must not discourage biopsy of a clinically suspicious lesion. Electronically Signed By: Myesha Deal M.D., Ph.D. [place]/ami:09/19/2024 01:42:57 letter sent: Normal Exam ACR BI-RADS Category 1: Negative
== END ==
PROVIDERS: PCP Family Medicine; Referring Provider Family Medicine; Visit Provider Family Medicine
DX: Z12.31 Encounter for screening mammogram for malignant neoplasm of breast (principal); Z80.3 Family history of malignant neoplasm of breast; R92.333 Mammographic heterogeneous density, bilateral breasts
CPT/HCPCS: 77063; 77067

== ENCOUNTER → 2024-10-22 09:28 | Outpatient (CLI) | payer MEDICARE, OTHER, SELFPAY ==
[2024-10-22 10:29] LABS: Alanine Aminotransferase 18 IU/L (<35); Albumin 3.9 g/dL (3.5-5.0); Albumin Globulin Ratio 1.3 (1.0-2.8); Alkaline Phosphatase 68 U/L (38-126); Aspartate Aminotransferase 28 IU/L (14-36); Bilirubin Total 0.3 mg/dL (0.2-1.3); Blood Urea Nitrogen 38 mg/dL (7-17); Calcium 9.9 mg/dL (8.4-10.2); Carbon Dioxide 31 mmol/L (22-32); Chloride 105 mmol/L (98-107); Cholesterol 193 mg/dL (140-199); Estimated Glomerular Filt Rate 55 mL/min (>60); Globulin 2.9 g/dL (1.7-4.1); Glucose 89 mg/dL (80-110); HDL Cholesterol 67 mg/dL (40-60); HEMOLYSIS < 15 (0-50); LDL Cholesterol Calculated 103 mg/dL (<100); Potassium 4.9 mmol/L (3.4-5.1); Sodium 140 mmol/L (137-145); Total Protein 6.8 g/dL (6.3-8.2); Triglycerides 114 mg/dL (35-150)
== END ==
PROVIDERS: PCP Family Medicine; Referring Provider Family Medicine; Visit Provider Family Medicine
DX: E78.5 Hyperlipidemia, unspecified; N18.31 Chronic kidney disease, stage 3a; I12.9 Hypertensive chronic kidney disease with stage 1 through stage 4 chronic kidney disease, or unspecified chronic kidney disease
CPT/HCPCS: 36415; 80053; 80061

== ENCOUNTER → 2024-12-02 11:52 | Outpatient (CLI) | payer MEDICARE, OTHER, SELFPAY ==
--- NOTE | 2024-12-02 11:54 | DI.RAD.S_ITS ---
PROCEDURE: XR LUMBAR SPINE MIN 4V INDICATIONS: Peripheral neuropathy; weakness of right leg TECHNIQUE: 5 views of the lumbar spine acquired, including flexion and extension views. COMPARISON: None. FINDINGS: Lumbar spine curvature and alignment: Mild levoscoliosis of the lumbar spine appreciated. Bones: There are no osseous abnormalities. Disc spaces: Moderate L2-3, severe L3-4 L4-5 and moderate L5-S1 degenerative disc disease noted. Moderate L4-5 and severe L5-S1 degenerative facet disease also noted Soft tissues: No soft tissue swelling, calcification or mass. IMPRESSION: Degeneration Dictated by: Kevin Fleming M.D. on 12/03/2024 at 11:42 Approved by: Kevin Fleming M.D. on 12/03/2024 at 11:43
[2024-12-02 15:48] LABS: Vitamin B12 928 pg/mL (239-931)
== END ==
PROVIDERS: PCP Family Medicine; Referring Provider Physician Assistant; Visit Provider Physician Assistant
DX: G62.9 Polyneuropathy, unspecified (principal); R29.898 Other symptoms and signs involving the musculoskeletal system; M51.369 Other intervertebral disc degeneration, lumbar region without mention of lumbar back pain or lower extremity pain
CPT/HCPCS: 36415; 72110; 82607

== ENCOUNTER → 2024-12-10 08:11 | Outpatient (CLI) | payer MEDICARE, OTHER, SELFPAY ==
--- NOTE | 2024-12-10 08:13 | DI.MRI.S_ITS ---
PROCEDURE: MR LUMBAR SPINE WO CON INDICATIONS: New onset neuropathy and weakness RLE TECHNIQUE: Noncontrast sagittal T1 spin echo and T2 fast echo, sagittal STIR, and T2 fast spin echo through the lumbar spine. In cases with scoliosis, additional coronal T2 fast spin echo may be performed. COMPARISON: [facility], CR, XR LUMBAR SPINE MIN 4V, 12/02/2024, 11:57. FINDINGS: Image quality: Excellent. Alignment and Curvature: There is normal bony alignment. Convex left curvature of the lumbar spine. Bone Marrow: Modic type 1 reactive endplate changes adjacent to the L5-S1 disc. No acute vertebral body compression fractures. Spinal Cord: Conus medullaris terminates at the L1 level. Visualized cord demonstrates normal signal and size. Paraspinous Soft Tissues: No paravertebral masses. T12-L1: Loss of disc signal. Mild, diffuse disc bulge. No central stenosis. No neural foraminal narrowing. No neural compression. L1-L2: Loss of disc signal. Mild, diffuse disc bulge. No central stenosis. Mild left neural foraminal narrowing. No neural compression. L2-L3: Loss of disc signal and height. Mild, diffuse disc bulge. Mild bilateral facet hypertrophy. Mild narrowing of the central canal. Mild bilateral neural foraminal narrowing. No neural compression. L3-L4: Loss of disc signal and height. Mild, diffuse disc bulge. Mild bilateral facet hypertrophy. Mild narrowing of the central canal. Mild bilateral neural foraminal narrowing. No neural compression L4-L5: Loss of disc signal. Moderate, diffuse disc bulge. Left central disc extrusion. Extruded disc material extends inferiorly into the left L5 lateral recess with compression of the left L5 nerve root. Mild bilateral facet hypertrophy. Mild narrowing of the central canal. Mild right neural foraminal narrowing. L5-S1: Loss of disc signal and height. Mild, diffuse disc bulge. Mild bilateral facet hypertrophy. No central stenosis. Moderate left neural foraminal narrowing. No neural compression. IMPRESSION: Mild convex left scoliosis. Multilevel degenerative disc disease. Multilevel facet arthropathy. L4-L5 left central disc extrusion which extends inferiorly into the left L5 lateral recess with compression of the left L5 nerve root. No severe central canal stenosis. No severe neural foraminal stenosis. Dictated by: Janneth Bardales MD, PhD on 12/10/2024 at 11:07 Approved by: Janneth Bardales MD, PhD on 12/10/2024 at 11:11
== END ==
PROVIDERS: PCP Family Medicine; Referring Provider Physician Assistant; Visit Provider Physician Assistant
DX: M51.379 Other intervertebral disc degeneration, lumbosacral region without mention of lumbar back pain or lower extremity pain (principal); M51.369 Other intervertebral disc degeneration, lumbar region without mention of lumbar back pain or lower extremity pain; M47.816 Spondylosis without myelopathy or radiculopathy, lumbar region; M47.817 Spondylosis without myelopathy or radiculopathy, lumbosacral region; M51.26 Other intervertebral disc displacement, lumbar region; M41.9 Scoliosis, unspecified; R29.898 Other symptoms and signs involving the musculoskeletal system; G62.9 Polyneuropathy, unspecified
CPT/HCPCS: 72148

== ENCOUNTER → 2025-04-05 09:45 | Outpatient (CLI) | payer MEDICARE, OTHER, SELFPAY ==
[2025-04-05 10:50] LABS: BUN Creatinine Ratio 50.5 (6-22); Blood Urea Nitrogen 47 mg/dL (7-17); Carbon Dioxide 29 mmol/L (22-32); Chloride 102 mmol/L (98-107); Estimated Glomerular Filt Rate 59 mL/min (>60); Glucose 87 mg/dL (70-99); HEMOLYSIS < 15 (0-50); Potassium 4.4 mmol/L (3.4-5.1); Sodium 139 mmol/L (137-145)
== END ==
PROVIDERS: Family Provider Family Medicine; PCP Family Medicine; Referring Provider Family Medicine; Visit Provider Family Medicine
DX: N18.31 Chronic kidney disease, stage 3a (principal)
CPT/HCPCS: 36415; 80048

== ENCOUNTER 2025-04-22 13:01 | Outpatient (CLI) | payer MEDICARE, OTHER, SELFPAY ==
[2025-04-22] VITALS (8 sets, daily range): BP systolic 125–174; BP diastolic 63–82; PULSE 65–80; RESP 11–16; TEMP 36.2; O2SAT 95–100
[2025-04-22] MEDS: MIDAZOLAM 2 MG/2 ML VIAL 1 MG IV (13:52)
[2025-04-22] MEDS: DEXAMETHASONE 10 MG/ML VIAL 20 MG INJ (13:58)
[2025-04-22] MEDS: BUPIVACAINE 0.25% (PF) VIAL 2 ML INJ (13:59)
[2025-04-22] MEDS: BETAMETHASONE 30 MG/5 ML MDV 12 MG INJ (13:59)
[2025-04-22] MEDS: BETAMETHASONE 30 MG/5 ML MDV 6 MG INJ (14:00)
--- NOTE | 2025-04-22 14:13 | P.PCN_ITS ---
Date/Time/Diagnoses Date of procedure: 04/22/25 Time of procedure: 14:13 Pre-procedure diagnosis: 1. FORAMINAL STENOSIS WITH LE SYMPTOMS Post-procedure diagnosis: same Procedure Notes Procedure: 1. FLUOROSCOPICALLY GUIDED CONTRAST CONTROLLED TRANSFORAMINAL EPIDURAL STEROID INJECTION - RIGHT L3/4 TFESI Indications: Emily is referred by Dr. Jimenez for treatment of Foraminal Stenosis with right LE Symptoms Physician: Yann Kraft Total Fluoroscopy time (seconds): 16 Total sedation minutes: 16 Complications: none Procedure in detail & Post-procedure care: FINDINGS Foraminal Nerve Root Compression secondary to disc disease and facet hypertrophy DESCRIPTION OF PROCEDURE Following review of allergy and review of potential side effects and complications, including, but not necessarily limited to, infection, allergic reaction, local tissue breakdown, stroke, temporary or permanent nerve injury, paralysis, and possible , the patient indicated that the patient understood and agreed to proceed. An informed consent document was signed by the patient, witnessed by a nurse, and placed in the patient's chart. Additionally, other treatment options including medications, modalities, and physical therapy were reviewed with the patient. After review of previous anaesthesic history and IV conscious sedation the patient was deemed safe to proceed with today?s procedure with IV conscious sedation as ASA class II designation. Safety time-out was performed to confirm patient ID, procedure to be performed and site of procedure. IV sedation was accomplished with a combination of 1mg of Versed was administered by the RN after DO order, titrated to patient comfort during the course of the procedure while the patient remained responsive to all verbal commands In the prone position following sterile prep and drape of the lumbar region, the right L3/4 posterior neuroforamen was identified fluoroscopically. The skin was anesthetized via a 25-gauge 1.5-inch needle with 1% lidocaine solution. At this point, a 25-gauge 3.5-inch spinal needle was atraumatically introduced and advanced under fluoroscopic guidance through the posterior right L3/4 neuroforamen to approximately the anterior aspect of the canal. Depth was confirmed on lateral view. Following negative aspiration, injection of approximately 1.5 cc of Isovue 200 under live fluoroscopy in the AP view conf irmed excellent flow along the nerve root, into the epidural space without vascular or intrathecal uptake observed Radiological data, including multiple fluoroscopic views of the lumbosacral spine, reveal a spinal needle at the right L3/4 posterior neuroforamen. Subsequent views show flow of contrast material flowing superiorly and inferiorly along the nerve root confirming epidural flow. Subsequently, a test dose of 1.5 cc of 0.25%marcaine solution was administered and patient was observed for two minutes for signs or symptoms of complications, including abdominal pain, shortness of breath, bilateral upper or lower extremity weakness, nausea and vomiting, prior to steroid injection. At this point, a total of 3cc or 10mg of dexamethasone and 12mg of betamethasone was injected without incident. The patient tolerated the procedure well without signs or symptoms of complications prior to transfer to the recovery area continued monitoring without incident. The patient was then transferred to the recovery area where they were observed for an appropriate time after the injection. The patient reported a VAS score of 7 prior to the procedure and a post-procedure VAS of 0. POST OP INSTRUCTIONS The patient was provided a Pain Log to continue to record their response to the target-specific procedure prior to follow-up visit with their referring p hysician. Additionally, specific post-injection care instructions and a contact number to our office were provided if concerns arise regarding possible complications associated with the procedure are suspected.
--- NOTE | 2025-04-22 14:14 | P.PCN_ITS ---
Date/Time/Diagnoses Date of procedure: 04/22/25 Time of procedure: 14:14 Pre-procedure diagnosis: 1. FORAMINAL STENOSIS WITH LE SYMPTOMS Post-procedure diagnosis: same Procedure Notes Procedure: 1. FLUOROSCOPICALLY GUIDED CONTRAST CONTROLLED TRANSFORAMINAL EPIDURAL STEROID INJECTION - LEFT L4/5 Indications: Emily is referred by Dr. Jimenez for treatment of Foraminal Stenosis with Left LE Symptoms Physician: Yann Kraft Total Fluoroscopy time (seconds): 16 Total sedation minutes: 16 Complications: none Procedure in detail & Post-procedure care: FINDINGS Foraminal Nerve Root Compression secondary to disc disease and facet hypertrophy DESCRIPTION OF PROCEDURE Following review of allergy and review of potential side effects and complications, including, but not necessarily limited to, infection, allergic reaction, local tissue breakdown, stroke, temporary or permanent nerve injury, paralysis, and possible , the patient indicated that the patient understood and agreed to proceed. An informed consent document was signed by the patient, witnessed by a nurse, and placed in the patient's chart. Additionally, other treatment options including medications, modalities, and physical therapy were reviewed with the patient. After review of previous anaesthesic history and IV conscious sedation the patient was deemed safe to proceed with today?s procedure with IV conscious sedation as ASA class II designation. Safety time-out was performed to confirm patient ID, procedure to be performed and site of procedure. IV sedation was accomplished with a combination of 1mg of Versed administered by the RN after DO order, titrated to patient comfort during the course of the procedure while the patient remained responsive to all verbal commands In the prone position following sterile prep and drape of the lumbar region, the left L4/5 posterior neuroforamen was identified fluoroscopically. The skin was anesthetized via a 25-gauge 1.5-inch needle with 1% lidocaine solution. At this point, a 25-gauge 3.5-inch spinal needle was atraumatically introduced and advanced under fluoroscopic guidance through the posterior left L4/5 neuroforamen to approximately the anterior aspect of the canal. Depth was confirmed on lateral view. Following negative aspiration, injection of approximately 1.5 cc of Isovue 200 under live fluoroscopy in the AP view confirmed excellent flow along the nerve root, into the epidural space without vascular or intrathecal uptake observed Radiological data, including multiple fluoroscopic views of the lumbosacral spine, reveal a spinal needle at the left L4/5 posterior neuroforamen. Subsequent views show flow of contrast material flowing superiorly and inferiorly along the nerve root confirming epidural flow. Subsequently, a test dose of 1.5cc of 0.25% marcaine solution was administered and patient was observed for two minutes for signs or symptoms of complications, including abdominal pain, shortness of breath, bilateral upper or lower extremity weakness, nausea and vomiting, prior to steroid injection. At this point, a total of 3cc or 10mg of dexamethasone and 12mg of betamethasone was injected without incident. The procedure tolerated the procedure well without signs or symptoms of complications prior to transfer to the recovery area continued monitoring without incident. The patient was then transferred to the recovery area where they were observed for an appropriate time after the injection. The patient reported a VAS score of 7 prior to the procedure and a post- procedure VAS of 0. POST OP INSTRUCTIONS The patient was provided a Pain Log to continue to record their response to the target-specific procedure prior to follow-up visit with their referring physician. Additionally, specific post-injection care instructions and a contact number to our office were provided if concerns arise regarding possible complications associated with the procedure are suspected.
== END 2025-04-22 14:30 | disposition home or self-care (01) ==
LOC: RAD 13:01
PROVIDERS: Family Provider Family Medicine; PCP Family Medicine; Referring Provider Physical Medicine & Rehabilitation; Visit Provider Physical Medicine & Rehabilitation
DX: M48.061 Spinal stenosis, lumbar region without neurogenic claudication (principal); M51.16 Intervertebral disc disorders with radiculopathy, lumbar region; M47.26 Other spondylosis with radiculopathy, lumbar region
CPT/HCPCS: 64483; 99152; J0702; J1100; J2250

== ENCOUNTER → 2025-10-02 09:53 | Outpatient (CLI) | payer MEDICARE, OTHER, SELFPAY ==
--- NOTE | 2025-10-02 09:54 | DI.MG.S_ITS ---
MM screening mammo BI: 10/02/2025. BI-RADS: 2 CLINICAL: 89-year old female for bilateral screening mammogram. No Tyrer-Cuzick risk score calculation due to patient's age being over 85 years old. No personal or first-degree family history of breast cancer. PRIOR EXAMS 09/17/2024, 08/28/2023, 08/06/2022, 08/02/2021. MAMMOGRAPHY TECHNIQUE: 2D and 3D (tomosynthesis) digital mammographic views obtained, with additional images as needed for full coverage. Current study was also evaluated with a Computer Aided Detection (CAD) system. DENSITY C. The breasts are heterogeneously dense, which may obscure small masses. MAMMOGRAPHY FINDINGS Bilateral: Benign-appearing calcifications noted. There are no suspicious masses, calcifications, or other findings in the breast. IMPRESSION: * No evidence of malignancy with benign findings. RECOMMENDATIONS Bilateral * Annual screening mammography. OVERALL ASSESSMENT CATEGORY BI-RADS-2: Benign. The [employer] recommends annual screening mammography beginning at age 40 for women with average risk of breast cancer. ELECTRONICALLY SIGNED: Vicente Spangler M.D. on 10/04/2025 at 06:53:13 PM PT Interpreting Station ID: [id number]
== END ==
PROVIDERS: Family Provider Family Medicine; PCP Family Medicine; Referring Provider Family Medicine; Visit Provider Family Medicine
DX: Z12.31 Encounter for screening mammogram for malignant neoplasm of breast (principal); R92.333 Mammographic heterogeneous density, bilateral breasts
CPT/HCPCS: 77063; 77067

== ENCOUNTER 2025-10-02 10:50 | Emergency (ER) | payer MEDICARE, OTHER, SELFPAY ==
--- NOTE | 2025-10-02 10:55 | ED.HA ---
HPI - Headache General Stated Complaint: [facility] ref: Worsening migraine Time Seen by Provider: 10/02/25 10:54 History of Present Illness HPI Narrative: Past medical history significant for migraine, carotid artery aneurysm, hypertension, CKD stage III, peripheral neuropathy, GERD, spinal stenosis. Related Data Home Medications ?Medication ?Instructions ?Recorded ?Confirmed loteprednol etabonate 0.5 % eye See Rx Instructions .Route .COMPLEX 02/02/19 09/01/25 drops,suspension (Lotemax) cholecalciferol (vitamin D3) 10 10 mcg PO DAILY 05/04/21 09/01/25 mcg (400 unit) capsule coenzyme Q10 100 mg capsule (Co 100 mg PO DAILY 05/04/21 09/01/25 Q-10) multivitamin (One-A-Day Essential 1 tab PO DAILY 05/04/21 09/01/25 tablet) calcium acetate PO 01/21/23 09/01/25 diclofenac sodium 1 % topical gel 4 g topical QID 12/02/24 09/01/25 (Voltaren Arthritis Pain) Previous Rx's ?Medication ?Instructions ?Recorded food supplemt, lactose-reduced See Rx Instructions PO DAILY 10/23/23 (Ensure MAX Protein oral liquid) #55,440 mL fluticasone propionate 50 1 spray intranasal BID #48 grams 02/17/25 mcg/actuation nasal spray,suspension ezetimibe 10 mg tablet See Rx Instructions .Route 04/05/25 .COMPLEX #90 tabs azelastine 137 mcg (0.1 %) nasal 2 spray intranasal BID PRN nasal 07/08/25 spray congestion, before possible viral exposure #30 mL gabapentin 300 mg capsule See Rx Instructions .Route 07/08/25 .COMPLEX #270 caps nadolol 40 mg tablet 40 mg PO DAILY #90 tabs 07/21/25 nortriptyline 10 mg capsule 10 mg PO BEDTIME #60 caps 09/07/25 omeprazole 20 mg capsule,delayed 20 mg PO BID #180 caps 09/08/25 release ergotamine 1 mg-caffeine 100 mg See Rx Instructions .Route 09/14/25 tablet .COMPLEX #30 tabs Allergies Allergy/AdvReac Type Severity Reaction Status Date / Time dichloralphenazone (From Allergy Mild unknown Verified 09/01/25 12:55 MIDRIN) erythromycin base (From Allergy Mild rash Verified 09/01/25 12:55 E-MYCIN) isometheptene (From MIDRIN) Allergy Mild unknown Verified 09/01/25 12:55 metronidazole (From FLAGYL) Allergy Mild unknown Verified 09/01/25 12:55 nitrofurantoin (From Allergy Mild rash Verified 09/01/25 12:55 MACRODANTIN) Sulfa (Sulfonamide Allergy Mild RASH/FEVER Verified 09/01/25 12:55 Antibiotics) (SULFA (SULFONAMIDE ANTIBIOTICS)) doxycycline Allergy Unknown Verified 09/01/25 12:55 fexofenadine (From Negra) AdvReac Intermediate worsens Verified 09/01/25 12:55 migraine loratadine (From Claritin) AdvReac Intermediate worsens Verified 09/01/25 12:55 migraine aspirin AdvReac upset Verified 09/01/25 12:55 stomach Patient History Medical History Actinic keratosis Bloating Chronic kidney disease (CKD) stage G3a/A1, moderately decreased glomerular filtration rate (GFR) between 45-59 mL/min/1.73 square meter and albuminuria creatinine ratio less than 30 mg/g Dry eye Endometriosis GERD (gastroesophageal reflux disease) History of fracture of left hip (~10/2021) House dust mite allergy Impaired fasting glucose Left wrist fracture Lumbar radiculopathy Migraine headache without aura Mild cognitive impairment Osteoporosis Positive BRAULIO (antinuclear antibody) Recurrent sinusitis Right shoulder pain Rosacea Scoliosis Seasonal allergies 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 Social History household members: none alcohol intake: current alcohol intake frequency: holidays/special occasions only Discharge Plan Departure Prescriptions: No Action fluticasone propionate 50 mcg/actuation spray,suspension 1 spray intranasal BID Qty: 48 3RF ezetimibe 10 mg tablet See Rx Instructions .ROUTE .COMPLEX Qty: 90 3RF Dose Instruction: TAKE 1 TABLET DAILY Rx Instructions: TAKE 1 TABLET DAILY nadolol 40 mg tablet 40 mg PO DAILY Qty: 90 1RF nortriptyline 10 mg capsule 10 mg PO BEDTIME MDD 2 MDD Qty: 60 0RF Rx Instructions: PLEASE START WITH 1-10MG CAP AT NIGHT. DO THAT FOR 5-7 NIGHTS. YOU CAN INCREASE TO 2-10MG AFTER THAT. CALL WITH UPDATE omeprazole 20 mg capsule,delayed release(DR/EC) 20 mg PO BID Qty: 180 1RF ergotamine-caffeine 1-100 mg tablet See Rx Instructions .ROUTE .COMPLEX Qty: 30 2RF Dose Instruction: TAKE 1 TABLET EVERY 30 MINUTES. MAXIMUM DAILY DOSE 3 TABLETS. DO NOT EXCEED 3 MG PER DAY OR 5 MG PER WEEK. Rx Instructions: TAKE 1 TABLET EVERY 30 MINUTES NEEDED FOR MIGRAINE. MAXIMUM DAILY DOSE 3 TABLETS. DO NOT EXCEED 3 MG PER DAY OR 5 MG PER WEEK. Ensure MAX Protein Liquid See Rx Instructions PO DAILY Qty: 19095 3RF Rx Instructions: 1 (330mL) to 2 (660mL) orally daily; diclofenac sodium [Voltaren Arthritis Pain] 1 % gel 4 g topical QID Rx Instructions: apply to single knee, ankle, foot; for foot includes sole/toes/top of foot gabapentin 300 mg capsule See Rx Instructions .ROUTE .COMPLEX Qty: 270 3RF Rx Instructions: 300mg with dinner, 600mg before bed; azelastine 137 mcg (0.1 %) spray,non-aerosol 2 spray intranasal BID PRN (Reason: nasal congestion, before possible viral exposure) Qty: 30 5RF Rx Instructions: administer into each nostril Lotemax 0.5 % drops,suspension See Rx Instructions .ROUTE .COMPLEX Rx Instructions: does not know dosing calcium acetate PO cholecalciferol (vitamin D3) 10 mcg (400 unit) capsule 10 mcg PO DAILY multivitamin [One-A-Day Essential] Tablet 1 tab PO DAILY coenzyme Q10 [Co Q-10] 100 mg capsule 100 mg PO DAILY Referrals: Cherie Jimenez DO [Primary Care Provider, Medical]
[2025-10-02 11:01] VITALS: BP 154/78; PULSE 66; RESP 16; TEMP 36.2; O2SAT 100; BMI 21.2
--- NOTE | 2025-10-02 11:21 | ED_ITS ---
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 Patient states that she has dealt with migraines for the majority of her life. She typically takes Cafergot for her migraines which works after the 1st dose. However for the last ?few weeks? the patient states that she has had persistent migraines that are almost daily. She describes some is pressure behind the right eye causing the right eye to tear and causing right-sided sinus congestion. This feels similar to prior migraines but it is more persistent. States that she has only been told to take up to 3 Cafergot a day or 5 a week and she has been taking more than this without relief in her symptoms. She had a small skin cancer removed from her right upper lip on Saturday of this week and has been taking Tylenol for that pain as well, last taken at 7:30 a.m. this morning, without relief of her migraine. She denies any head trauma, fevers, chills, neck pain, cough, flu-like symptoms, visual disturbance, dizziness, lightheadedness, chest pain, shortness of breath. Related Data Home Medications ?Medication ?Instructions ?Recorded ?Confirmed loteprednol etabonate 0.5 % eye See Rx Instructions .R oute .COMPLEX 02/02/19 09/01/25 drops,suspension (Lotemax) cholecalciferol (vitamin D3) 10 10 mcg PO DAILY 09/01/25 mcg (400 unit) capsule coenzyme Q10 100 mg capsule (Co 100 mg PO DAILY 09/01/25 Q-10) multivitamin (One-A-Day Essential 1 tab PO DAILY 05/0409/01/25 tablet) calcium acetate PO 01/21/23 09/01/25 diclofenac sodium 1 % topical gel 4 g topical QID 11/1409/01/25 (Voltaren Arthritis Pain) Previous Rx's ?Medication ?Instructions ?Recorded food supplemt, lactose-reduced See Rx Instructions PO DAILY 10/23/23 (Ensure MAX Protein oral liquid) #55,440 mL fluticasone propionate 50 1 spray intranasal BID #48 g briseyad 02/17/25 mcg/actuation nasal spray,suspension ezetimibe 10 mg tablet See Rx Instructions .Route 0 04/05/25 .COMPLEX #90 tabs azelastine 137 mcg (0.1 %) nasal 2 spray intranasal BI D PRN nasal 07/08/25 spray congestion, before possible viral exposure #30 mL gabapentin 300 mg capsule See Rx Instructions .Route 0 07/08/25 .COMPLEX #270 caps nadolol 40 mg tablet 40 mg PO DAILY #90 tabs /06/07 nortriptyline 10 mg capsule 10 mg PO BEDTIME #60 caps 09/07/25 omeprazole 20 mg capsule,delayed 20 mg PO BID #180 cap s 09/08/25 release ergotamine 1 mg-caffeine 100 mg See Rx Instructions .R oute 09/14/25 tablet .COMPLEX #30 tabs Allergies Allergy/AdvReac Type Severity Reaction Status Date / Time dichloralphenazone (From Allergy Mild unknown Verified 10/02/25 11:01 MIDRIN) erythromycin base (From Allergy Mild rash Verified 10/02/25 11:01 E-MYCIN) isometheptene (From MIDRIN) Allergy Mild unknown Verified 10/02/25 11:01 metronidazole (From FLAGYL) Allergy Mild unknown Verified 10/02/25 11:01 nitrofurantoin (From Allergy Mild rash Verified 10/02/25 11:01 MACRODANTIN) Sulfa (Sulfonamide Allergy Mild RASH/FEVER Verified 10/02/25 11:01 Antibiotics) (SULFA (SULFONAMIDE ANTIBIOTICS)) doxycycline Allergy Unknown Verified 10/02/25 11:01 fexofenadine (From Negra) AdvReac Intermediate worsens Verified 10/02/25 11:01 migraine loratadine (From Claritin) AdvReac Intermediate worsens Verified 10/02/25 11:01 migraine aspirin AdvReac upset Verified 10/02/25 11:01 stomach Review of Systems <Samara Greco PA-C - Last Filed: 10/02/25 16:55> Review of Systems ROS Unobtainable: All systems reviewed & are unremarkable except as noted in HPI and below Patient History <Samara Greco PA-C - Last Filed: 10/02/25 16:55> Medical History Scoliosis Lumbar radiculopathy Dry eye House dust mite allergy History of fracture of left hip (~10/2021) Bloating Positive BRAULIO (antinuclear antibody) 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 Mild cognitive impairment Supraspinatus tendon tear Left wrist fracture Right shoulder pain Chronic kidney disease (CKD) stage G3a/A1, moderately decreased glomerular filtration rate (GFR) between 45-59 mL/min/1.73 square meter and albuminuria creatinine ratio less than 30 mg/g Impaired fasting glucose Rosacea Actinic keratosis Seasonal allergies Recurrent sinusitis Endometriosis GERD (gastroesophageal reflux disease) Osteoporosis Vertebral compression fracture Migraine headache without aura Surgical History Anesthesia History of esophagogastroduodenoscopy (EGD) History of colonoscopy History of sinus surgery Family History Father Cancer Mother Hypertension History of heart disease Brother Cancer Sister Cancer Grandmother Diabetes mellitus Grandmother No problems noted. Social History household members: none Smoking Status: Former smoker alcohol intake: current Smoking Status: Former smoker alcohol intake frequency: holidays/special occasions only Exam <Samara Greco PA-C - Last Filed: 10/02/25 16:55> Narrative Exam Narrative: GENERAL: 89 year old patient appears stated age. Well-developed patient, in no acute distress. HEAD: Atraumatic. Normocephalic. EYES: PERRL. Extraocular motions intact. No scleral icterus. No injection or drainage. ENT: Nose without bleeding, purulent drainage. Uvula midline. Airway patent. NECK: Trachea midline. Cervical ROM intact. No midline cervical tenderness. CARDIOVASCULAR: Regular rate and rhythm. RESPIRATORY: ?Nonlabored respirations. ?Speaking in clear, full sentences. ?Clear to auscultation. Breath sounds equal bilaterally. No wheezes, rales, or rhonchi. ? NEURO: AOx3. ?Clear speech. ?Moves all 4 extremities appropriately. There is some drooping of the right upper eyelid compared to the left. Patient has equal facial movements, sensation intact to light touch throughout the face upper extremities and lower extremities. SKIN: No rash or erythema of visible areas Initial Vital Signs Initial Vital Signs: Vital Signs Temperature 97.1 F L 10/02/25 11:01 Pulse Rate 66 10/02/25 11:01 Respiratory Rate 16 10/02/25 11:01 Blood Pressure 154/78 H 10/02/25 11:01 Pulse Oximetry 100 10/02/25 11:01 Oxygen Delivery Method Room Air 10/02/25 11:01 <Amber Rivero MD - Last Filed: 10/04/25 01:03> Initial Vital Signs Initial Vital Signs: Vital Signs Temperature 97.1 F L 10/02/25 11:01 Pulse Rate 66 10/02/25 11:01 Respiratory Rate 16 10/02/25 11:01 Blood Pressure 154/78 H 10/02/25 11:01 Pulse Oximetry 100 10/02/25 11:01 Oxygen Delivery Method Room Air 10/02/25 11:01 Course <Samara Greco PA-C - Last Filed: 10/02/25 16:55> Orders Ordered: Discontinued Medications Dexamethasone (Dexamethasone 10 Mg/Ml Vial) 10 mg IV NOW ONE Stop: 10/02/25 11:35 Last Admin: 10/02/25 11:52 Dose: 10 mg Documented By: SAMI Magnesium Sulfate (Magnesium Sulfate) 2 gm in 50 mls @ 25 mls/hr IV NOW ONE Stop: 10/02/25 13:33 Last Infusion: 10/02/25 13:57 Dose: Infused Documented By: SAMI Co-signed By: YUDY Admin: 10/02/25 11:47 Dose: 25 mls/hr Documented By: SAMI Co-signed By: EBEN Sodium Chloride (Normal Saline 0.9%) 1,000 mls @ 1,000 mls/hr IV BOLUS ONE Stop: 10/02/25 12:35 Last Infusion: 10/02/25 12:28 Dose: Infused Documented By: Admin: 10/02/25 11:46 Dose: 1,000 mls/hr Documented By: SAMI Magnesium Sulfate (Magnesium Sulfate) 2 gm in 50 mls @ 25 mls/hr IV NOW ONE Stop: 10/02/25 13:59 Last Admin: 10/02/25 12:29 Dose: Not Given Documented By: SAMI Acetaminophen (Ofirmev) 1,000 mg in 100 mls @ 400 mls/hr IV NOW ONE Stop: 10/02/25 13:19 Last Infusion: 10/02/25 13:56 Dose: Infused Documented By: Admin: 10/02/25 13:09 Dose: 400 mls/hr Documented By: SAMI Ketorolac Tromethamine (Ketorolac 30 Mg/Ml Vial) 10 mg IV NOW ONE Stop: 10/02/25 14:50 Last Admin: 10/02/25 15:02 Dose: 10 mg Documented By: SAMI Vital Signs Vital signs: Vital Signs - 8 hr 10/02/25 11:01 10/02/25 14:46 Temperature 97.1 F L Pulse Rate 66 68 Respiratory Rate 16 20 Blood Pressure 154/78 H 176/82 H Pulse Oximetry 100 95 Oxygen Delivery Method Room Air Room Air <Amber Rivero MD - Last Filed: 10/04/25 01:03> Orders Ordered: Discontinued Medications Dexamethasone (Dexamethasone 10 Mg/Ml Vial) 10 mg IV NOW ONE Stop: 10/02/25 11:35 Last Admin: 10/02/25 11:52 Dose: 10 mg Documented By: SAMI Magnesium Sulfate (Magnesium Sulfate) 2 gm in 50 mls @ 25 mls/hr IV NOW ONE Stop: 10/02/25 13:33 Last Infusion: 10/02/25 13:57 Dose: Infused Documented By: SAMI Co-signed By: YUDY Admin: 10/02/25 11:47 Dose: 25 mls/hr Documented By: SAMI Co-signed By: EBEN Sodium Chloride (Normal Saline 0.9%) 1,000 mls @ 1,000 mls/hr IV BOLUS ONE Stop: 10/02/25 12:35 Last Infusion: 10/02/25 12:28 Dose: Infused Documented By: Admin: 10/02/25 11:46 Dose: 1,000 mls/hr Documented By: SAMI Magnesium Sulfate (Magnesium Sulfate) 2 gm in 50 mls @ 25 mls/hr IV NOW ONE Stop: 10/02/25 13:59 Last Admin: 10/02/25 12:29 Dose: Not Given Documented By: SAMI Acetaminophen (Ofirmev) 1,000 mg in 100 mls @ 400 mls/hr IV NOW ONE Stop: 10/02/25 13:19 Last Infusion: 10/02/25 13:56 Dose: Infused Documented By: Admin: 10/02/25 13:09 Dose: 400 mls/hr Documented By: SAMI Ketorolac Tromethamine (Ketorolac 30 Mg/Ml Vial) 10 mg IV NOW ONE Stop: 10/02/25 14:50 Last Admin: 10/02/25 15:02 Dose: 10 mg Documented By: SAMI Vital Signs Vital signs: Vital Signs - 8 hr 10/02/25 11:01 10/02/25 14:46 Temperature 97.1 F L Pulse Rate 66 68 Respiratory Rate 16 20 Blood Pressure 154/78 H 176/82 H Pulse Oximetry 100 95 Oxygen Delivery Method Room Air Room Air MDM - Headache <Samara Greco PA-C - Last Filed: 10/02/25 16:55> Medical Records Attestation: I reviewed the patient's medical records. Lab Data 10/02/25 11:10 10/02/25 11:10 Labs: Lab Results 10/02/25 Range/Units 11:10 WBC 4.8 (4.5-11.0) X10^3/uL RBC 4.43 (4.0-5.2) X10^6/uL Hgb 13.3 (12.0-16.0) g/dL Hct 39.9 (36-46) % MCV 90.0 (80-100) fL MCH 30.0 (26-34) PG MCHC 33.3 (30-36) % RDW 14.7 (11.6-14.8) % Plt Count 282 (150-400) X10^3/uL Neut % (Auto) 44.3 L (50-75) % Lymph % (Auto) 31.4 (25-40) % [place] % (Auto) 19.1 H (3-14) % Eos % (Auto) 3.8 (2-4) % Baso % (Auto) 1.4 (0-2) % Neut # (Auto) 2100 (6406-5456) /uL Lymph # (Auto) 1500 (1815-5344) /uL [place] # (Auto) 900 (0-900) /uL Eos # (Auto) 200 (0-450) /uL Baso # (Auto) 100 (0-100) /uL PT 10.7 (9.4-12.5) SECONDS INR 0.9 (0.9-1.3) APTT 29 (25.1-36.5) SECONDS Sodium 139 (137-145) mmol/L Potassium 4.7 (3.4-5.1) mmol/L Chloride 104 (98-107) mmol/L Carbon Dioxide 27 (22-32) mmol/L BUN 32 H (7-17) mg/dL Creatinine 0.98 (0.52-1.04) mg/dL Estimated GFR 56 L (>60) mL/min BUN/Creatinine Ratio 32.7 H (6-22) Glucose 90 (70-99) mg/dL Calcium 9.4 (8.4-10.2) mg/dL Total Bilirubin 0.2 (0.2-1.3) mg/dL AST 32 (14-36) IU/L ALT 21 (<35) IU/L Alkaline Phosphatase 73 (38-126) U/L Total Protein 7.7 (6.3-8.2) g/dL Albumin 4.1 (3.5-5.0) g/dL Globulin 3.6 (1.7-4.1) g/dL Albumin/Globulin Ratio 1.1 (1.0-2.8) Urine Dip Bedside Urine Glucose Negative Bedside Urine Bilirubin - Negative Bedside Urine Ketone - Negative Urine Specific Waves 1.010 Bedside Urine Occult Blood - Negative Bedside Urine pH 6.5 Bedside Urine Protein - Negative Bedside Urine Urobilinogen - Negative Bedside Urine Nitrite - Negative Bedside Urine Leukocytes - Negative Esterase Imaging Data CT scan - head: Radiologist's Impression: PROCEDURE: CT HEAD/BRAIN WO CON INDICATIONS: worsening R retro-orbital migraine x few weeks TECHNIQUE: Noncontrast 4.5 mm thick angled axial sections acquired from the foramen magnum to the vertex, with coronal and sagittal reformats. For radiation dose reduction, the following was used: automated exposure control, adjustment of mA and/or kV according to patient size. COMPARISON: [facility], CT, CT HEAD/BRAIN WO CON, 08/26/2023, 9:27. FINDINGS: Image quality: Diagnostic. CSF spaces: Basal cisterns are patent. No extra-axial fluid collections. The ventricles are symmetric in size and shape. Brain: Surgical clips is again seen in the region of right [id number]. No intracranial bleeds or mass effect. There is cerebral volume loss, with resultant ventricular and sulcal prominence. There are periventricular and deep white matter chronic small vessel ischemic changes. There is intracranial internal carotid artery atherosclerosis. Skull and face: Calvarium and visualized facial bones appear intact, without suspicious lesions. Sinuses: Visualized sinuses and mastoids are clear. IMPRESSION: No acute intracranial pathology. No significant changes from previous study. Dictated by: Yannick Valenzuela M.D. on 10/02/2025 at 14:10 Approved by: Yaninck Valenzuela M.D. on 10/02/2025 at 14:11 CTA Head/Neck: Radiologist's Impression: PROCEDURE: CT ANGIO HEAD AND NECK INDICATIONS: worsening R retro-orbital migraine x few weeks; prior coil TECHNIQUE: After the administration of intravenous contrast, 1 mm thick sections acquired from the aortic arch through the [place] of [place]. 3-dimensional crpwkaf-ujbdqhhaw-jpflqtvqpf (MIP) and/or volume rendering reformats were acquired of the central intracranial vasculature and neck separately. For radiation dose reduction, the following was used: automated exposure control, adjustment of mA and/or kV according to patient size. COMPARISON: [facility], CT, CT ANGIO HEAD AND NECK, 08/26/2023, 9:27. FINDINGS: Image quality: Diagnostic. 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 No new aneurysm is seen on the current study. No acute findings. Intracranial ICA are patent with no significant stenosis. No occlusion. Anterior cerebral arteries: Unremarkable. No significant stenosis. No occlusion. No aneurysm. Middle cerebral arteries: Unremarkable. No significant stenosis. No occlusion. No aneurysm. Posterior cerebral arteries: Unremarkable. No significant stenosis. No occlusion. No aneurysm. Basilar artery: Unremarkable. No significant stenosis. No occlusion. No aneurysm. Vertebral arteries: Unremarkable as visualized. Dural venous sinuses: Unremarkable given phase of enhancement. Other: Arterial phase appearance of the brain parenchyma is unremarkable. Neck CT Angiogram: Internal carotid arteries: Unremarkable. No significant stenosis. No dissection or occlusion. Common carotid arteries: Unremarkable. No significant stenosis. No dissection or occlusion. External carotid arteries: Unremarkable. No occlusion. Vertebral arteries: Unremarkable. No significant stenosis. No dissection or occlusion. Aortic Arch and Mediastinum: Partially visualized aortic arch unremarkable without evidence of aneurysm. Origins of the great vessels unremarkable. Other: Arterial phase soft tissues of the neck and chest are unremarkable. IMPRESSION: 1. Prior coiling of right supraclinoid ICA aneurysm. No new aneurysm is seen on the current study. No hemodynamically significant stenosis is seen in the intracranial circulation. 2. No significant abnormality is seen within the arteries of the neck. Any quantitative measurements of stenosis were performed using NASCET criteria. Dictated by: Yannick Valenzuela M.D. on 10/02/2025 at 14:11 Approved by: Yannick Valenzuela M.D. 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 Differential diagnosis includes but is not limited to migraine headache, cluster headache, tension headache, sinusitis, ICH, aneurysm, etc. On exam the patient is in no acute distress, nontoxic appearing, vital signs appropriate. She has had a persistent right retro-orbital migraine for the last few weeks not resolving with her typical migraine medication. She has no focal neurologic deficits but she does not appear to have some or drooping of the right eyelid compared to the left. Given worsening of patient's usual migraine and location of her prior aneurysm coil we will obtain CT brain and CT angio head and neck. She was in this ER in January of 2024 for similar pain and did well with Decadron IV fluids and magnesium therefore we will start with these medications as she has already taken Tylenol and has CKD and therefore we will not start with NSAIDs. We will obtain baseline CBC, CMP, coags. CT head and CTA do not reveal any acute abnormalities, prior coiling of right supraclinoid ICA aneurysm is present. Labs reveal normal WBC count 4.8, hemoglobin 13.3 hematocrit 39.9. Platelets 282. Sodium normal 139, potassium 4.7, BUN 32 creatinine 0.98 with a baseline GFR 56. Normal LFTs. Point of care urinalysis negative. Patient was treated with IV Tylenol, magnesium, Decadron, fluids and did not have significant improvement in her symptoms. She however is requesting discharge home and feels reassured by her imaging today. She was treated with ketorolac, 10 mg, as well. Discussed PCP follow up, Neurology follow up and ER return precautions. Patient verbalized understanding of all information is agreeable with the plan. She is stable for discharge home. <Amber Rivero MD - Last Filed: 10/04/25 01:03> Lab Data Labs: Lab Results 10/02/25 Range/Units 11:10 WBC 4.8 (4.5-11.0) X10^3/uL RBC 4.43 (4.0-5.2) X10^6/uL Hgb 13.3 (12.0-16.0) g/dL Hct 39.9 (36-46) % MCV 90.0 (80-100) fL MCH 30.0 (26-34) PG MCHC 33.3 (30-36) % RDW 14.7 (11.6-14.8) % Plt Count 282 (150-400) X10^3/uL Neut % (Auto) 44.3 L (50-75) % Lymph % (Auto) 31.4 (25-40) % [place] % (Auto) 19.1 H (3-14) % Eos % (Auto) 3.8 (2-4) % Baso % (Auto) 1.4 (0-2) % Neut # (Auto) 2100 (2674-9687) /uL Lymph # (Auto) 1500 (4247-9018) /uL [place] # (Auto) 900 (0-900) /uL Eos # (Auto) 200 (0-450) /uL Baso # (Auto) 100 (0-100) /uL PT 10.7 (9.4-12.5) SECONDS INR 0.9 (0.9-1.3) APTT 29 (25.1-36.5) SECONDS Sodium 139 (137-145) mmol/L Potassium 4.7 (3.4-5.1) mmol/L Chloride 104 (98-107) mmol/L Carbon Dioxide 27 (22-32) mmol/L BUN 32 H (7-17) mg/dL Creatinine 0.98 (0.52-1.04) mg/dL Estimated GFR 56 L (>60) mL/min BUN/Creatinine Ratio 32.7 H (6-22) Glucose 90 (70-99) mg/dL Calcium 9.4 (8.4-10.2) mg/dL Total Bilirubin 0.2 (0.2-1.3) mg/dL AST 32 (14-36) IU/L ALT 21 (<35) IU/L Alkaline Phosphatase 73 (38-126) U/L Total Protein 7.7 (6.3-8.2) g/dL Albumin 4.1 (3.5-5.0) g/dL Globulin 3.6 (1.7-4.1) g/dL Albumin/Globulin Ratio 1.1 (1.0-2.8) Urine Dip Bedside Urine Glucose Negative Bedside Urine Bilirubin - Negative Bedside Urine Ketone - Negative Urine Specific Waves 1.010 Bedside Urine Occult Blood - Negative Bedside Urine pH 6.5 Bedside Urine Protein - Negative Bedside Urine Urobilinogen - Negative Bedside Urine Nitrite - Negative Bedside Urine Leukocytes - Negative Esterase Discharge Plan Departure Patient Disposition: Home Clinical Impression: S/P coil embolization of cerebral aneurysm Migraine headache without aura Qualifiers: Status migrainosus presence: without status migrainosus Intractability: not intractable Qualified Code(s): G43.009 - Migraine without aura, not intractable, without status migrainosus Instructions: DI for Migraine Activity Restrictions/Additional Instructions: Dear Ms. Mathias, Thank you for coming to the emergency department. I am very sorry that you were dealing with a migraine. We obtained lab work and imaging today which did not reveal any changes within your brain. Please follow up with your primary care doctor and your neurologist as soon as possible for further evaluation. Please return to the emergency department immediately if you develop new or worsening symptoms or any other concerns. Please follow up with your primary care doctor within the next 2-3 days for ER follow-up. (If you do not have a PCP you can call [phone]. ?to schedule an appointment with an [facility] Primary Care Provider) IF YOU DEVELOP ANY NEW OR WORSENING SYMPTOMS, RETURN TO THE ER! Please read the attached instructions, they highlight more specific treatments and interventions for you at home. Thank you for letting me participate in your care, Samara Greco PA-C Prescriptions: No Action fluticasone propionate 50 mcg/actuation spray,suspension 1 spray intranasal BID Qty: 48 3RF ezetimibe 10 mg tablet See Rx Instructions .ROUTE .COMPLEX Qty: 90 3RF Dose Instruction: TAKE 1 TABLET DAILY Rx Instructions: TAKE 1 TABLET DAILY nadolol 40 mg tablet 40 mg PO DAILY Qty: 90 1RF nortriptyline 10 mg capsule 10 mg PO BEDTIME MDD 2 MDD Qty: 60 0RF Rx Instructions: PLEASE START WITH 1-10MG CAP AT NIGHT. DO THAT FOR 5-7 NIGHTS. YOU CAN INCREASE TO 2-10MG AFTER THAT. CALL WITH UPDATE omeprazole 20 mg capsule,delayed release(DR/EC) 20 mg PO BID Qty: 180 1RF ergotamine-caffeine 1-100 mg tablet See Rx Instructions .ROUTE .COMPLEX Qty: 30 2RF Dose Instruction: TAKE 1 TABLET EVERY 30 MINUTES. MAXIMUM DAILY DOSE 3 TABLETS. DO NOT EXCEED 3 MG PER DAY OR 5 MG PER WEEK. Rx Instructions: TAKE 1 TABLET EVERY 30 MINUTES NEEDED FOR MIGRAINE. MAXIMUM DAILY DOSE 3 TABLETS. DO NOT EXCEED 3 MG PER DAY OR 5 MG PER WEEK. Ensure MAX Protein Liquid See Rx Instructions PO DAILY Qty: 94703 3RF Rx Instructions: 1 (330mL) to 2 (660mL) orally daily; diclofenac sodium [Voltaren Arthritis Pain] 1 % gel 4 g topical QID Rx Instructions: apply to single knee, ankle, foot; for foot includes sole/toes/top of foot gabapentin 300 mg capsule See Rx Instructions .ROUTE .COMPLEX Qty: 270 3RF Rx Instructions: 300mg with dinner, 600mg before bed; azelastine 137 mcg (0.1 %) spray,non-aerosol 2 spray intranasal BID PRN (Reason: nasal congestion, before possible viral exposure) Qty: 30 5RF Rx Instructions: administer into each nostril Lotemax 0.5 % drops,suspension See Rx Instructions .ROUTE .COMPLEX Rx Instructions: does not know dosing calcium acetate PO cholecalciferol (vitamin D3) 10 mcg (400 unit) capsule 10 mcg PO DAILY multivitamin [One-A-Day Essential] Tablet 1 tab PO DAILY coenzyme Q10 [Co Q-10] 100 mg capsule 100 mg PO DAILY Referrals: Cherie Jimenez DO [Primary Care Provider, Medical] Stand Alone Forms: Patient Portal/API ED Sign-out <Amber Rivero MD - Last Filed: 10/04/25 01:03> Cosign ED Attending Nelda Attestation: I reviewed the documentation entered by the physician assistant store manager operations. I was not directly involved in this patient?s care, but I reviewed the documented history, examination findings, assessment, and plan with the PA. I agree with the evaluation and plan as documented. Amber Rivero MD Emergency Medicine Attending
--- NOTE | 2025-10-02 11:34 | DI.CT.S_ITS ---
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 3-dimensional utbhfxo-nrsbuewcg-xysaaujaod (MIP) and/or volume rendering reformats were acquired of the central intracranial vasculature and neck separately. For radiation dose reduction, the following was used: automated exposure control, adjustment of mA and/or kV according to patient size. COMPARISON: [facility], CT, CT ANGIO HEAD AND NECK, 08/26/2023, 9:27. FINDINGS: Image quality: Diagnostic. 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 No new aneurysm is seen on the current study. No acute findings. Intracranial ICA are patent with no significant stenosis. No occlusion. Anterior cerebral arteries: Unremarkable. No significant stenosis. No occlusion. No aneurysm. Middle cerebral arteries: Unremarkable. No significant stenosis. No occlusion. No aneurysm. Posterior cerebral arteries: Unremarkable. No significant stenosis. No occlusion. No aneurysm. Basilar artery: Unremarkable. No significant stenosis. No occlusion. No aneurysm. Vertebral arteries: Unremarkable as visualized. Dural venous sinuses: Unremarkable given phase of enhancement. Other: Arterial phase appearance of the brain parenchyma is unremarkable. Neck CT Angiogram: Internal carotid arteries: Unremarkable. No significant stenosis. No dissection or occlusion. Common carotid arteries: Unremarkable. No significant stenosis. No dissection or occlusion. External carotid arteries: Unremarkable. No occlusion. Vertebral arteries: Unremarkable. No significant stenosis. No dissection or occlusion. Aortic Arch and Mediastinum: Partially visualized aortic arch unremarkable without evidence of aneurysm. Origins of the great vessels unremarkable. Other: Arterial phase soft tissues of the neck and chest are unremarkable. IMPRESSION: 1. Prior coiling of right supraclinoid ICA aneurysm. No new aneurysm is seen on the current study. No hemodynamically significant stenosis is seen in the intracranial circulation. 2. No significant abnormality is seen within the arteries of the neck. Any quantitative measurements of stenosis were performed using NASCET criteria. Dictated by: Yannick Valenzuela M.D. on 10/02/2025 at 14:11 Approved by: Yannick Valenzuela M.D. on 10/02/2025 at 14:16
--- NOTE | 2025-10-02 11:35 | DI.CT.S_ITS ---
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 For radiation dose reduction, the following was used: automated exposure control, adjustment of mA and/or kV according to patient size. COMPARISON: [facility], CT, CT HEAD/BRAIN WO CON, 08/26/2023, 9:27. FINDINGS: Image quality: Diagnostic. CSF spaces: Basal cisterns are patent. No extra-axial fluid collections. The ventricles are symmetric in size and shape. Brain: Surgical clips is again seen in the region of right [id number]. No intracranial bleeds or mass effect. There is cerebral volume loss, with resultant ventricular and sulcal prominence. There are periventricular and deep white matter chronic small vessel ischemic changes. There is intracranial internal carotid artery atherosclerosis. Skull and face: Calvarium and visualized facial bones appear intact, without suspicious lesions. Sinuses: Visualized sinuses and mastoids are clear. IMPRESSION: No acute intracranial pathology. No significant changes from previous study. Dictated by: Yannick Valenzuela M.D. on 10/02/2025 at 14:10 Approved by: Yannick Valenzuela M.D. on 10/02/2025 at 14:11
[2025-10-02] MEDS: SODIUM CHLORIDE 0.9% 1,000 ML 1000 ML IV (11:46)
[2025-10-02] MEDS: MAGNESIUM SULFATE 2 GM/50 ML PIGGYBACK IV (11:47)
[2025-10-02 12:29] LABS: Add Manual Diff / Slide Review NO; Hematocrit 39.9 % (36-46); Hemoglobin 13.3 g/dL (12.0-16.0); Lymphocytes Absolute Auto 1500 /uL (1100-4500); Mean Corpuscular HGB Conc 33.3 % (30-36); Mean Corpuscular Hemoglobin 30.0 PG (26-34); Mean Corpuscular Volume 90.0 fL (80-100); Platelet Count 282 X10^3/uL (150-400)
[2025-10-02 12:37] LABS: INR 0.9 (0.9-1.3); Prothrombin Time 10.7 SECONDS (9.4-12.5)
[2025-10-02 12:39] LABS: PTT Partial Thromboplastin Tim 29 SECONDS (25.1-36.5)
[2025-10-02 12:41] LABS: Alanine Aminotransferase 21 IU/L (<35); Albumin 4.1 g/dL (3.5-5.0); Albumin Globulin Ratio 1.1 (1.0-2.8); Alkaline Phosphatase 73 U/L (38-126); Blood Urea Nitrogen 32 mg/dL (7-17); Calcium 9.4 mg/dL (8.4-10.2); Carbon Dioxide 27 mmol/L (22-32); Chloride 104 mmol/L (98-107); Estimated Glomerular Filt Rate 56 mL/min (>60); Globulin 3.6 g/dL (1.7-4.1); Glucose 90 mg/dL (70-99); HEMOLYSIS < 15 (0-50); Potassium 4.7 mmol/L (3.4-5.1); Sodium 139 mmol/L (137-145); Total Protein 7.7 g/dL (6.3-8.2)
[2025-10-02] MEDS: ACETAMINOPHEN IV 1,000 MG/100 ML VIAL 400 MG IV (13:09)
[2025-10-02 14:46] VITALS: BP 176/82; PULSE 68; RESP 20; O2SAT 95
[2025-10-02] MEDS: KETOROLAC 30 MG/ML VIAL 10 MG IV (15:02)
== END 2025-10-02 15:29 | disposition home or self-care (01) ==
PROVIDERS: Emergency Provider Physician Assistant; Family Provider Family Medicine; PCP Family Medicine
DX: G43.909 Migraine, unspecified, not intractable, without status migrainosus (principal); I67.1 Cerebral aneurysm, nonruptured; Z87.891 Personal history of nicotine dependence; Z86.79 Personal history of other diseases of the circulatory system
CPT/HCPCS: 36415; 70450; 70496; 70498; 80053; 81003; 85025; 85610; 85730; 96365; 96366; 96368; 96375; 99284; J0131; J1100; J1885; J3475; J7030; Q9967